=== PATIENT | female | born 1930 | race Caucasian/White ===

== ENCOUNTER 2017-07-02 14:07 | Inpatient (IN) | payer MEDICARE ==
[2017-07-02] MEDS ORDERED: Aspirin Low Dose CHEW TAB* 81 MG PO ONE (14:24)
[2017-07-02] MEDS ORDERED: Ondansetron INJ* 2 MG/ML VIAL IV ONE (14:25)
[2017-07-02] MEDS ORDERED: fentaNYL* 50 MCG/ML 2 ML VIAL (100 MCG VIAL) IV SLOW PU ONE ×2 (14:26→16:17)
[2017-07-02 14:46] LABS: Hematocrit 39 % (35-47); Hemoglobin 13.3 g/dl (12.0-16.0); Mean Corpuscular HGB Conc 34 g/dl (31-36); Mean Corpuscular Hemoglobin 31 pg (27-31); Mean Corpuscular Volume 93 fL (80-97); Mean Platelet Volume 9 um3 (7.4-10.4); Red Blood Count 4.24 10^6/ul (4.0-5.4); Red Cell Distribution Width 15 % (10.5-15); White Blood Count 5.4 10^3/ul (3.5-10.8)
[2017-07-02 14:58] LABS: BUN/Creatinine Ratio 19.3 (8-20); Calcium 9.5 mg/dL (8.6-10.3); EGFR African American 44.2 (>60); EGFR Non-African American 34.4 (>60); Globulin 3.8 g/dL (2-4); Potassium 3.4 mmol/L (3.5-5.0); Total Bilirubin 1.2 mg/dL (0.2-1.0); Total Protein 7.8 g/dL (6.4-8.9)
--- NOTE | 2017-07-02 15:35 | RAD ---
Indication: Right hip pain and injury. AP view the pelvis and lateral views of the right hip demonstrates fracture of the neck of the right femur with overriding of the fracture fragments. IMPRESSION: Fracture through the neck of the right femur with overriding of the fracture fragments.
--- NOTE | 2017-07-02 15:35 | RAD ---
Indication: Right Knee pain. 2 views of the left knee demonstrates no fracture. No joint effusion is noted. Degenerative changes of the patellofemoral joint is noted. IMPRESSION: No fracture of the right knee is noted.
--- NOTE | 2017-07-02 15:36 | RAD ---
Indication: Preop clearance. Single view of the chest and shape cardiomegaly. Patient is status post tracer thoracotomy. Lung brothers appear hyperinflated. No alveolar consolidation is noted. IMPRESSION: Cardiomegaly. Hyperinflated lung brothers with no definite evidence of pneumonia.
[2017-07-02] MEDS ORDERED: Potassium Chlor TAB* 20 MEQ TAB.ER PO ONE (16:30)
[2017-07-02] MEDS: hydrALAZINE IV* 20 MG/ML VIAL IV SLOW PU PRN ×2 (17:45→23:44)
[2017-07-02] MEDS: oxyCODONE TAB* 5 MG TAB PO PRN ×2 (17:47→22:18)
--- NOTE | 2017-07-02 18:21 | ED ---
Miranda Lee Thomas, scribed for Raciel Adam MD on 07/02/17 at 1426 . Lower Extremity - HPI Summary HPI Summary: The pt is an 86 y/o F accompanied by son and c/o R hip pain s/p a fall today at14:00. She struck her L hip when she fell down two steps, and she attributes her fall to my right knee gave out. The pain radiates to her knee, but she also notes chronic knee pain. The pain is rated 10/10. The pain is aggravated by movement and alleviated by nothing. The patient has not treated the pain with anything [employer]. She additionally c/o a scrape to her L knee. Pt denies pelvic pain, lower back pain, neck pain, head pain, LOC, and R knee swelling ( she reports that her R knee is unchanged form baseline). She denies any head trauma during this fall. PMHx: A-Fib, HTN, hypothyroidism, CAD, CVA, and arthritis. PSHx: triple bypass (8 years ago), and total knee replacement, hernia. SHx: daily alcohol, former smoker, no illicit drugs. She takes ASA 81mg at home. The last time she ate was 13:00. - History of Current Complaint Chief Complaint: EDExtremityLower Stated Complaint: RT HIP PAIN Time Seen by Provider: 07/02/17 14:16 Hx Obtained From: Patient, Family/Outside Salesperson - son is present Mechanism Of Injury: Fall From Height Of: - two stairs Onset of Pain: Immediate Onset/Duration: Minutes - she fell today at 14:00 Pain Intensity: 10 Pain Scale Used: 0-10 Numeric Timing: Constant Associated Signs And Symptoms: Positive: Knee Pain - although she notes that this may be chronic, Other - POS: scrape to her L knee; NEG: pelvic pain, lower back pain, neck pain, head pain, LOC, or any head trauma. Negative: Swelling - no swelling to R knee, Syncope Aggravating Factor(s): Movement Alleviating Factor(s): Nothing - Allergies/Home Medications Allergies/Adverse Reactions: Allergies Allergy/AdvReac Type Severity Reaction Status Date / Time Levofloxacin [From Levaquin] AdvReac Mild Nausea Verified 07/06/16 11:35 Amlodipine [From Norvasc] AdvReac See Comment Verified 07/02/17 17:28 Atorvastatin [From Lipitor] AdvReac Muscle Ache Verified 07/02/17 17:28 Morphine AdvReac See Comment Verified 07/02/17 17:27 Niacin AdvReac GI Upset Verified 07/02/17 17:28 Ramipril [From Altace] AdvReac Coughing Verified 07/02/17 17:28 Simvastatin [From Zocor] AdvReac Muscle Ache Verified 07/02/17 17:28 Valsartan [From Diovan] AdvReac Fatigue Verified 07/02/17 17:28 Home Medications: Home Medications Aspirin [Aspirin 81 MG TAB] 81 mg PO DAILY 07/02/17 [History Confirmed 07/02/17] Coenzyme Q10 (Ubidecarenone) [Coenzyme Q-10] 100 mg PO DAILY 07/02/17 [History Confirmed 07/02/17] PMH/Surg Hx/FS Hx/Imm Hx Previously Healthy: No Endocrine/Hematology History: Reports: Hx Thyroid Disease - hypothyroidism Cardiovascular History: Reports: Hx Coronary Artery Disease, Hx Hypertension, Other Cardiovascular Problems/Disorders - A-fib Denies: Hx Pacemaker/ICD Musculoskeletal History: Reports: 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, per pt' s physician Sensory History: Reports: Hx Contacts or Glasses - not here Denies: Hx Hearing Aid Opthamlomology History: Reports: Hx Contacts or Glasses - not here Neurological History: Reports: Other Neuro Impairments/Disorders - occassional confusion & forgetfulness Psychiatric History: Reports: Hx Depression Denies: Hx Panic Disorder - Surgical History Surgery Procedure, Year, and Place: CABG 2006, TOTAL KNEE REPLACEMENT (LEFT), HERNIA Hx Anesthesia Reactions: No Infectious Disease History: Yes Infectious Disease History: Denies: Traveled Outside the [place] in Last 30 Days - Family History Known Family History: Positive: Cardiac Disease, Diabetes, Other - breast cancer - Social History Alcohol Use: Daily Alcohol Amount: 1 drink per day Substance Use Type: Reports: None Smoking Status (MU): Former Smoker Review of Systems Positive: Other - POS: R hip pain (08/29, worsened with movement, radiates to knee), knee pain (although she notes chronic knee pain as well); NEG: pelvic pain, lower back pain, neck pain, head pain, R knee swelling Neurological: Other - NEG: LOC All Other Systems Reviewed And Are Negative: Yes Physical Exam - Summary Physical Exam Summary: VITAL SIGNS: Reviewed. GENERAL: ~Patient is an elderly female who is lying comfortable in the stretcher. She is not in any distress. HEAD AND FACE: No signs of trauma. ~No ecchymosis, hematomas or skull depressions. No sinus tenderness. EYES: PERRLA, EOMI x 2, No injected conjunctiva, no nystagmus. EARS: Hearing grossly intact. Ear canals and tympanic membranes are within normal limits. MOUTH: Oropharynx within normal limits. NECK: Supple, trachea is midline, no adenopathy, no JVD, no carotid bruit, no c- spine tenderness, neck with full ROM. CHEST: Symmetric, no tenderness at palpation LUNGS: Clear to auscultation bilaterally. No wheezing or crackles. CVS: Regular rate and rhythm, S1 and S2 present, no murmurs or gallops appreciated. ABDOMEN: Soft, non-tender. No signs of distention. No rebound no guarding, and no masses palpated. Bowel sounds are normal. EXTREMITIES: There is shortening of the right lower extremity. There are good pulses and good capillary refill. Decreased ROM in her L hip secondary to pain. Otherwise, the patient has FROM in all other major joints, no edema, no cyanosis or clubbing. NEURO: Alert and oriented x 3. No acute neurological deficits. Speech is normal and follows commands. SKIN: Dry and warm Triage Information Reviewed: Yes Vital Signs On Initial Exam: Initial Vitals Temp Pulse Resp BP Pulse Ox 99.3 F 82 20 176/106 96 07/02/17 14:16 07/02/17 14:16 07/02/17 14:16 07/02/17 14:16 07/02/17 14:16 Vital Signs Reviewed: Yes - Diya Coma Scale Coma Scale Total: 15 Diagnostics - Vital Signs Vital Signs Temp Pulse Resp BP Pulse Ox 07/02/17 14:16 99.3 F 82 20 176/106 96 - Laboratory Lab Results: Lab Results 07/02/17 07/02/17 07/02/17 Range/Units 14:33 14:33 14:33 WBC 5.4 (3.5-10.8) 10^3/ul RBC 4.24 (4.0-5.4) 10^6/ul Hgb 13.3 (12.0-16.0) g/dl Hct 39 (35-47) % MCV 93 (80-97) fL MCH 31 (27-31) pg MCHC 34 (31-36) g/dl RDW 15 (10.5-15) % Plt Count 136 L (150-450) 10^3/ul MPV 9 (7.4-10.4) um3 Neut % (Auto) 55.6 (38-83) % Lymph % (Auto) 30.0 (25-47) % O'Brien % (Auto) 12.2 H (1-9) % Eos % (Auto) 1.8 (0-6) % Baso % (Auto) 0.4 (0-2) % Absolute Neuts (auto) 3.0 (1.5-7.7) 10^3/ul Absolute Lymphs (auto) 1.6 (1.0-4.8) 10^3/ul Absolute Monos (auto) 0.7 (0-0.8) 10^3/ul Absolute Eos (auto) 0.1 (0-0.6) 10^3/ul Absolute Basos (auto) 0 (0-0.2) 10^3/ul Absolute Nucleated RBC 0.01 10^3/ul Nucleated RBC % 0.1 APTT 27.9 (26.0-36.3) seconds Sodium 137 (133-145) mmol/L Potassium 3.4 L (3.5-5.0) mmol/L Chloride 101 (101-111) mmol/L Carbon Dioxide 29 (22-32) mmol/L Anion Gap 7 (2-11) mmol/L BUN 28 H (6-24) mg/dL Creatinine 1.45 H (0.51-0.95) mg/dL Est GFR ( Amer) 44.2 (>60) Est GFR (Non-Af Amer) 34.4 (>60) BUN/Creatinine Ratio 19.3 (8-20) Glucose 104 H (70-100) mg/dL Calcium 9.5 (8.6-10.3) mg/dL Total Bilirubin 1.20 H (0.2-1.0) mg/dL AST 25 (13-39) U/L ALT 14 (7-52) U/L Alkaline Phosphatase 85 (34-104) U/L Total Creatine Kinase 41 (10-223) U/L Total Protein 7.8 (6.4-8.9) g/dL Albumin 4.0 (3.2-5.2) g/dL Globulin 3.8 (2-4) g/dL Albumin/Globulin Ratio 1.1 (1-3) Result Diagrams: 07/02/17 14:33 07/02/17 14:33 Lab Statement: Any lab studies that have been ordered have been reviewed, and results considered in the medical decision making process. - Radiology CXR Xray Interpretation: No Acute Changes - Cardiomegaly. Hyperinflated lung brothers with no definite evidence of pneumonia. Radiology Interpretation Completed By: Radiologist Knee XR Xray Interpretation: No Acute Changes - no fracture. Radiology Interpretation Completed By: Radiologist Hip XR Xray Interpretation: Positive (See Comments) - Fracture through the neck of the right femur with overriding of the fracture fragments. Radiology Interpretation Completed By: Radiologist - EKG 15:54 Cardiac Rate: NL EKG Interpretation: A-Fib, unchanged from 08/03/2015 Lower Extremity Course/Dx - Course Assessment/Plan: The pt is an 86 y/o F accompanied by son and c/o R hip pain s/ p a fall today at14:00. She struck her L hip when she fell down two steps, and she attributes her fall to my right knee gave out. The pain radiates to her knee, but she also notes chronic knee pain. The pain is rated 10/10. The pain is aggravated by movement and alleviated by nothing. The patient has not treated the pain with anything [employer]. She additionally c/o a scrape to her L knee. Pt denies pelvic pain, lower back pain, neck pain, head pain, LOC, and R knee swelling (she reports that her R knee is unchanged form baseline). She denies any head trauma during this fall. PMHx: A-Fib, HTN, hypothyroidism, CAD, CVA, and arthritis. PSHx: triple bypass (8 years ago), and total knee replacement, hernia. SHx: daily alcohol, former smoker, no illicit drugs. She takes ASA 81mg at home. The last time she ate was 13:00. All tests are without significant abnormalities except Potassium 3.4, for which the patient was given potassium chloride. Tests also reveal a chronic renal insufficiency. Hip XR reveals Fracture through the neck of the right femur with overriding of the fracture fragments. EKG shows A-Fib under rate control. The patient refused pain management; however, she eventually accepted Fentanyl 25 mcg IV x2. Since the patient has a neck fracture of the right hip, I discussed the case with Dr. Faith, orthopedics. He came and examined the patient. He recommends that the patient be admitted. He will consult for this case. I discussed the case with Dr. Ragsdale, hospitalist, who will accept the patient for admission to [facility]. The patient is hemodynamically stable and alert and oriented x3. - Diagnoses Differential Diagnosis/HQI/PQRI: Positive: Bursitis, Cellulitis, Contusion, Dislocation, Fracture (Closed), Sprain, Strain, Tendonitis, Other Provider Diagnoses: Femur neck fracture - Physician Notifications Discussed Care Of Patient With: Edgar Faith Time Discussed With Above Provider: 15:30 Instructed by Provider To: Other - Dr. Faith, orthopedics, came to the ED to assess the patient. I also consulted with Dr. Ragsdale, hospitalist, who will admit the patient to [facility] at 15:50. Discharge - Discharge Plan Condition: Fair Disposition: ADMITTED TO [facility] documentation as recorded by the Miranda manning Thomas accurately reflects the service I personally performed and the decisions made by me, Raciel Adam MD.
[2017-07-02] MEDS: HYDROmorphone* 1 MG/ML 1 ML SYR IV SLOW PU PRN (20:05)
--- NOTE | 2017-07-02 21:47 | HP ---
CC: Dr. Holly * HISTORY AND PHYSICAL: DATE OF ADMISSION: 07/02/17 PRIMARY CARE PROVIDER: Dr. Holly. CHIEF COMPLAINT: Fall and right hip pain. HISTORY OF PRESENT ILLNESS: Ms. Montaño is an 86-year-old female who states that she was walking from her back deck to the yard when she fell. She states that there are 2 steps from her back deck to the yard. There is no railing there. She states that she moved from the deck to the first step without any difficulties, but going from first step to the second step she states that she believes her right leg gave out. She landed on both knees on a slate on landing. She then from her knees fell to her right side. She felt as if she lost balance. She denies any chest pain or lightheadedness. She did not hit her head. She states overall she had been feeling well. PAST MEDICAL HISTORY: 1. Coronary artery disease, status post CABG 8 years ago. 2. Hypertension. 3. History of CVA in 2014. 4. AFib. PAST SURGICAL HISTORY: 1. CABG - 3 vessel. 2. Left total knee replacement. 3. Lens implants bilaterally. MEDICATIONS: 1. Coenzyme Q10 100 mg p.o. daily. 2. Aspirin 81 mg p.o. daily. 3. Compounded T3 and T4, dose unknown. ALLERGIES: AMLODIPINE, LIPITOR, MORPHINE, NIACIN, RAMIPRIL, SIMVASTATIN, VALSARTAN, and LEVOFLOXACIN. FAMILY HISTORY: Mom in her 60's of complications related to type 1 diabetes. Dad from coronary artery disease. SOCIAL HISTORY: The patient is a former smoker. She quit at least 20 to 30 years ago. She does drink alcohol on occasion. She is . She has 2 children. Her son, Fidel is her healthcare proxy. REVIEW OF SYSTEMS: The patient denies any fevers, chills, or anorexia. No chest pain. She does complain of intermittent right ankle swelling. No cough. No shortness of breath. No nausea, vomiting, abdominal pain. She does admit to constipation. No hematochezia. No hematuria. No dysuria. No focal weakness or sensory loss. No sudden changes in vision. No dysphagia. Currently, her right hip and right knee are bothering her. No rash. She does admit to depression since her almost 1 year ago. PHYSICAL EXAMINATION GENERAL: The patient is a well-developed, elderly female, sitting up in a stretcher and in no acute distress. VITAL SIGNS: Blood pressure 190/122, pulse 85, respirations 22, temp 99.3, O2 sat is 94% on room air. HEENT: Pupils are equal. There is evidence of lens implants. Extraocular muscles are intact. Oropharynx is clear. Oral mucosa is moist. There is no submandibular, cervical, or supraclavicular adenopathy. Thyroid is not enlarged. No thyroid nodules are noted. PULMONARY: Lungs are clear to auscultation bilaterally. CARDIAC: Normal S1 and S2. Heart rate is irregularly irregular, but at a controlled rate. I did not appreciate any murmurs. There is no lower extremity edema. ABDOMEN: Bowel sounds are present. Abdomen is soft, nontender, nondistended. MUSCULOSKELETAL: Right lower extremity is shortened externally rotated. SKIN: Warm and dry. There are no rashes. NEURO: Cranial nerves II through XII are grossly intact. Sensation is intact to light touch throughout. Strength in the upper extremities is 5/5 and symmetric bilaterally. Lower extremity strength is not tested due to right hip fracture. PSYCH: The patient is alert. She is oriented to x3. Affect appears appropriate. LABORATORY DATA: WBC 5.4, hemoglobin 13.3, hematocrit 39, platelets 136, PTT 27.9. Sodium 137, potassium 3.4, chloride 101, CO2 of 29, BUN 28, creatinine 1.45, glucose 104, calcium 9.5, bilirubin 1.2, AST 25, ALT 14, alk phos 85, CPK 41, albumin of 4.0. EKG reveals atrial fibrillation with right bundle-branch block. Chest x-ray, cardiomegaly and hyperinflated lungs without evidence of pneumonia. Right knee x- ray no fracture of the right knee is noted. Right hip and pelvis x-rays reveal fracture through the neck of the right femur with overriding of the fracture fragments. ASSESSMENT AND PLAN: Ms. Montaño is an 86-year-old female who sustained a mechanical fall on the day of admission, which resulted in a right hip fracture. 1. Right hip fracture. At this point, the patient appears to be medically stable for the OR. Her EKG is essentially unchanged from EKG from 2015. Her last echocardiogram was in 2015, which revealed moderate concentric LVH. There is focal wall motion abnormality noted. Severe hypokinesis of the proximal inferior septum, proximal inferior wall, and proximal low posterior wall was noted. The EF was estimated to be 45 to 50%. There is moderate to severe tricuspid regurgitation, mild pulmonary hypertension noted at that time. The patient states in general, she is active. She is able to climb 13 stairs without any chest pain or shortness of breath. She does her grocery shopping and walks around the grocery store without any chest pain or shortness of breath. She states that she does go out and golf. She does not walk the course any longer due to pain in her right knee; however, she is able to golf without any discomfort or issues. The patient will continue on her aspirin for now. Plan is for surgery tomorrow afternoon with Dr. Faith. For now, she will be placed on bed rest and she will have Tylenol, oxycodone, and Dilaudid as needed for pain. 2. Hypertension. The patient states that her blood pressure in general runs in the 130s/70s range. Her blood pressure currently is markedly elevated, however, likely related to pain. She will have p.r.n. hydralazine available. She is very hesitant to take this medication and she feels that blood pressure medications cause more problem than good. I have encouraged her to accept the medication at least in the short term. 3. Atrial fibrillation. Currently, the patient's heart rate is controlled. She is not on any blood thinner other than baby aspirin daily. We will monitor for tachycardia or any other complications related to AFib. 4. DVT prophylaxis. The patient will have SCDs alone for DVT prophylaxis as she will be going to the OR tomorrow. DVT prophylaxis should be resumed as soon as possible after surgery. 5. Code status is full and again the patient indicates her son, Fidel is her healthcare proxy. TIME SPENT: 65 minutes was spent admitting this patient. [id number]/[facility] #: [id number] LAURY
[2017-07-02] MEDS ORDERED: Heparin VIAL(*) 5000 UNITS/ML VIAL (FIVE THOUSAND) SUBCUT SCH (22:00)
[2017-07-02] MEDS: NS 0.9% 1000 ML* 1,000 ML IV SCH (22:19)
[2017-07-03] MEDS: HYDROmorphone* 1 MG/ML 1 ML SYR IV SLOW PU PRN ×3 (00:54→12:52)
[2017-07-03] MEDS ORDERED: LORazepam INJ* 2 MG/ML 1 ML VIAL IV PUSH PRN (02:01)
[2017-07-03] MEDS: oxyCODONE TAB* 5 MG TAB PO PRN (02:40)
[2017-07-03] MEDS ORDERED: Famotidine IV* 10 MG/ML 2 ML (20 mg) IV SLOW PU ONE (08:38)
[2017-07-03] MEDS: COENZYME Q10 100 MG PO SCH (09:47)
[2017-07-03] MEDS: Aspirin EC Low Dose* 81 MG TAB.EC PO SCH (09:47)
--- NOTE | 2017-07-03 10:15 | PN ---
Subjective Date of Service: 07/03/17 Interval History: Pt is feeling ok. Her pain is better managed today. She is noting that she is having difficult time getting out her thoughts due to the pain medication. She denies any SOB. Over night she had a hard time urinating on the bedpan but this AM she has been able to go without any issues. Objective Active Medications: Acetaminophen (Tylenol Tab*) 650 mg PO Q4H PRN PRN Reason: PAIN Aspirin (Aspirin Ec Low Dose*) 81 mg PO DAILY [facility] Last Admin: 07/03/17 09:47 Dose: Not Given Coenzyme Q10 (Coenzyme Q10 (Nf)) 1 cap PO DAILY [facility] Last Admin: 07/03/17 09:47 Dose: Not Given Hydralazine HCl (Apresoline Iv*) 5 mg IV SLOW PU Q6H PRN PRN Reason: SBP>170 Last Admin: 07/02/17 23:44 Dose: 5 mg Hydromorphone HCl (Dilaudid Iv*) 0.5 mg IV SLOW PU Q4H PRN PRN Reason: PAIN Last Admin: 07/03/17 07:54 Dose: 0.5 mg Sodium Chloride (Ns 0.9% 1000 Ml*) 1,000 mls @ 75 mls/hr IV PER RATE [facility] Last Admin: 07/02/17 22:19 Dose: 75 mls/hr Lorazepam (Ativan Inj*) 0.5 mg IV PUSH Q6H PRN PRN Reason: ANXIETY Oxycodone HCl (Roxycodone Tab*) 5 mg PO Q4H PRN PRN Reason: PAIN Last Admin: 07/03/17 02:40 Dose: 5 mg Vital Signs 07/02/17 07/02/17 07/02/17 16:14 16:15 16:24 Temperature Pulse Rate 99 Respiratory 22 Rate Blood Pressure 150/121 (mmHg) O2 Sat by Pulse 96 Oximetry 07/02/17 07/02/17 07/02/17 16:30 16:56 17:00 Temperature Pulse Rate 97 85 Respiratory Rate Blood Pressure 195/118 190/122 (mmHg) O2 Sat by Pulse 94 82 Oximetry 07/02/17 07/02/17 07/02/17 17:20 17:25 17:29 Temperature 97.9 F 97.9 F Pulse Rate 102 102 Respiratory 18 18 18 Rate Blood Pressure 185/110 185/110 (mmHg) O2 Sat by Pulse 97 97 Oximetry 07/02/17 07/02/17 07/02/17 17:47 18:08 19:07 Temperature Pulse Rate 100 Respiratory 16 18 25 Rate Blood Pressure 164/100 (mmHg) O2 Sat by Pulse 99 Oximetry 07/02/17 07/02/17 07/02/17 19:47 20:05 21:05 Temperature Pulse Rate Respiratory 16 16 16 Rate Blood Pressure (mmHg) O2 Sat by Pulse Oximetry 07/02/17 07/02/17 07/02/17 21:22 22:18 23:21 Temperature 98.2 F Pulse Rate 97 Respiratory 16 16 16 Rate Blood Pressure 190/112 (mmHg) O2 Sat by Pulse 96 Oximetry 07/03/17 07/03/17 07/03/17 00:18 00:47 00:54 Temperature Pulse Rate 112 Respiratory 16 16 Rate Blood Pressure 184/81 (mmHg) O2 Sat by Pulse Oximetry 07/03/17 07/03/17 07/03/17 01:54 02:40 03:29 Temperature 97.6 F Pulse Rate 93 Respiratory 16 16 16 Rate Blood Pressure 157/92 (mmHg) O2 Sat by Pulse 97 Oximetry 07/03/17 07/03/17 07/03/17 04:40 07:54 08:00 Temperature Pulse Rate Respiratory 16 19 20 Rate Blood Pressure (mmHg) O2 Sat by Pulse Oximetry 07/03/17 07/03/17 08:54 08:57 Temperature 98.0 F Pulse Rate 77 Respiratory 18 14 Rate Blood Pressure 150/84 (mmHg) O2 Sat by Pulse 97 Oximetry Oxygen Devices in Use Now: None Appearance: Elderly thin female lying in bed, NAD Eyes: No Scleral Icterus Ears/Nose/Mouth/Throat: Mucous Membranes Moist Respiratory: Symmetrical Chest Expansion and Respiratory Effort, Clear to Auscultation - anteriorly Cardiovascular: NL Sounds; No Murmurs; No JVD, RRR, No Edema Abdominal: NL Sounds; No Tenderness; No Distention Extremities: No Clubbing, Cyanosis Skin: No Rash or Ulcers, No Nodules or Sclerosis Neurological: - - slilghtly groggy Result Diagrams: 07/02/17 14:33 07/02/17 14:33 Additional Lab and Data: Lab Results 07/02/17 07/02/17 07/02/17 Range/Units 14:33 14:33 14:33 WBC 5.4 (3.5-10.8) 10^3/ul RBC 4.24 (4.0-5.4) 10^6/ul Hgb 13.3 (12.0-16.0) g/dl Hct 39 (35-47) % MCV 93 (80-97) fL MCH 31 (27-31) pg MCHC 34 (31-36) g/dl RDW 15 (10.5-15) % Plt Count 136 L (150-450) 10^3/ul MPV 9 (7.4-10.4) um3 Neut % (Auto) 55.6 (38-83) % Lymph % (Auto) 30.0 (25-47) % [place] % (Auto) 12.2 H (1-9) % Eos % (Auto) 1.8 (0-6) % Baso % (Auto) 0.4 (0-2) % Absolute Neuts (auto) 3.0 (1.5-7.7) 10^3/ul Absolute Lymphs (auto) 1.6 (1.0-4.8) 10^3/ul Absolute Monos (auto) 0.7 (0-0.8) 10^3/ul Absolute Eos (auto) 0.1 (0-0.6) 10^3/ul Absolute Basos (auto) 0 (0-0.2) 10^3/ul Absolute Nucleated RBC 0.01 10^3/ul Nucleated RBC % 0.1 APTT 27.9 (26.0-36.3) seconds Sodium 137 (133-145) mmol/L Potassium 3.4 L (3.5-5.0) mmol/L Chloride 101 (101-111) mmol/L Carbon Dioxide 29 (22-32) mmol/L Anion Gap 7 (2-11) mmol/L BUN 28 H (6-24) mg/dL Creatinine 1.45 H (0.51-0.95) mg/dL Est GFR ( Amer) 44.2 (>60) Est GFR (Non-Af Amer) 34.4 (>60) BUN/Creatinine Ratio 19.3 (8-20) Glucose 104 H (70-100) mg/dL Calcium 9.5 (8.6-10.3) mg/dL Total Bilirubin 1.20 H (0.2-1.0) mg/dL AST 25 (13-39) U/L ALT 14 (7-52) U/L Alkaline Phosphatase 85 (34-104) U/L Total Creatine Kinase 41 (10-223) U/L Total Protein 7.8 (6.4-8.9) g/dL Albumin 4.0 (3.2-5.2) g/dL Globulin 3.8 (2-4) g/dL Albumin/Globulin Ratio 1.1 (1-3) Assess/Plan/Problems-Billing Ms Montaño is an 86 yo F who has a h/o CAD, HTN and afib who presented to the ER with c/o R hip pain s/p mechanical fall. - Patient Problems (1) Closed right hip fracture Current Visit: Yes Status: Acute Code(s): S72.001A - FRACTURE OF UNSP PART OF NECK OF RIGHT FEMUR, INIT SNOMED Code(s): 192082728 Comment: Plan is for the patient to go to the OR later today. Management per orthopedics. (2) HTN (hypertension) Current Visit: Yes Status: Chronic Code(s): I10 - ESSENTIAL (PRIMARY) HYPERTENSION SNOMED Code(s): 14278746 Comment: BP was markedly elevated yesterday in the ER. Improved with prn hydralazine. She will likely need to have an oral agent started post-op however the patient is resistant. Will monitor her BP closely and discuss options with the patient if it becomes clear she needs a program aide group work antihypertensive. For now continue prn hydralazine. (3) Atrial fibrillation Current Visit: Yes Status: Chronic Code(s): I48.91 - UNSPECIFIED ATRIAL FIBRILLATION SNOMED Code(s): 71737814 Comment: The patient is rate controlled on no medications. She is not on any anticoagulants. (4) CAD (coronary artery disease) Current Visit: Yes Status: Chronic Code(s): I25.10 - ATHSCL HEART DISEASE OF [place] CORONARY ARTERY W/O ANG PCTRS SNOMED Code(s): 13228126 Comment: No active issues at this time. Continue ASA 81mg daily. (5) Hypothyroidism Current Visit: Yes Status: Acute Code(s): E03.9 - HYPOTHYROIDISM, UNSPECIFIED SNOMED Code(s): 34597607 Comment: The patient takes compounded leveothyroxine and liothyronine. Her family brought in her medication and this will be started. (6) DVT prophylaxis Current Visit: Yes Status: Acute Code(s): ZTB1491 - SNOMED Code(s): 440778535 Comment: SCDs (7) Patient is full code Current Visit: Yes Status: Acute Priority: High Onset Date: 08/06/15 Code(s): Z78.9 - OTHER SPECIFIED HEALTH STATUS SNOMED Code(s): 398178706
[2017-07-03 10:26] LABS: Hematocrit 39 % (35-47); Hemoglobin 13.3 g/dl (12.0-16.0); Mean Corpuscular HGB Conc 35 g/dl (31-36); Mean Corpuscular Hemoglobin 32 pg (27-31); Mean Corpuscular Volume 92 fL (80-97); Mean Platelet Volume 9 um3 (7.4-10.4); Red Cell Distribution Width 15 % (10.5-15); White Blood Count 7.2 10^3/ul (3.5-10.8)
[2017-07-03 10:40] LABS: BUN/Creatinine Ratio 21.3 (8-20); Calcium 8.9 mg/dL (8.6-10.3); EGFR Non-African American 56.7 (>60); Potassium 3.5 mmol/L (3.5-5.0)
[2017-07-03 12:10] LABS: Urine Bacteria 2+ (Absent); Urine Bilirubin Negative (Negative); Urine Glucose Negative (Negative); Urine Nitrite Negative (Negative)
[2017-07-03] MEDS: LEVOTHYROXINE PO SCH (12:21)
[2017-07-03] MEDS: LIOTHYRONINE PO SCH (12:21)
[2017-07-03] MEDS: cefTRIAXone VIAL(*) 1,000 MG in NS 0.9% 50 ML* 50 ML IVPB SCH (14:17)
[2017-07-03] MEDS ORDERED: Bupivacaine 0.5% W/EPI SDV* 10 ML VIAL INJ ONE (14:52)
[2017-07-03] MEDS ORDERED: Sodium Citrate/Citric Acid* 15 ML UDC ONE (15:36)
[2017-07-03] MEDS ORDERED: fentaNYL* 50 MCG/ML 2 ML VIAL (100 MCG VIAL) ONE ×2 (15:53→19:17)
[2017-07-03] MEDS ORDERED: Lidocaine 2% PF * 5 ML VIAL ONE (16:13)
[2017-07-03] MEDS ORDERED: Propofol* 10 MG/ML 20 ML BTL IV PUSH ONE (16:13)
[2017-07-03] MEDS ORDERED: Succinylcholine* 20 MG/ML 10 ML VIAL ONE (16:26)
[2017-07-03] MEDS ORDERED: Labetalol IV* 5 MG/ML 20 ML VIAL ONE (17:32)
[2017-07-03] MEDS ORDERED: Ondansetron INJ* 2 MG/ML VIAL ONE (18:39)
--- NOTE | 2017-07-03 19:15 | RAD ---
INDICATION: Status post total right hip replacement surgery. COMPARISON: Comparison is made with a prior x-ray study of the right hip from July 02, 2017. TECHNIQUE: AP and lateral films of the right hip were obtained. FINDINGS: The patient is status post right hip replacement surgery. The bones and prostheses are in normal alignment. There is air in the surrounding soft tissues consistent with the patient's recent surgery. There are multiple surgical ciaran present laterally. IMPRESSION: STATUS POST RIGHT HIP REPLACEMENT SURGERY.
[2017-07-03] MEDS: fentaNYL* 50 MCG/ML 2 ML VIAL (100 MCG VIAL) IV PRN ×2 (19:19→19:50)
[2017-07-03] MEDS: NS 0.9% 1000 ML* 1,000 ML IV SCH (20:21)
[2017-07-04 04:58] LABS: Hematocrit 34 % (35-47); Hemoglobin 11.4 g/dl (12.0-16.0); Mean Corpuscular HGB Conc 34 g/dl (31-36); Mean Corpuscular Hemoglobin 31 pg (27-31); Mean Corpuscular Volume 92 fL (80-97); Mean Platelet Volume 9 um3 (7.4-10.4); Red Blood Count 3.68 10^6/ul (4.0-5.4); Red Cell Distribution Width 15 % (10.5-15); White Blood Count 14.1 10^3/ul (3.5-10.8)
[2017-07-04] MEDS ORDERED: NS 0.9% 250 ML* 250 ML IV ONE (05:00)
[2017-07-04] MEDS: NS 0.9% 1000 ML* 1,000 ML IV SCH ×2 (05:37→18:34)
--- NOTE | 2017-07-04 06:39 | OP ---
DATE OF OPERATION: 07/03/17 - ROOM #335 DATE OF : 34 SURGEON: Edgar Faith MD LEAF SUCKER OPERATOR: ROBERT Valderrama- ANESTHESIOLOGIST: Tung Small DO ANESTHESIA: General. PRE-OP DIAGNOSIS: Right completely displaced femoral neck fracture, [place] IV. POST-OP DIAGNOSIS: Right completely displaced femoral neck fracture, [place] IV. OPERATIVE PROCEDURE: Right non-cemented hip hemiarthroplasty. CONDITION: The patient tolerated the procedure well. COMPONENTS USED: Size 46 outer diameter head, size #3.5 Accolade stem, Mears components, and size 28 mm inner diameter head and 0 neck. The Hemovac drain was not used. INDICATIONS FOR SURGERY: Ms. Mely Montaño is an 86-year-old female who was in her usual state of good health when she slipped and fell at home and sustained a femoral neck fracture, completely displaced. She lives alone and she was transported to the [facility], where appropriate films verified that she had a completely displaced femoral neck fracture. The risks and benefits of operative versus nonoperative intervention were thoroughly discussed with the patient and her son and due to the fact that she did not have prior hip pain in the past prior to the fall and the fact that she is a household and infrequent community ambulator, the plan was for her to have a right hip hemiarthroplasty. The patient was seen and evaluated by Medicine, Dr. Coby Ragsdale, and Dr. Coby Ragsdale gave the patient a favorable evaluation that surgery in the form of hemiarthroplasty of the right hip could be performed with acceptable risk. ESTIMATED BLOOD LOSS: Minimal. DESCRIPTION OF PROCEDURE: The patient was subsequently taken to the operating room therefore on 07/03/17, and after anesthesia was administered, the patient was appropriately positioned on the operating room table right side up and a time-out was called prior to the start of procedure. Of note, in the pre-op holding area, I placed my initials on the patient's right hip to verify that the right hip was indeed the correct hip. Again, we proceeded to the operating room, and prior to the start of the procedure, time- out was called, again verified that the right hip was the correct hip and that all necessary equipment for the procedure was available for my use. A standard modified Schwab incision was used to approach the right hip. Skin was incised with a #10 blade followed by a second #10 blade for superficial and deep subcu. The tensor fascia eloisa was identified and split along the length of the incision, which was approximately 7 cm. The tensor fascia eloisa was then retracted, and my acute care certified nursing assistant, Gladys Sahu, internally rotated the hip to place the short external rotators on stretch, they were tagged and reflected posteriorly to protect the underlying sciatic nerve. Then the capsule was tagged and then reflected posteriorly and then I readily identified the acetabulum and the femoral head. With the aid of corkscrew device, the femoral head was removed and passed to the back table. Then, the neck was cut in the usual standard fashion and then I used the appropriate acetabular sizers to verify that we need a size 46-mm femoral head outer bearing. We verified that we need a size 46, which was then prepared. I prepared with my acute care certified nursing assistant, Gladys Sahu, the proximal femur and then I verified I needed a size #3.5 Accolade stem 127 degree angle. I then with a broach, performed trial reduction and verified that in full extension, the sciatic nerve was not taut. At 90 degrees, the hip was stable; adduction across the midline, the hip was stable; internal rotation and adduction, the hip remained stable, after which I then dislocated the hip, removed the trial components and then placed the actual components in place and verified our excellent intraoperative reduction, was repeated with the actual components in place, after which we then irrigated the wound copiously and then closed the tensor fascia eloisa with interrupted Ti- Cron suture in a [id number] fashion followed by 0 and 2-0 Vicryl for deep and superficial subcu, followed by skin ciaran for skin. Standard dressings were applied including abduction pillow and the patient was then transported off the operating table through the stretcher into the recovery room having tolerated the procedure well. [id number]/[facility] #: [id number] LAURY
[2017-07-04 07:47] LABS: BUN/Creatinine Ratio 22.8 (8-20); Calcium 8.3 mg/dL (8.6-10.3); EGFR African American 67.2 (>60); EGFR Non-African American 52.2 (>60); Potassium 3.5 mmol/L (3.5-5.0)
[2017-07-04] MEDS: LEVOTHYROXINE PO SCH (07:54)
[2017-07-04] MEDS: Aspirin EC Low Dose* 81 MG TAB.EC PO SCH (07:54)
[2017-07-04] MEDS: LIOTHYRONINE PO SCH (07:54)
[2017-07-04] MEDS: Acetaminophen TAB* 325 MG PO PRN ×2 (07:54→16:51)
--- NOTE | 2017-07-04 09:28 | PN ---
Subjective Date of Service: 07/04/17 Interval History: Pt is feeling well. Her son notes that she is grumpy and slightly confused this AM which he states is usual as she comes out of anesthesia. She states the hip abductor pillow is uncomfortable. She also would like her coffee. She denies any significant pain in the R hip. Objective Active Medications: Acetaminophen (Tylenol Tab*) 650 mg PO Q4H PRN PRN Reason: PAIN Last Admin: 07/04/17 07:54 Dose: 650 mg Aspirin (Aspirin Ec Low Dose*) 81 mg PO DAILY [facility] Last Admin: 07/04/17 07:54 Dose: 81 mg Coenzyme Q10 (Coenzyme Q10 (Nf)) 1 cap PO DAILY [facility] Last Admin: 07/03/17 09:47 Dose: Not Given Hydralazine HCl (Apresoline Iv*) 5 mg IV SLOW PU Q6H PRN PRN Reason: SBP>170 Last Admin: 07/02/17 23:44 Dose: 5 mg Hydromorphone HCl (Dilaudid Iv*) 0.5 mg IV SLOW PU Q4H PRN PRN Reason: PAIN Last Admin: 07/03/17 12:52 Dose: 0.5 mg Ceftriaxone Sodium 1,000 mg/ (Sodium Chloride) 50 mls @ 200 mls/hr IVPB Q24H [facility] Last Admin: 07/03/17 14:17 Dose: 200 mls/hr Sodium Chloride (Ns 0.9% 1000 Ml*) 1,000 mls @ 125 mls/hr IV PER RATE [facility] Last Admin: 07/04/17 05:37 Dose: 125 mls/hr Lorazepam (Ativan Inj*) 0.5 mg IV PUSH Q6H PRN PRN Reason: ANXIETY Pto: Levothyroxine 49.25 Mcg- Liothyronine 0.75 Mcg Cap 1 dose PO DAILY@0600 [facility] Last Admin: 07/04/17 07:54 Dose: 1 dose Oxycodone HCl (Roxycodone Tab*) 5 mg PO Q4H PRN PRN Reason: PAIN Last Admin: 07/03/17 02:40 Dose: 5 mg Vital Signs 07/03/17 07/03/17 07/03/17 11:43 12:52 13:52 Temperature 97.7 F Pulse Rate 68 Respiratory 14 20 18 Rate Blood Pressure 172/92 (mmHg) O2 Sat by Pulse 98 Oximetry 07/03/17 07/03/17 07/03/17 18:15 18:20 18:25 Temperature 97.2 F Pulse Rate 91 91 91 Respiratory 16 16 16 Rate Blood Pressure 137/96 138/85 141/89 (mmHg) O2 Sat by Pulse 93 92 93 Oximetry 07/03/17 07/03/17 07/03/17 18:30 18:35 18:45 Temperature Pulse Rate 90 95 90 Respiratory 14 14 14 Rate Blood Pressure 139/100 141/82 137/88 (mmHg) O2 Sat by Pulse 93 92 93 Oximetry 07/03/17 07/03/17 07/03/17 19:00 19:15 19:19 Temperature Pulse Rate 100 95 Respiratory 16 15 15 Rate Blood Pressure 160/92 136/89 (mmHg) O2 Sat by Pulse 92 93 Oximetry 07/03/17 07/03/17 07/03/17 19:30 19:45 19:50 Temperature 98.6 F Pulse Rate 96 89 Respiratory 15 14 14 Rate Blood Pressure 157/83 160/82 (mmHg) O2 Sat by Pulse 99 98 Oximetry 07/03/17 07/03/17 07/03/17 20:00 20:12 20:19 Temperature 98.2 F 98.2 F Pulse Rate 104 104 Respiratory 17 17 17 Rate Blood Pressure 148/88 148/88 (mmHg) O2 Sat by Pulse 93 93 Oximetry 07/03/17 07/03/17 07/03/17 20:44 20:49 20:50 Temperature Pulse Rate Respiratory 17 17 18 Rate Blood Pressure (mmHg) O2 Sat by Pulse Oximetry 07/03/17 07/03/17 07/03/17 20:59 22:15 22:31 Temperature 99.8 F 99.9 F Pulse Rate 107 121 109 Respiratory 18 17 Rate Blood Pressure 112/75 149/91 (mmHg) O2 Sat by Pulse 95 97 Oximetry 07/03/17 07/04/17 07/04/17 23:55 01:17 01:54 Temperature 97.3 F 99.2 F Pulse Rate 112 111 101 Respiratory 16 16 Rate Blood Pressure 171/96 163/74 165/72 (mmHg) O2 Sat by Pulse 97 99 Oximetry 07/04/17 07/04/17 04:41 07:49 Temperature 97.7 F Pulse Rate 98 Respiratory 16 12 Rate Blood Pressure 140/70 (mmHg) O2 Sat by Pulse 94 Oximetry Oxygen Devices in Use Now: None Appearance: Elderly female sitting up in bed, NAD Eyes: No Scleral Icterus Ears/Nose/Mouth/Throat: Mucous Membranes Moist Respiratory: Symmetrical Chest Expansion and Respiratory Effort, Clear to Auscultation Cardiovascular: NL Sounds; No Murmurs; No JVD, No Edema, - - irregularly irregular, controlled rate Abdominal: NL Sounds; No Tenderness; No Distention Extremities: No Clubbing, Cyanosis Skin: No Rash or Ulcers, No Nodules or Sclerosis, - - hip incision not inspected by me Neurological: Alert and Oriented x 3 Result Diagrams: 07/04/17 04:43 07/04/17 04:43 Additional Lab and Data: Lab Results 07/02/17 07/02/17 07/02/17 Range/Units 14:33 14:33 14:33 WBC 5.4 (3.5-10.8) 10^3/ul RBC 4.24 (4.0-5.4) 10^6/ul Hgb 13.3 (12.0-16.0) g/dl Hct 39 (35-47) % MCV 93 (80-97) fL MCH 31 (27-31) pg MCHC 34 (31-36) g/dl RDW 15 (10.5-15) % Plt Count 136 L (150-450) 10^3/ul MPV 9 (7.4-10.4) um3 Neut % (Auto) 55.6 (38-83) % Lymph % (Auto) 30.0 (25-47) % [place] % (Auto) 12.2 H (1-9) % Eos % (Auto) 1.8 (0-6) % Baso % (Auto) 0.4 (0-2) % Absolute Neuts (auto) 3.0 (1.5-7.7) 10^3/ul Absolute Lymphs (auto) 1.6 (1.0-4.8) 10^3/ul Absolute Monos (auto) 0.7 (0-0.8) 10^3/ul Absolute Eos (auto) 0.1 (0-0.6) 10^3/ul Absolute Basos (auto) 0 (0-0.2) 10^3/ul Absolute Nucleated RBC 0.01 10^3/ul Nucleated RBC % 0.1 APTT 27.9 (26.0-36.3) seconds Sodium 137 (133-145) mmol/L Potassium 3.4 L (3.5-5.0) mmol/L Chloride 101 (101-111) mmol/L Carbon Dioxide 29 (22-32) mmol/L Anion Gap 7 (2-11) mmol/L BUN 28 H (6-24) mg/dL Creatinine 1.45 H (0.51-0.95) mg/dL Est GFR ( Amer) 44.2 (>60) Est GFR (Non-Af Amer) 34.4 (>60) BUN/Creatinine Ratio 19.3 (8-20) Glucose 104 H (70-100) mg/dL Calcium 9.5 (8.6-10.3) mg/dL Total Bilirubin 1.20 H (0.2-1.0) mg/dL AST 25 (13-39) U/L ALT 14 (7-52) U/L Alkaline Phosphatase 85 (34-104) U/L Total Creatine Kinase 41 (10-223) U/L Total Protein 7.8 (6.4-8.9) g/dL Albumin 4.0 (3.2-5.2) g/dL Globulin 3.8 (2-4) g/dL Albumin/Globulin Ratio 1.1 (1-3) Assess/Plan/Problems-Billing Ms Montaño is an 86 yo F who has a h/o CAD, HTN and afib who presented to the ER with c/o R hip pain s/p mechanical fall. - Patient Problems (1) Closed right hip fracture Current Visit: Yes Status: Acute Code(s): S72.001A - FRACTURE OF UNSP PART OF NECK OF RIGHT FEMUR, INIT SNOMED Code(s): 389277429 Comment: The patient is s/p R hemiarthroplasty. PT to work with the patient this AM. Management per orthopedics. ? PMRU for STR. (2) HTN (hypertension) Current Visit: Yes Status: Chronic Code(s): I10 - ESSENTIAL (PRIMARY) HYPERTENSION SNOMED Code(s): 09467843 Comment: The patient's SBP is moderately elevated in the 150-170 range. She has not had a dose of hydralazine since PM 07/02/17. Will discuss with pt about starting low dose antihypertensive. (3) Atrial fibrillation Current Visit: Yes Status: Chronic Code(s): I48.91 - UNSPECIFIED ATRIAL FIBRILLATION SNOMED Code(s): 13178870 Comment: The patient is rate controlled on no medications. She is not on any anticoagulants. (4) CAD (coronary artery disease) Current Visit: Yes Status: Chronic Code(s): I25.10 - ATHSCL HEART DISEASE OF [place] CORONARY ARTERY W/O ANG PCTRS SNOMED Code(s): 56365025 Comment: No active issues at this time. Continue ASA 81mg daily. (5) Hypothyroidism Current Visit: Yes Status: Acute Code(s): E03.9 - HYPOTHYROIDISM, UNSPECIFIED SNOMED Code(s): 86224953 Comment: Continue compounded levothyroxine and liothyronine. (6) DVT prophylaxis Current Visit: Yes Status: Acute Code(s): OSJ5612 - SNOMED Code(s): 297913064 Comment: SCDs (7) Patient is full code Current Visit: Yes Status: Acute Onset Date: 08/06/15 Code(s): Z78.9 - OTHER SPECIFIED HEALTH STATUS SNOMED Code(s): 234441451
[2017-07-04] MEDS: COENZYME Q10 100 MG PO SCH (10:20)
[2017-07-04] MEDS: cefTRIAXone VIAL(*) 1,000 MG in NS 0.9% 50 ML* 50 ML IVPB SCH (14:51)
[2017-07-04] MEDS ORDERED: NS 0.9% 1000 ML* 1,000 ML IV ONE (15:30)
[2017-07-05] MEDS: NS 0.9% 1000 ML* 1,000 ML IV SCH ×3 (02:22→18:25)
[2017-07-05] MEDS: Acetaminophen TAB* 325 MG PO PRN (04:23)
[2017-07-05] MEDS: LIOTHYRONINE PO SCH (05:28)
[2017-07-05] MEDS: LEVOTHYROXINE PO SCH (05:28)
[2017-07-05 07:03] LABS: Hematocrit 29 % (35-47); Hemoglobin 9.7 g/dl (12.0-16.0); Mean Corpuscular HGB Conc 34 g/dl (31-36); Mean Corpuscular Hemoglobin 31 pg (27-31); Mean Corpuscular Volume 93 fL (80-97); Mean Platelet Volume 9 um3 (7.4-10.4); Red Blood Count 3.09 10^6/ul (4.0-5.4); Red Cell Distribution Width 15 % (10.5-15); White Blood Count 9.7 10^3/ul (3.5-10.8)
[2017-07-05 07:16] LABS: BUN/Creatinine Ratio 26.1 (8-20); Calcium 7.9 mg/dL (8.6-10.3); EGFR African American 57.8 (>60); Potassium 3.5 mmol/L (3.5-5.0)
[2017-07-05] MEDS: oxyCODONE TAB* 5 MG TAB PO PRN (08:40)
[2017-07-05] MEDS: Aspirin EC Low Dose* 81 MG TAB.EC PO SCH (08:41)
[2017-07-05] MEDS: OMEGA Q PLUS PO SCH (08:41)
--- NOTE | 2017-07-05 10:17 | PN ---
Subjective Date of Service: 07/05/17 Interval History: Pt is feeling poorly this AM. She states she is having a lot of pain in her R hip. She feels uncomfortable on her back. No SOB or CP. Nursing notes the patient's speech is slower and slightly slurred this AM. Objective Active Medications: Acetaminophen (Tylenol Tab*) 975 mg PO Q6HR [facility] Aspirin (Aspirin Ec Low Dose*) 81 mg PO DAILY [facility] Last Admin: 07/05/17 08:41 Dose: 81 mg Hydralazine HCl (Apresoline Iv*) 5 mg IV SLOW PU Q6H PRN PRN Reason: SBP>170 Last Admin: 07/02/17 23:44 Dose: 5 mg Hydromorphone HCl (Dilaudid Iv*) 0.5 mg IV SLOW PU Q4H PRN PRN Reason: PAIN Last Admin: 07/03/17 12:52 Dose: 0.5 mg Ceftriaxone Sodium 1,000 mg/ (Sodium Chloride) 50 mls @ 200 mls/hr IVPB Q24H [facility] Last Admin: 07/04/17 14:51 Dose: 200 mls/hr Sodium Chloride (Ns 0.9% 1000 Ml*) 1,000 mls @ 125 mls/hr IV PER RATE [facility] Last Admin: 07/05/17 02:22 Dose: 125 mls/hr Lorazepam (Ativan Inj*) 0.5 mg IV PUSH Q6H PRN PRN Reason: ANXIETY Pto: Levothyroxine 49.25 Mcg- Liothyronine 0.75 Mcg Cap 1 dose PO DAILY@0600 [facility] Last Admin: 07/05/17 05:28 Dose: 1 dose Pto:Non Formulary (Med [place] Q Plus) 2 dose PO DAILY [facility] Last Admin: 07/05/17 08:41 Dose: 2 dose Oxycodone HCl (Roxycodone Tab*) 5 mg PO Q4H PRN PRN Reason: PAIN Last Admin: 07/05/17 08:40 Dose: 5 mg Vital Signs 07/04/17 07/04/17 07/04/17 11:34 11:45 15:32 Temperature 99.2 F 97.9 F Pulse Rate 99 87 Respiratory 13 16 Rate Blood Pressure 103/60 115/54 (mmHg) O2 Sat by Pulse 93 95 Oximetry 07/04/17 07/04/17 07/04/17 16:00 21:15 23:21 Temperature 97.3 F 97.6 F Pulse Rate 73 81 Respiratory 18 16 Rate Blood Pressure 125/65 128/65 (mmHg) O2 Sat by Pulse 95 96 96 Oximetry 07/04/17 07/05/17 07/05/17 23:44 03:28 07:39 Temperature 97.9 F 97.9 F Pulse Rate 92 95 Respiratory 14 14 16 Rate Blood Pressure 157/78 145/66 (mmHg) O2 Sat by Pulse 97 95 Oximetry 07/05/17 07/05/17 07/05/17 08:14 08:25 08:40 Temperature Pulse Rate Respiratory 16 16 18 Rate Blood Pressure (mmHg) O2 Sat by Pulse Oximetry Oxygen Devices in Use Now: None Appearance: Elderly female who appears tired and wiped out lying in bed, NAD Eyes: No Scleral Icterus Ears/Nose/Mouth/Throat: Mucous Membranes Moist Respiratory: Symmetrical Chest Expansion and Respiratory Effort, Clear to Auscultation - anteriorly Cardiovascular: NL Sounds; No Murmurs; No JVD, No Edema, - - irregularly irregular Abdominal: NL Sounds; No Tenderness; No Distention Extremities: No Clubbing, Cyanosis, - - L hip dressing clean and dry Skin: No Rash or Ulcers, No Nodules or Sclerosis Neurological: Alert and Oriented x 3, - - pt is tearful and weeps some, speech is minimally slurred and there is perhaps a minimal L facial droop- not significantly changed from prior. Result Diagrams: 07/05/17 06:44 07/05/17 06:44 Additional Lab and Data: Lab Results 07/02/17 07/02/17 07/02/17 Range/Units 14:33 14:33 14:33 WBC 5.4 (3.5-10.8) 10^3/ul RBC 4.24 (4.0-5.4) 10^6/ul Hgb 13.3 (12.0-16.0) g/dl Hct 39 (35-47) % MCV 93 (80-97) fL MCH 31 (27-31) pg MCHC 34 (31-36) g/dl RDW 15 (10.5-15) % Plt Count 136 L (150-450) 10^3/ul MPV 9 (7.4-10.4) um3 Neut % (Auto) 55.6 (38-83) % Lymph % (Auto) 30.0 (25-47) % [place] % (Auto) 12.2 H (1-9) % Eos % (Auto) 1.8 (0-6) % Baso % (Auto) 0.4 (0-2) % Absolute Neuts (auto) 3.0 (1.5-7.7) 10^3/ul Absolute Lymphs (auto) 1.6 (1.0-4.8) 10^3/ul Absolute Monos (auto) 0.7 (0-0.8) 10^3/ul Absolute Eos (auto) 0.1 (0-0.6) 10^3/ul Absolute Basos (auto) 0 (0-0.2) 10^3/ul Absolute Nucleated RBC 0.01 10^3/ul Nucleated RBC % 0.1 APTT 27.9 (26.0-36.3) seconds Sodium 137 (133-145) mmol/L Potassium 3.4 L (3.5-5.0) mmol/L Chloride 101 (101-111) mmol/L Carbon Dioxide 29 (22-32) mmol/L Anion Gap 7 (2-11) mmol/L BUN 28 H (6-24) mg/dL Creatinine 1.45 H (0.51-0.95) mg/dL Est GFR ( Amer) 44.2 (>60) Est GFR (Non-Af Amer) 34.4 (>60) BUN/Creatinine Ratio 19.3 (8-20) Glucose 104 H (70-100) mg/dL Calcium 9.5 (8.6-10.3) mg/dL Total Bilirubin 1.20 H (0.2-1.0) mg/dL AST 25 (13-39) U/L ALT 14 (7-52) U/L Alkaline Phosphatase 85 (34-104) U/L Total Creatine Kinase 41 (10-223) U/L Total Protein 7.8 (6.4-8.9) g/dL Albumin 4.0 (3.2-5.2) g/dL Globulin 3.8 (2-4) g/dL Albumin/Globulin Ratio 1.1 (1-3) Microbiology and Other Data: Microbiology 07/03/17 07:50 Urine Culture - Final Urine Escherichia Coli Assess/Plan/Problems-Billing Ms Montaño is an 86 yo F who has a h/o CAD, HTN and afib who presented to the ER with c/o R hip pain s/p mechanical fall. - Patient Problems (1) Slurred speech Current Visit: Yes Status: Acute Code(s): R47.81 - SLURRED SPEECH SNOMED Code(s): 157698679 Comment: The patient had mild slurred speech this AM. She appeared very tired to me. She had not had any narcotics recently. Will recheck later this AM for improvement. (2) Closed right hip fracture Current Visit: Yes Status: Acute Code(s): S72.001A - FRACTURE OF UNSP PART OF NECK OF RIGHT FEMUR, INIT SNOMED Code(s): 283767549 Comment: The patient is s/p R hemiarthroplasty. Continue PT/OT. ? PMRU vs CHAVEZ. (3) HTN (hypertension) Current Visit: Yes Status: Chronic Code(s): I10 - ESSENTIAL (PRIMARY) HYPERTENSION SNOMED Code(s): 83722966 Comment: BP is under better control despite not being on any medication. Will continue to monitor. (4) Atrial fibrillation Current Visit: Yes Status: Chronic Code(s): I48.91 - UNSPECIFIED ATRIAL FIBRILLATION SNOMED Code(s): 96862018 Comment: The patient is rate controlled on no medications. She is not on any anticoagulants. Continue ASA. (5) CAD (coronary artery disease) Current Visit: Yes Status: Chronic Code(s): I25.10 - ATHSCL HEART DISEASE OF [place] CORONARY ARTERY W/O ANG PCTRS SNOMED Code(s): 29314871 Comment: No active issues at this time. Continue ASA 81mg daily. (6) Hypothyroidism Current Visit: Yes Status: Acute Code(s): E03.9 - HYPOTHYROIDISM, UNSPECIFIED SNOMED Code(s): 11728914 Comment: Continue compounded levothyroxine and liothyronine. (7) DVT prophylaxis Current Visit: Yes Status: Acute Code(s): KGB3028 - SNOMED Code(s): 693070439 Comment: SCDs-will discuss pharmacologic anticoagulation with Dr. Faith. (8) Patient is full code Current Visit: Yes Status: Acute Onset Date: 08/06/15 Code(s): Z78.9 - OTHER SPECIFIED HEALTH STATUS SNOMED Code(s): 747498197
[2017-07-05] MEDS ORDERED: Senna TAB PO PRN (10:46)
[2017-07-05] MEDS: Acetaminophen TAB* 325 MG PO SCH ×2 (12:07→18:05)
[2017-07-05] MEDS: Polyethylene Glycol 3350* 17 GM PACKET PO SCH (12:07)
[2017-07-05] MEDS: cefTRIAXone VIAL(*) 1,000 MG in NS 0.9% 50 ML* 50 ML IVPB SCH (14:30)
[2017-07-05] MEDS: Docusate CAP* 100 MG PO SCH (20:36)
[2017-07-06] MEDS: Acetaminophen TAB* 325 MG PO SCH ×4 (00:04→18:18)
[2017-07-06] MEDS: NS 0.9% 1000 ML* 1,000 ML IV SCH (02:37)
[2017-07-06] MEDS: LIOTHYRONINE PO SCH (06:27)
[2017-07-06] MEDS: LEVOTHYROXINE PO SCH (06:27)
[2017-07-06] MEDS: Cephalexin CAP* 500 MG PO SCH ×5 (06:27→20:46)
[2017-07-06] MEDS: Aspirin EC Low Dose* 81 MG TAB.EC PO SCH (07:40)
[2017-07-06] MEDS: Rivaroxaban TAB(*) 10 MG PO SCH ×2 (07:41→08:26)
[2017-07-06] MEDS: Docusate CAP* 100 MG PO SCH ×2 (07:41→20:47)
[2017-07-06] MEDS: Polyethylene Glycol 3350* 17 GM PACKET PO SCH (07:41)
[2017-07-06] MEDS: hydrALAZINE IV* 20 MG/ML VIAL IV SLOW PU PRN (07:42)
[2017-07-06] MEDS: OMEGA Q PLUS PO SCH (07:42)
[2017-07-06] MEDS ORDERED: Rivaroxaban TAB(*) 10 MG PO SCH (09:00)
[2017-07-06] MEDS ORDERED: Enoxaparin(*) 40 MG/0.4 ML SYR SUBCUT SCH (11:00)
--- NOTE | 2017-07-06 11:04 | PN ---
Subjective Date of Service: 07/06/17 Interval History: Pt states she is feeling ok. She denies pain in her hip. She states she will absolutely will not take the xarelto. When I stated that was fine and we could use lovenox she became tearful and demanded to know how the lovenox works. Objective Active Medications: Acetaminophen (Tylenol Tab*) 975 mg PO Q6HR [facility] Last Admin: 07/06/17 06:27 Dose: 975 mg Aspirin (Aspirin Ec Low Dose*) 81 mg PO DAILY [facility] Last Admin: 07/06/17 07:40 Dose: 81 mg Cephalexin HCl (Keflex Cap*) 500 mg PO QID [facility] Last Admin: 07/06/17 07:41 Dose: 500 mg Docusate Sodium (Colace Cap*) 100 mg PO BID [facility] Last Admin: 07/06/17 07:41 Dose: 100 mg Enoxaparin Sodium (Lovenox(*)) 40 mg SUBCUT Q24H [facility] Hydralazine HCl (Apresoline Iv*) 5 mg IV SLOW PU Q6H PRN PRN Reason: SBP>170 Last Admin: 07/06/17 07:42 Dose: 5 mg Lorazepam (Ativan Inj*) 0.5 mg IV PUSH Q6H PRN PRN Reason: ANXIETY Last Admin: 07/05/17 20:57 Dose: 0.5 mg Pto: Levothyroxine 49.25 Mcg- Liothyronine 0.75 Mcg Cap 1 dose PO DAILY@0600 [facility] Last Admin: 07/06/17 06:27 Dose: 1 dose Pto:Non Formulary (Med [place] Q Plus) 2 dose PO DAILY [facility] Last Admin: 07/06/17 07:42 Dose: 2 dose Oxycodone HCl (Roxycodone Tab*) 5 mg PO Q4H PRN PRN Reason: PAIN Last Admin: 07/05/17 08:40 Dose: 5 mg Polyethylene Glycol/Electrolytes (Miralax*) 17 gm PO DAILY [facility] Last Admin: 07/06/17 07:41 Dose: 17 gm Senna (Senokot Tab*) 1 tab PO BEDTIME PRN PRN Reason: CONSTIPATION Vital Signs 07/05/17 07/05/17 07/05/17 11:45 15:13 16:00 Temperature 98.9 F 97.6 F Pulse Rate 86 77 Respiratory 16 15 Rate Blood Pressure 134/65 147/54 (mmHg) O2 Sat by Pulse 98 97 97 Oximetry 07/05/17 07/05/17 07/05/17 20:35 20:57 21:11 Temperature 97.9 F Pulse Rate 129 Respiratory 18 18 18 Rate Blood Pressure 143/78 (mmHg) O2 Sat by Pulse 97 Oximetry 07/05/17 07/05/17 07/06/17 21:57 23:58 03:22 Temperature 98.0 F 98.0 F Pulse Rate 76 77 Respiratory 20 16 16 Rate Blood Pressure 166/78 162/87 (mmHg) O2 Sat by Pulse 99 99 Oximetry 07/06/17 07:16 Temperature 97.6 F Pulse Rate 79 Respiratory 11 Rate Blood Pressure 188/109 (mmHg) O2 Sat by Pulse 98 Oximetry Oxygen Devices in Use Now: None Appearance: Elderly female sitting up in bed, NAD Eyes: No Scleral Icterus Ears/Nose/Mouth/Throat: Mucous Membranes Moist Respiratory: Symmetrical Chest Expansion and Respiratory Effort, Clear to Auscultation Cardiovascular: NL Sounds; No Murmurs; No JVD, No Edema, - - irregularly irregular Abdominal: NL Sounds; No Tenderness; No Distention Extremities: No Clubbing, Cyanosis Skin: No Nodules or Sclerosis, - - R hip dressing clean and dry Neurological: - - seems slightly confused, very upset with the thought of needing an anticoagulant for DVT prophylaxis Result Diagrams: 07/05/17 06:44 07/05/17 06:44 Additional Lab and Data: Lab Results 07/02/17 07/02/17 07/02/17 Range/Units 14:33 14:33 14:33 WBC 5.4 (3.5-10.8) 10^3/ul RBC 4.24 (4.0-5.4) 10^6/ul Hgb 13.3 (12.0-16.0) g/dl Hct 39 (35-47) % MCV 93 (80-97) fL MCH 31 (27-31) pg MCHC 34 (31-36) g/dl RDW 15 (10.5-15) % Plt Count 136 L (150-450) 10^3/ul MPV 9 (7.4-10.4) um3 Neut % (Auto) 55.6 (38-83) % Lymph % (Auto) 30.0 (25-47) % [place] % (Auto) 12.2 H (1-9) % Eos % (Auto) 1.8 (0-6) % Baso % (Auto) 0.4 (0-2) % Absolute Neuts (auto) 3.0 (1.5-7.7) 10^3/ul Absolute Lymphs (auto) 1.6 (1.0-4.8) 10^3/ul Absolute Monos (auto) 0.7 (0-0.8) 10^3/ul Absolute Eos (auto) 0.1 (0-0.6) 10^3/ul Absolute Basos (auto) 0 (0-0.2) 10^3/ul Absolute Nucleated RBC 0.01 10^3/ul Nucleated RBC % 0.1 APTT 27.9 (26.0-36.3) seconds Sodium 137 (133-145) mmol/L Potassium 3.4 L (3.5-5.0) mmol/L Chloride 101 (101-111) mmol/L Carbon Dioxide 29 (22-32) mmol/L Anion Gap 7 (2-11) mmol/L BUN 28 H (6-24) mg/dL Creatinine 1.45 H (0.51-0.95) mg/dL Est GFR ( Amer) 44.2 (>60) Est GFR (Non-Af Amer) 34.4 (>60) BUN/Creatinine Ratio 19.3 (8-20) Glucose 104 H (70-100) mg/dL Calcium 9.5 (8.6-10.3) mg/dL Total Bilirubin 1.20 H (0.2-1.0) mg/dL AST 25 (13-39) U/L ALT 14 (7-52) U/L Alkaline Phosphatase 85 (34-104) U/L Total Creatine Kinase 41 (10-223) U/L Total Protein 7.8 (6.4-8.9) g/dL Albumin 4.0 (3.2-5.2) g/dL Globulin 3.8 (2-4) g/dL Albumin/Globulin Ratio 1.1 (1-3) Microbiology and Other Data: Microbiology 07/03/17 07:50 Urine Culture - Final Urine Escherichia Coli Assess/Plan/Problems-Billing Ms Montaño is an 86 yo F who has a h/o CAD, HTN and afib who presented to the ER with c/o R hip pain s/p mechanical fall. - Patient Problems (1) Slurred speech Current Visit: Yes Status: Acute Code(s): R47.81 - SLURRED SPEECH SNOMED Code(s): 241784927 Comment: Pt appears the same today as yesterday. She still seems drowsy and not as bright as she did before surgery. (2) Closed right hip fracture Current Visit: Yes Status: Acute Code(s): S72.001A - FRACTURE OF UNSP PART OF NECK OF RIGHT FEMUR, INIT SNOMED Code(s): 741961208 Comment: The patient is s/p R hemiarthroplasty-today is POD#3. Continue PT/ OT. ? PMRU vs CHAVEZ. (3) HTN (hypertension) Current Visit: Yes Status: Chronic Code(s): I10 - ESSENTIAL (PRIMARY) HYPERTENSION SNOMED Code(s): 86318696 Comment: BP is uncontrolled again today. Will try to start hydralazine but I am suspicious that she will refuse as she believes that she has a reaction to blood pressure medications. (4) Atrial fibrillation Current Visit: Yes Status: Chronic Code(s): I48.91 - UNSPECIFIED ATRIAL FIBRILLATION SNOMED Code(s): 65244748 Comment: The patient is rate controlled on no medications. She is not on any anticoagulants. Continue ASA. (5) CAD (coronary artery disease) Current Visit: Yes Status: Chronic Code(s): I25.10 - ATHSCL HEART DISEASE OF [place] CORONARY ARTERY W/O ANG PCTRS SNOMED Code(s): 49042052 Comment: No active issues at this time. Continue ASA 81mg daily. (6) Hypothyroidism Current Visit: Yes Status: Acute Code(s): E03.9 - HYPOTHYROIDISM, UNSPECIFIED SNOMED Code(s): 72710636 Comment: Continue compounded levothyroxine and liothyronine. (7) DVT prophylaxis Current Visit: Yes Status: Acute Code(s): BFD5015 - SNOMED Code(s): 244121340 Comment: Start lovenox as pt refuses xarelto. She will need lovenox for 2 weeks. (8) Patient is full code Current Visit: Yes Status: Acute Onset Date: 08/06/15 Code(s): Z78.9 - OTHER SPECIFIED HEALTH STATUS SNOMED Code(s): 775906702
[2017-07-06] MEDS ORDERED: Naproxen TAB* 250 MG PO PRN (18:18)
[2017-07-07] MEDS: Acetaminophen TAB* 325 MG PO SCH ×2 (00:08→06:17)
[2017-07-07 05:29] LABS: Hematocrit 33 % (35-47); Hemoglobin 10.9 g/dl (12.0-16.0); Mean Corpuscular HGB Conc 33 g/dl (31-36); Mean Corpuscular Hemoglobin 31 pg (27-31); Mean Corpuscular Volume 94 fL (80-97); Mean Platelet Volume 9 um3 (7.4-10.4); Red Blood Count 3.47 10^6/ul (4.0-5.4); Red Cell Distribution Width 16 % (10.5-15); White Blood Count 8.3 10^3/ul (3.5-10.8)
[2017-07-07 05:43] LABS: BUN/Creatinine Ratio 20.4 (8-20); Calcium 8.6 mg/dL (8.6-10.3); EGFR African American 69.5 (>60); EGFR Non-African American 54.1 (>60); Potassium 3.5 mmol/L (3.5-5.0)
[2017-07-07] MEDS: LEVOTHYROXINE PO SCH (06:18)
[2017-07-07] MEDS: LIOTHYRONINE PO SCH (06:18)
[2017-07-07] MEDS: hydrALAZINE IV* 20 MG/ML VIAL IV SLOW PU PRN (07:42)
[2017-07-07] MEDS: Cephalexin CAP* 500 MG PO SCH (07:47)
[2017-07-07] MEDS: OMEGA Q PLUS PO SCH (07:48)
[2017-07-07] MEDS: Docusate CAP* 100 MG PO SCH (07:49)
[2017-07-07] MEDS: Polyethylene Glycol 3350* 17 GM PACKET PO SCH (07:49)
[2017-07-07] MEDS: Aspirin EC Low Dose* 81 MG TAB.EC PO SCH (07:51)
--- NOTE | 2017-07-07 08:46 | PN ---
Subjective Date of Service: 07/07/17 Interval History: Pt is discouraged about her whole situation. She denies any pain in her hip this AM. She states she still has not had a BM. She c/o burning with urination. Objective Active Medications: Acetaminophen (Tylenol Tab*) 975 mg PO Q6HR [facility] Last Admin: 07/07/17 06:17 Dose: 975 mg Aspirin (Aspirin Ec Low Dose*) 81 mg PO DAILY [facility] Last Admin: 07/07/17 07:51 Dose: Not Given Cephalexin HCl (Keflex Cap*) 500 mg PO QID [facility] Last Admin: 07/07/17 07:47 Dose: 500 mg Docusate Sodium (Colace Cap*) 100 mg PO BID [facility] Last Admin: 07/07/17 07:49 Dose: 100 mg Enoxaparin Sodium (Lovenox(*)) 40 mg SUBCUT Q24H [facility] Last Admin: 07/06/17 12:05 Dose: 40 mg Hydralazine HCl (Apresoline Iv*) 5 mg IV SLOW PU Q6H PRN PRN Reason: SBP>170 Last Admin: 07/07/17 07:42 Dose: 5 mg Lorazepam (Ativan Inj*) 0.5 mg IV PUSH Q6H PRN PRN Reason: ANXIETY Last Admin: 07/05/17 20:57 Dose: 0.5 mg Naproxen (Naprosyn Tab*) 250 mg PO Q12H PRN PRN Reason: PAIN Pto: Levothyroxine 49.25 Mcg- Liothyronine 0.75 Mcg Cap 1 dose PO DAILY@0600 [facility] Last Admin: 07/07/17 06:18 Dose: 1 dose Pto:Non Formulary (Med [place] Q Plus) 2 dose PO DAILY [facility] Last Admin: 07/07/17 07:48 Dose: 1 dose Oxycodone HCl (Roxycodone Tab*) 5 mg PO Q4H PRN PRN Reason: PAIN Last Admin: 07/05/17 08:40 Dose: 5 mg Polyethylene Glycol/Electrolytes (Miralax*) 17 gm PO DAILY [facility] Last Admin: 07/07/17 07:49 Dose: 17 gm Senna (Senokot Tab*) 1 tab PO BEDTIME PRN PRN Reason: CONSTIPATION Vital Signs 07/06/17 07/06/17 07/06/17 11:27 15:34 16:49 Temperature 97.4 F 97.6 F Pulse Rate 79 68 Respiratory 21 16 16 Rate Blood Pressure 179/95 145/74 (mmHg) O2 Sat by Pulse 100 97 Oximetry 07/06/17 07/06/17 07/06/17 19:17 20:00 20:01 Temperature 97.4 F Pulse Rate 89 Respiratory 18 16 Rate Blood Pressure 172/83 (mmHg) O2 Sat by Pulse 98 97 Oximetry 07/06/17 07/07/17 07/07/17 23:59 04:46 05:52 Temperature 97.8 F 97.5 F Pulse Rate 85 101 Respiratory 17 14 Rate Blood Pressure 179/84 144/66 (mmHg) O2 Sat by Pulse 98 98 Oximetry 07/07/17 07/07/17 07:23 07:55 Temperature 97.7 F Pulse Rate 106 Respiratory 17 17 Rate Blood Pressure 190/96 (mmHg) O2 Sat by Pulse 98 98 Oximetry Oxygen Devices in Use Now: None Appearance: Elderly female sitting up in bed, NAD Eyes: No Scleral Icterus Ears/Nose/Mouth/Throat: Mucous Membranes Moist Respiratory: Symmetrical Chest Expansion and Respiratory Effort, Clear to Auscultation Cardiovascular: No Edema, - - irregularly irregular Abdominal: NL Sounds; No Tenderness; No Distention Extremities: No Clubbing, Cyanosis Skin: No Rash or Ulcers, No Nodules or Sclerosis Neurological: Alert and Oriented x 3 Result Diagrams: 07/07/17 05:09 07/07/17 05:08 Additional Lab and Data: Lab Results 07/02/17 07/02/17 07/02/17 Range/Units 14:33 14:33 14:33 WBC 5.4 (3.5-10.8) 10^3/ul RBC 4.24 (4.0-5.4) 10^6/ul Hgb 13.3 (12.0-16.0) g/dl Hct 39 (35-47) % MCV 93 (80-97) fL MCH 31 (27-31) pg MCHC 34 (31-36) g/dl RDW 15 (10.5-15) % Plt Count 136 L (150-450) 10^3/ul MPV 9 (7.4-10.4) um3 Neut % (Auto) 55.6 (38-83) % Lymph % (Auto) 30.0 (25-47) % [place] % (Auto) 12.2 H (1-9) % Eos % (Auto) 1.8 (0-6) % Baso % (Auto) 0.4 (0-2) % Absolute Neuts (auto) 3.0 (1.5-7.7) 10^3/ul Absolute Lymphs (auto) 1.6 (1.0-4.8) 10^3/ul Absolute Monos (auto) 0.7 (0-0.8) 10^3/ul Absolute Eos (auto) 0.1 (0-0.6) 10^3/ul Absolute Basos (auto) 0 (0-0.2) 10^3/ul Absolute Nucleated RBC 0.01 10^3/ul Nucleated RBC % 0.1 APTT 27.9 (26.0-36.3) seconds Sodium 137 (133-145) mmol/L Potassium 3.4 L (3.5-5.0) mmol/L Chloride 101 (101-111) mmol/L Carbon Dioxide 29 (22-32) mmol/L Anion Gap 7 (2-11) mmol/L BUN 28 H (6-24) mg/dL Creatinine 1.45 H (0.51-0.95) mg/dL Est GFR ( Amer) 44.2 (>60) Est GFR (Non-Af Amer) 34.4 (>60) BUN/Creatinine Ratio 19.3 (8-20) Glucose 104 H (70-100) mg/dL Calcium 9.5 (8.6-10.3) mg/dL Total Bilirubin 1.20 H (0.2-1.0) mg/dL AST 25 (13-39) U/L ALT 14 (7-52) U/L Alkaline Phosphatase 85 (34-104) U/L Total Creatine Kinase 41 (10-223) U/L Total Protein 7.8 (6.4-8.9) g/dL Albumin 4.0 (3.2-5.2) g/dL Globulin 3.8 (2-4) g/dL Albumin/Globulin Ratio 1.1 (1-3) Microbiology and Other Data: Microbiology 07/03/17 07:50 Urine Culture - Final Urine Escherichia Coli Assess/Plan/Problems-Billing Ms Montaño is an 86 yo F who has a h/o CAD, HTN and afib who presented to the ER with c/o R hip pain s/p mechanical fall. - Patient Problems (1) Slurred speech Current Visit: Yes Status: Acute Code(s): R47.81 - SLURRED SPEECH SNOMED Code(s): 086383636 Comment: Speech and mental state are improved this AM. (2) Closed right hip fracture Current Visit: Yes Status: Acute Code(s): S72.001A - FRACTURE OF UNSP PART OF NECK OF RIGHT FEMUR, INIT SNOMED Code(s): 641869585 Comment: The patient is s/p R hemiarthroplasty-today is POD#4. Continue PT/ OT. ? PMRU vs CHAVEZ. Pt is participating more this AM after having a loki conversation about the need for rehab and if she does not participate with PT she will need to go to [facility]. (3) HTN (hypertension) Current Visit: Yes Status: Chronic Code(s): I10 - ESSENTIAL (PRIMARY) HYPERTENSION SNOMED Code(s): 69486451 Comment: BP is uncontrolled again today. Will start HCTZ this AM-low dose. (4) Atrial fibrillation Current Visit: Yes Status: Chronic Code(s): I48.91 - UNSPECIFIED ATRIAL FIBRILLATION SNOMED Code(s): 99019425 Comment: The patient is rate controlled on no medications. She is not on any anticoagulants. Continue ASA. (5) CAD (coronary artery disease) Current Visit: Yes Status: Chronic Code(s): I25.10 - ATHSCL HEART DISEASE OF [place] CORONARY ARTERY W/O ANG PCTRS SNOMED Code(s): 54166517 Comment: No active issues at this time. Continue ASA 81mg daily. (6) Hypothyroidism Current Visit: Yes Status: Acute Code(s): E03.9 - HYPOTHYROIDISM, UNSPECIFIED SNOMED Code(s): 56866004 Comment: Continue compounded levothyroxine and liothyronine. (7) DVT prophylaxis Current Visit: Yes Status: Acute Code(s): PNH1635 - SNOMED Code(s): 580481457 Comment: Lovenox- per Dr. Faith if she is not up and moving much continue DVT prophylaxis for 3 weeks. (8) Patient is full code Current Visit: Yes Status: Acute Onset Date: 08/06/15 Code(s): Z78.9 - OTHER SPECIFIED HEALTH STATUS SNOMED Code(s): 843583622
[2017-07-07] MEDS ORDERED: Hydrochlorothiazide TAB* 25 MG PO SCH (09:00)
[2017-07-07 09:55] VITALS: BP 160/80
--- NOTE | 2017-07-08 03:54 | DS ---
CC: Dr. Holly; Dr. Faith * DISCHARGE SUMMARY: DATE OF ADMISSION: 07/02/17 DATE OF DISCHARGE: 07/07/17 PRIMARY CARE PROVIDER: Dr. Holly. PRINCIPAL DIAGNOSIS: Right completely displaced femoral neck fracture. SECONDARY DIAGNOSES: 1. Hypertension. 2. Coronary artery disease. 3. Atrial fibrillation. 4. Hypothyroidism. DISCHARGE MEDICATIONS: 1. Levothyroxine-liothyronine 49.25-0.75 mcg 1 tablet p.o. daily. 2. Aspirin 81 mg p.o. daily. 3. Lovenox 40 mg subcutaneous daily. 4. Lucinda Q Plus Resveratrol. HOSPITAL COURSE: Ms. Montaño is an 86-year-old female who is in excellent physical shape prior to this hospitalization who presents to the emergency room after having a mechanical fall and landing on her right hip. The patient was found to have a displaced femoral neck fracture. The patient was seen in consultation by Dr. Faith, who recommended a right hemiarthroplasty. The patient went to the operating room on 07/03/17 where she had her surgery completed. Post-operatively, the patient was noticeably tearful. She seemed very discouraged about her overall condition. In terms of her abilities with physical therapy, initially she was doing poorly. However, on the day of discharge, the patient markedly improved her abilities to participate with physical therapy and at that point, the patient was discharged to [facility] for rehab. The patient will be continued on Lovenox 40 mg subcutaneous daily x2 to 3 weeks. If the patient is active and moving about in a reasonable fashion, the duration of therapy can be 2 weeks; however, if she is slower to improve, then the duration should be [address] Faith. The patient will need to have the ciaran removed in approximately 10 days. She will need to see Dr. Faith in followup. On admission, the patient was noted to be markedly hypertensive. The patient states her blood pressure at baseline is usually in the 140s/70s range. Her blood pressures during her hospitalization, however, have been in the 170s to 190s range systolically. Because of this, she had p.r.n. hydralazine, which did work well. I started hydrochlorothiazide on the day of discharge and a decision will need to be made about what antihypertensives to continue if the patient claims to have reactions to numerous antihypertensive medications. In terms of the atrial fibrillation, the patient is not on any rate controlling agents. She is only on a baby aspirin at home and this can be continued. FOLLOWUP CONCERNS: The patient is being discharged to [facility] today on 07/07/17. ACTIVITY LEVEL: As tolerated. CONDITION ON DISCHARGE: Stable. TIME SPENT: 35 minutes were spent discharging this patient. [id number]/[facility] #: [id number] LAURY
== END 2017-07-07 10:00 | DRG 470 ==
LOC: ED 14:07 → SSU 15:54
PROVIDERS: ADMIT Hospitalist; ATTEND Hospitalist
PROC: 0SRR0JA Replacement of Right Hip Joint, Femoral Surface with Synthetic Substitute, Uncemented, Open Approach (ICD-10-PCS; principal; 2017-07-03 13:30)
DX: S72.011A Unspecified intracapsular fracture of right femur, initial encounter for closed fracture (principal); I48.91 Unspecified atrial fibrillation; I45.10 Unspecified right bundle-branch block; I10 Essential (primary) hypertension; W18.30XA Fall on same level, unspecified, initial encounter; E03.9 Hypothyroidism, unspecified; I25.10 Atherosclerotic heart disease of native coronary artery without angina pectoris; Z96.652 Presence of left artificial knee joint; Y92.007 Garden or yard of unspecified non-institutional (private) residence as the place of occurrence of the external cause; Z95.1 Presence of aortocoronary bypass graft; Z79.01 Long term (current) use of anticoagulants; Z86.73 Personal history of transient ischemic attack (TIA), and cerebral infarction without residual deficits; Z79.82 Long term (current) use of aspirin; Z79.899 Other long term (current) drug therapy; Z88.1 Allergy status to other antibiotic agents; Z88.5 Allergy status to narcotic agent; Z88.8 Allergy status to other drugs, medicaments and biological substances; Z83.3 Family history of diabetes mellitus; Z82.49 Family history of ischemic heart disease and other diseases of the circulatory system; Z87.891 Personal history of nicotine dependence
CPT/HCPCS: 36415; 71010; 80048; 80053; 81003; 81015; 82550; 85025; 85027; 85610; 85730; 86850; 86900; 86901; 86922; 87077; 87086; 87186; 93005; A9270-GY; C1776; J0330; J0360; J0696; J1170; J1650; J2060; J2405; J2704; J3010

== ENCOUNTER 2017-07-07 09:28 | Inpatient (IN) | payer MEDICARE ==
[2017-07-07] MEDS ORDERED: Magnesium Hydroxide LIQ* 30 ML UDC PO PRN (12:09)
[2017-07-07] MEDS ORDERED: Bisacodyl SUPP* 10 MG SUPP PR PRN (12:09)
[2017-07-07] MEDS: Cephalexin CAP* 500 MG PO SCH ×2 (14:38→21:16)
[2017-07-07] MEDS: Enoxaparin(*) 40 MG/0.4 ML SYR SUBCUT SCH (14:40)
[2017-07-07] MEDS: Docusate CAP* 100 MG PO SCH (21:16)
[2017-07-07] MEDS: Senna TAB PO SCH (21:17)
--- NOTE | 2017-07-07 22:38 | HP ---
ADMISSION HISTORY AND PHYSICAL: DATE OF ADMISSION: 07/07/17 REASON FOR ADMISSION: Right hip fracture. HISTORY OF PRESENT ILLNESS: Mely Montaño is an 86-year-old female. She has a medical history significant for atrial fibrillation. She did not take chronic anticoagulation, but was on an aspirin a day. Apparently, she was walking from her back deck to the yard when she fell. She was trying to go down 2 steps without railing and she moved to the first step and then went to the second but lost her balance and fell on to a slate surface. The patient was unable to get up. 911 was called and she was brought by ambulance to [facility]. She was unable to weight bear on her right leg. X-rays were taken in the emergency room. X-rays showed a fracture to the neck of the right femur with overriding of the fracture fragments. Orthopedics was consulted. She was admitted to the hospital service. Dr. Faith felt that she needed a right hip hemiarthroplasty. She was taken to the operating room on and underwent a hemiarthroplasty by Dr. Edgar Faith on that day. Postoperatively, the patient seemed to do well. She did have acute blood loss anemia. The patient did not have a transfusion, however. The patient was felt to have physical therapy and occupational therapy needs. She now is being admitted for inpatient rehab so that she might return to independent living. PAST MEDICAL HISTORY: Significant for the aforementioned atrial fibrillation. As mentioned, she was not on anti-coagulation prior to admission. She had been on Xarelto in the past, but had an episode of bright red blood per rectum last summer. 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 CURRENT MEDICATIONS: Include: 1. Aspirin. 2. Keflex. 3. Lovenox for DVT prophylaxis. 4. She is on thyroid replacement. 5. Bowel medications. ALLERGIES: The patient has allergies to LEVAQUIN, AMLODIPINE, ATORVASTATIN, MORPHINE and NIACIN. SOCIAL HISTORY: The patient does enjoy a drink in social settings. She does not smoke. She lives by herself in a one-story house. She is a recent . She is looking to sell her house since her . REVIEW OF SYSTEMS: The patient reports no current shortness of breath or chest pain. PHYSICAL EXAMINATION VITAL SIGNS: The patient's temperature is 98.4, blood pressure is 160/84, pulse 88, respirations 18. HEENT: Her extraocular movements are intact. Tongue is midline. NECK: Supple. LUNGS: Sound clear to auscultation bilaterally. HEART: Sounds are regular. S1, S2 are audible. ABDOMEN: Soft and nontender. EXTREMITIES: Her right hip has a wound, which is clean and dry. Trace edema is noted. NEUROLOGIC: The patient is awake, alert, oriented. Muscle strength is about 4+ /5 on the right arm. Right leg is about 3/5 secondary to pain. Her left side is about 5/5. FUNCTIONAL EXAM: The patient transfers with moderate amount of assistance. ASSESSMENT: Right hip fracture, status post hemiarthroplasty of the same. PLAN: Integrate her into a comprehensive and therapeutic rehab program with the following goals: 1. Physical Therapy will work with the patient. They are going to work on functional transfer training, ambulation training with a walker. 2. Occupational Therapy will see the patient and work on her activities of daily living including toileting and toilet transfers. 3. Lovenox for DVT prophylaxis. 4. Adequate analgesia. 5. Her bowels will be regulated. 6. technical services specialist will be closely involved to make sure any services and equipment that the patient requires are in place prior to discharge. 7. Family training as appropriate. 8. Home with appropriate services. ESTIMATED LENGTH OF STAY: 10 to 14 days. [id number]/CPS #: [id number] MTDD
[2017-07-08] MEDS: Cephalexin CAP* 500 MG PO SCH ×3 (04:53→21:17)
[2017-07-08] MEDS ORDERED: [UNRECOGNIZED DRUG - OTHER] PO SCH (09:00)
[2017-07-08] MEDS: Docusate CAP* 100 MG PO SCH ×2 (10:11→21:18)
[2017-07-08] MEDS: Aspirin Low Dose CHEW TAB* 81 MG PO SCH (10:12)
[2017-07-08] MEDS: [UNRECOGNIZED DRUG - OTHER] PO SCH (13:00)
[2017-07-08] MEDS: Enoxaparin(*) 40 MG/0.4 ML SYR SUBCUT SCH (13:10)
[2017-07-08] MEDS: Senna TAB PO SCH (21:18)
[2017-07-09] MEDS: [UNRECOGNIZED DRUG - OTHER] PO SCH (06:02)
[2017-07-09] MEDS: Cephalexin CAP* 500 MG PO SCH ×3 (06:02→20:24)
[2017-07-09] MEDS: Hydrochlorothiazide TAB* 25 MG PO SCH (08:15)
[2017-07-09] MEDS: Aspirin Low Dose CHEW TAB* 81 MG PO SCH (08:15)
[2017-07-09] MEDS: Docusate CAP* 100 MG PO SCH ×2 (08:16→20:28)
[2017-07-09] MEDS: [UNRECOGNIZED DRUG - OTHER] PO SCH (09:29)
[2017-07-09] MEDS: Enoxaparin(*) 40 MG/0.4 ML SYR SUBCUT SCH (13:09)
[2017-07-09] MEDS: Senna TAB PO SCH (20:28)
[2017-07-10] MEDS: Cephalexin CAP* 500 MG PO SCH ×3 (05:45→21:47)
[2017-07-10] MEDS: [UNRECOGNIZED DRUG - OTHER] PO SCH (05:47)
[2017-07-10 07:02] LABS: Hematocrit 27 % (35-47); Hemoglobin 9.1 g/dl (12.0-16.0); Mean Corpuscular HGB Conc 34 g/dl (31-36); Mean Corpuscular Hemoglobin 31 pg (27-31); Mean Corpuscular Volume 93 fL (80-97); Mean Platelet Volume 8 um3 (7.4-10.4); Red Blood Count 2.89 10^6/ul (4.0-5.4); Red Cell Distribution Width 15 % (10.5-15); White Blood Count 5.7 10^3/ul (3.5-10.8)
[2017-07-10 07:32] LABS: Albumin 2.6 g/dL (3.2-5.2); BUN/Creatinine Ratio 13.6 (8-20); Calcium 8.5 mg/dL (8.6-10.3); EGFR African American 65.7 (>60); EGFR Non-African American 51.1 (>60); Potassium 2.9 mmol/L (3.5-5.0); Total Protein 5.6 g/dL (6.4-8.9)
[2017-07-10] MEDS: [UNRECOGNIZED DRUG - OTHER] PO SCH (08:40)
[2017-07-10] MEDS: Aspirin Low Dose CHEW TAB* 81 MG PO SCH (08:41)
[2017-07-10] MEDS: Docusate CAP* 100 MG PO SCH ×2 (08:41→21:48)
[2017-07-10] MEDS: Hydrochlorothiazide TAB* 25 MG PO SCH (08:43)
--- NOTE | 2017-07-10 12:44 | PMRUTEAM ---
PMRU: Goals Current Status: Nursing: Current Status Skin Deviations [Right Hip] Incision Skin Deviations [Right Knee] Abrasion Skin Deviations [Right Elbow] Abrasion Skin Deviation Description [ CDI Right Hip] Physical Therapy: Current Status Bed Mobility Assistance Min Assist Transfer Moblility Assistance Supervision Transfer/Bed Mobility Rolling Walker Recommended Devices Ambulation Assistance Supervision Ambulation Assistive Devices Rolling Walker Number of Feet Patient 150' Ambulated Stairs Assistance Independent Stairs Recommended Devices Straight Cane,One Rail Number of Stairs Flight Occupational Therapy: Current Status Upper Body Dressing Independent Lower Body Dressing Mod Assist Bathing Min Assist Toileting Contact Guard Assist,Min Assist Toilet Transfer Contact Guard Assist Eating Independent Instrumental ADL Pt able to stand with walker in front of her, unsupported to complete clothing management with supervision. She was able to walk into bathroom for oral hygiene and grooming with supervision. She reports, not liking the walker and is anxious to get rid of it. She stood unsupported at this sink for greater than 5 minutes to complete oral care and grooming. Good balance and act km noted . Rec Therapy: Current Status Summary of Assessment and Pt. was open to conversation and answered Clinical Impression questions appropriately. Pt. was tearful at times throughout conversation, especially when discussing her losses and family. Pt. stated she was not enjoying life much d/t all the stress in the past year surrounding her 's . Pt . was open to continued leisure visits. Pt. declined organization development consultant consult. Treatment Goals Pt. will engage in leisure activities while on the unit. Treatment Plan Provide and encourage RT involvement. Provide emotional support as needed. Social Work: Current Status Discharge Plan return home with home care svs and support from friends and family Potential for Family Training TBD (pt's family live out of town) Anticipated Discharge Home Destination Discharge With home care svs and support from friends and family Goals: Physical Therapy: Updated Goals Transfer/Bed Mobility Rolling Walker Recommended Devices Occupational Therapy: Initial Goals Goals to be Completed in (Days 7-10 ) Upper Body Bathing Routine Independent Lower Body Bathing Routine Modified Independent with Upper Body Dressing Routine Independent Lower Body Dressing Routine Modified Independent with Toilet Hygeine and Clothing Modified Independent with Management Routine Toilet Transfer Routine Modified Independent with Step-In Shower Transfer Modified Independent with Routine Functional Transfers for ADL Modified Independent with Grooming Routine Independent Feeding Routine Independent Light Housekeeping Tasks Modified Independent with Nutrition: Goals Intervention Goals 1. improved and adequate po intake to support post-op healing and maintain stable wt 2. regulated bowel pattern without further c/o constipation (or diarrhea) Social Work: Goals Discharge Plan return home with home care svs and support from friends and family Potential for Family Training TBD (pt's family live out of town) Anticipated Discharge Home Destination Discharge With home care svs and support from friends and family Care Plan: Care Plan ADL's - Improve/Maintain Start: 07/08/17 12:37 Freq: QSHIFT Status: Active Target: Activity Type Activity Date Activity User E-Sign Co-Sign Detail Recorded Client Recorded Date Recorded By Document 07/08/17 12:37 [id number] [id number] 07/08/17 12:38 [id number] 07/08/17 12:37 PMRU Outcome: ADL's/ADL Transfers Orders/Interventions Occupational Therapy Evaluation & Treatment Communication Tool in Patient Room Device Yes Address Deficits Secondary To: Right hip hemiarthroplast y s/p fall Patient to receive OT 5x/wk for 60-120 Therex min/day Self Care Management Group Therapy UE/LE ADL's with Assist Yes: Asha ADL Transfers with Assist Yes: Asha Toileting: Transfers,Clothing Management Yes: Asha ,Hygeine w/Assist Light Kitchen/Laundry w/Assist Yes: Asha Progression Toward Outcome/Goals Progressing Outcome/Goals Met Pt participated well in OT evaluation, pleasant and cooperative. Will benefit from skilled OT to maximize independence and safety prior to d/c. Cardiovascular- Improve/Maintain Start: 07/09/17 04:06 Freq: QSHIFT Status: Active Target: Activity Type Activity Date Activity User E-Sign Co-Sign Detail Recorded Client Recorded Date Recorded By Document 07/10/17 11:05 [id number] 07/10/17 11:05 [id number] 07/10/17 11:05 PMRU Outcome: Cardiovascular Vital Signs q Shift for 48hrs Then BID Yes Daily Weight Ordered No Current Cardiovascular Outcome/Goal Maintain/ Achieve Baseline HR, BP , Perfusion Improve HR Within Prescribed Parameters Maintain/ Improve Perfusion Maintain/ Achieve Hemodynamic Stability Improve/ Maintain Cardiac Output Progression Toward Outcome/Goal Progressing Communication-Improve/Maintain Start: 07/09/17 04:06 Freq: QSHIFT Status: Active Target: Activity Type Activity Date Activity User E-Sign Co-Sign Detail Recorded Client Recorded Date Recorded By Document 07/10/17 01:35 [id number] 07/10/17 01:35 [id number] 07/10/17 01:35 PMRU Outcome: Communication/Cognitive Status Outcome/Goals Use Comm Tools/ Devices Makes Needs Known Effectively Progression Toward Outcomes/Goals Progressing DVT Prophylaxis- Improve/Maintain Start: 07/09/17 04:06 Freq: QSHIFT Status: Active Target: Activity Type Activity Date Activity User E-Sign Co-Sign Detail Recorded Client Recorded Date Recorded By Document 07/10/17 11:05 [id number] 07/10/17 11:05 [id number] 07/10/17 11:05 PMRU Outcome: DVT Prophylaxis Outcome/Goals Remains Free of DVT Free of complications from current DVT Complies with DVT Prophylaxis /Treatment Demonstrates Knowledge of DVT Prevention/ Treatment TEDS Stockings on Every AM, Off at HS Progression Toward Outcome/Goals Progressing /GI-Improve/Maintain Start: 07/09/17 04:06 Freq: QSHIFT Status: Active Target: Activity Type Activity Date Activity User E-Sign Co-Sign Detail Recorded Client Recorded Date Recorded By Document 07/10/17 11:05 [id number] 07/10/17 11:05 [id number] 07/10/17 11:05 PMRU Outcome: Genitourinary/ Gastrointestinal Genitourinary- Outcome/Goals Maintain/ Achieve Urinary Continence Maintain/ Achieve Adequate Urinary Output Remain Free of Hospital- Acquired UTI Gastrointestinal-Outcome/Goals Maintain/ Achieve Bowel Regularity in Accordance with Pt's Baseline Remain Free of Emesis Prevent Constipation Progression Toward Outcome/Goals - Progressing Progression Toward Outcome/Goals - GI Progressing Mobility- Improve/Maintain Start: 07/07/17 11:59 Freq: QSHIFT Status: Active Target: Activity Type Activity Date Activity User E-Sign Co-Sign Detail Recorded Client Recorded Date Recorded By Document 07/10/17 12:22 [id number] 07/10/17 12:23 [id number] 07/10/17 12:22 PMRU Outcome: Mobility Physical Therapy Evaluation and Yes Treatment Activity OOB with Assistance Yes WBAT Yes Device Yes Assistance Yes Patient to be seen 5x/wk for 60-120 min/ Therex day for: Mobility Training Gait Training Balance Other Therapy Comment Hip precautions RLE Outcome/Goals Maintain/ Achieve Baseline Mobility Status Improve Mobility Status Demonstrates Proper Use of Assistive Devices Free from Complications of Immobility Progression Toward Outcome/Goals Progressing Bed Mobility Yes: Independent Transfers Yes: Modified independent with RW Gait x ft Yes: Modified independent 150 ' with RW Up/Down Stairs Yes: Independent 12 steps 1 rail 1 cane With HEP Yes: Independent Medicine Note: Length of Stay: 4 days Anticipated Discharge Destination: Home Tentative Discharge Date: 07/14/17 Discharged to: Home
[2017-07-10] MEDS: Enoxaparin(*) 40 MG/0.4 ML SYR SUBCUT SCH (14:11)
[2017-07-10] MEDS: Potassium Chlor TAB* 20 MEQ TAB.ER PO SCH (21:47)
[2017-07-10] MEDS: Senna TAB PO SCH (21:48)
[2017-07-11] MEDS: Cephalexin CAP* 500 MG PO SCH ×3 (04:51→20:59)
[2017-07-11] MEDS: [UNRECOGNIZED DRUG - OTHER] PO SCH (04:52)
[2017-07-11] MEDS: Aspirin Low Dose CHEW TAB* 81 MG PO SCH (09:21)
[2017-07-11] MEDS: Potassium Chlor TAB* 20 MEQ TAB.ER PO SCH ×2 (09:21→20:59)
[2017-07-11] MEDS: Acetaminophen TAB* 325 MG PO PRN (09:21)
[2017-07-11] MEDS: Hydrochlorothiazide TAB* 25 MG PO SCH (09:21)
[2017-07-11] MEDS: [UNRECOGNIZED DRUG - OTHER] PO SCH (09:22)
[2017-07-11] MEDS: Docusate CAP* 100 MG PO SCH ×2 (09:29→20:58)
--- NOTE | 2017-07-11 12:40 | PMRUTEAM ---
PMRU: Goals Current Status: Nursing: Current Status Skin Deviations [Right Hip] Incision Skin Deviations [Right Knee] Abrasion Skin Deviations [Right Elbow] Abrasion Skin Deviation Description [ ciaran intact Right Hip] Bladder Current Status continent Bowel Current Status continent Nutrition Current Status adequate Physical Therapy: Current Status Bed Mobility Assistance Supervision Transfer Moblility Assistance Supervision Transfer/Bed Mobility Rolling Walker Recommended Devices Transfer Mobility Comment Pt. is able to transition from one surface to another S x 1 using 2 w/w. Ambulation Assistance Supervision Ambulation Assistive Devices Rolling Walker Number of Feet Patient 150' Ambulated Ambulation Comment Improving antalgic modified reciprocal type gait pattern Stairs Assistance Supervision,Contact Guard Assist Stairs Recommended Devices One Rail Number of Stairs 12 Occupational Therapy: Current Status Upper Body Dressing Supervision Lower Body Dressing Mod Assist Bathing Mod Assist Toileting Min Assist Toilet Transfer Min Assist Shower Transfer Progress TBA Eating Independent Instrumental ADL Pt able to stand with walker in front of her, unsupported to complete clothing management with supervision. She was able to walk into bathroom for oral hygiene and grooming with supervision. She reports, not liking the walker and is anxious to get rid of it. She stood unsupported at this sink for greater than 5 minutes to complete oral care and grooming. Good balance and act km noted . Rec Therapy: Current Status Summary of Assessment and RT assessment complete and pt. is aware of RT Clinical Impression services. Pt. was tearful at times throughout conversation, especially when discussing her losses and family. Pt. was open to continued leisure visits. Treatment Goals Pt. will engage in leisure activities while on the unit. Treatment Plan Provide and encourage RT involvement. Provide emotional support as needed. Social Work: Current Status Discharge Plan return home with home care svs and support from friends and family Potential for Family Training TBD (pt's family live out of town) Anticipated Discharge Home Destination Discharge With home care svs and support from friends and family Nutrition: Current Status Monitoring Pt ordered for a regular diet. Noted intake of 5- 100% of meals since admission, although >50% x past 3 days. Intake likely adequate x past several days, however will monitor. No N/V or difficulty chewing/swallowing noted. Per chart, pt w/o pressure related skin breakdown. Last BM documented 07/07; pt ordered for bowel regimen. Recommend adequate fluid intake. Labs reviewed : Na+: 132, K+: 2.9. Pt receiving repletion. Glucose: 109. Full nutrition assessment to follow per protocol. Goals: Physical Therapy: Initial Goals Bed Mobility Assistance Independent Transfer Mobility Assistance Independent Transfer/Bed Mobility Rolling Walker Recommended Devices Ambulation Independent Ambulation Recommended Devices Rolling Walker Ambulation Distance 150 Stairs Assistance Independent Stair Recommended Devices One Rail,Two Rails Number of Stairs 12 Physical Therapy: Updated Goals Bed Mobility Assistance Independent Transfer Mobility Assistance Independent Transfer/Bed Mobility Rolling Walker Recommended Devices Ambulation Assistance Independent Ambulation Assistive Devices Rolling Walker Ambulation Distance (ft) 150 Stairs Assistance Independent Stairs Recommended Devices One Rail Number of Stairs 12 Occupational Therapy: Initial Goals Goals to be Completed in (Days 7-10 ) Upper Body Bathing Routine Independent Lower Body Bathing Routine Modified Independent with Upper Body Dressing Routine Independent Lower Body Dressing Routine Modified Independent with Toilet Hygeine and Clothing Modified Independent with Management Routine Toilet Transfer Routine Modified Independent with Step-In Shower Transfer Modified Independent with Routine Functional Transfers for ADL Modified Independent with Grooming Routine Independent Feeding Routine Independent Light Housekeeping Tasks Modified Independent with Nutrition: Goals Intervention Goals 1. Adequate po intake to support post-op healing and maintain stable wt 2. Regulated bowel pattern without further c/o constipation (or diarrhea) 3. Electrolytes WNL s/p repletion Social Work: Goals Discharge Plan return home with home care svs and support from friends and family Potential for Family Training TBD (pt's family live out of town) Anticipated Discharge Home Destination Discharge With home care svs and support from friends and family Care Plan: Care Plan ADL's - Improve/Maintain Start: 07/08/17 12:37 Freq: QSHIFT Status: Active Target: Activity Type Activity Date Activity User E-Sign Co-Sign Detail Recorded Client Recorded Date Recorded By Document 07/08/17 12:37 [id number] 07/08/17 12:38 [id number] 07/08/17 12:37 PMRU Outcome: ADL's/ADL Transfers Orders/Interventions Occupational Therapy Evaluation & Treatment Communication Tool in Patient Room Device Yes Address Deficits Secondary To: Right hip hemiarthroplast y s/p fall Patient to receive OT 5x/wk for 60-120 Therex min/day Self Care Management Group Therapy UE/LE ADL's with Assist Yes: Asha ADL Transfers with Assist Yes: Asha Toileting: Transfers,Clothing Management Yes: Asha ,Hygeine w/Assist Light Kitchen/Laundry w/Assist Yes: Asha Progression Toward Outcome/Goals Progressing Outcome/Goals Met Pt participated well in OT evaluation, pleasant and cooperative. Will benefit from skilled OT to maximize independence and safety prior to d/c. Cardiovascular- Improve/Maintain Start: 07/09/17 04:06 Freq: QSHIFT Status: Active Target: Activity Type Activity Date Activity User E-Sign Co-Sign Detail Recorded Client Recorded Date Recorded By Document 07/10/17 20:00 [id number] 07/11/17 01:28 [id number] 07/10/17 20:00 PMRU Outcome: Cardiovascular Vital Signs q Shift for 48hrs Then BID Yes Daily Weight Ordered No Current Cardiovascular Outcome/Goal Maintain/ Achieve Baseline HR, BP , Perfusion Improve HR Within Prescribed Parameters Maintain/ Improve Perfusion Maintain/ Achieve Hemodynamic Stability Improve/ Maintain Cardiac Output Progression Toward Outcome/Goal Progressing Communication-Improve/Maintain Start: 07/09/17 04:06 Freq: QSHIFT Status: Active Target: Activity Type Activity Date Activity User E-Sign Co-Sign Detail Recorded Client Recorded Date Recorded By Document 07/11/17 01:00 [id number] 07/11/17 01:28 [id number] 07/11/17 01:00 PMRU Outcome: Communication/Cognitive Status Outcome/Goals Use Comm Tools/ Devices Makes Needs Known Effectively Progression Toward Outcomes/Goals Progressing DVT Prophylaxis- Improve/Maintain Start: 07/09/17 04:06 Freq: QSHIFT Status: Active Target: Activity Type Activity Date Activity User E-Sign Co-Sign Detail Recorded Client Recorded Date Recorded By Document 07/10/17 20:00 [id number] 07/11/17 01:28 [id number] 07/10/17 20:00 PMRU Outcome: DVT Prophylaxis Outcome/Goals Remains Free of DVT Free of complications from current DVT Complies with DVT Prophylaxis /Treatment Demonstrates Knowledge of DVT Prevention/ Treatment TEDS Stockings on Every AM, Off at HS Progression Toward Outcome/Goals Progressing /GI-Improve/Maintain Start: 07/09/17 04:06 Freq: QSHIFT Status: Active Target: Activity Type Activity Date Activity User E-Sign Co-Sign Detail Recorded Client Recorded Date Recorded By Document 07/10/17 20:00 [id number] 07/11/17 01:28 [id number] 07/10/17 20:00 PMRU Outcome: Genitourinary/ Gastrointestinal Genitourinary- Outcome/Goals Maintain/ Achieve Urinary Continence Maintain/ Achieve Adequate Urinary Output Remain Free of Hospital- Acquired UTI Gastrointestinal-Outcome/Goals Maintain/ Achieve Bowel Regularity in Accordance with Pt's Baseline Remain Free of Emesis Prevent Constipation Progression Toward Outcome/Goals - Progressing Progression Toward Outcome/Goals - GI Progressing Mobility- Improve/Maintain Start: 07/07/17 11:59 Freq: QSHIFT Status: Active Target: Activity Type Activity Date Activity User E-Sign Co-Sign Detail Recorded Client Recorded Date Recorded By Document 07/11/17 12:13 [id number] 07/11/17 12:13 [id number] 07/11/17 12:13 PMRU Outcome: Mobility Physical Therapy Evaluation and Yes Treatment Activity OOB with Assistance Yes WBAT Yes Device Yes Assistance Yes Patient to be seen 5x/wk for 60-120 min/ Therex day for: Mobility Training Gait Training Balance Other Therapy Comment Hip precautions RLE Outcome/Goals Maintain/ Achieve Baseline Mobility Status Improve Mobility Status Demonstrates Proper Use of Assistive Devices Free from Complications of Immobility Progression Toward Outcome/Goals Progressing Bed Mobility Yes: Independent Transfers Yes: Modified independent with RW Gait x ft Yes: Modified independent 150 ' with RW Up/Down Stairs Yes: Independent 12 steps 1 rail 1 cane With HEP Yes: Independent Medicine Note: Length of Stay: 4 days Anticipated Discharge Destination: Home Tentative Discharge Date: 07/15/17 Discharged to: Home
[2017-07-11] MEDS: Enoxaparin(*) 40 MG/0.4 ML SYR SUBCUT SCH (13:06)
[2017-07-11] MEDS: Senna TAB PO SCH (20:58)
[2017-07-12] MEDS: Cephalexin CAP* 500 MG PO SCH ×3 (05:38→20:16)
[2017-07-12] MEDS: [UNRECOGNIZED DRUG - OTHER] PO SCH (05:40)
[2017-07-12] MEDS: Aspirin Low Dose CHEW TAB* 81 MG PO SCH (09:04)
[2017-07-12] MEDS: Potassium Chlor TAB* 20 MEQ TAB.ER PO SCH ×2 (09:04→20:16)
[2017-07-12] MEDS: [UNRECOGNIZED DRUG - OTHER] PO SCH (09:04)
[2017-07-12] MEDS: Hydrochlorothiazide TAB* 25 MG PO SCH (09:04)
[2017-07-12] MEDS: Acetaminophen TAB* 325 MG PO PRN (09:12)
[2017-07-12] MEDS: Docusate CAP* 100 MG PO SCH ×2 (09:16→21:37)
[2017-07-12] MEDS: Enoxaparin(*) 40 MG/0.4 ML SYR SUBCUT SCH (13:01)
[2017-07-12] MEDS: Senna TAB PO SCH (21:37)
[2017-07-13] MEDS: Cephalexin CAP* 500 MG PO SCH (05:15)
[2017-07-13] MEDS: [UNRECOGNIZED DRUG - OTHER] PO SCH (05:15)
[2017-07-13 07:08] LABS: BUN/Creatinine Ratio 16.7 (8-20); EGFR African American 71.2 (>60); EGFR Non-African American 55.4 (>60); Potassium 3.9 mmol/L (3.5-5.0)
[2017-07-13] MEDS: Hydrochlorothiazide TAB* 25 MG PO SCH (09:19)
[2017-07-13] MEDS: [UNRECOGNIZED DRUG - OTHER] PO SCH (09:19)
[2017-07-13] MEDS: Aspirin Low Dose CHEW TAB* 81 MG PO SCH (09:20)
[2017-07-13] MEDS: Acetaminophen TAB* 325 MG PO PRN (09:24)
[2017-07-13] MEDS: Docusate CAP* 100 MG PO SCH ×2 (09:25→20:01)
[2017-07-13] MEDS: Enoxaparin(*) 40 MG/0.4 ML SYR SUBCUT SCH (12:58)
[2017-07-13] MEDS: Senna TAB PO SCH (20:01)
[2017-07-14] MEDS: [UNRECOGNIZED DRUG - OTHER] PO SCH (05:02)
[2017-07-14] MEDS: Acetaminophen TAB* 325 MG PO PRN (08:20)
[2017-07-14] MEDS: Hydrochlorothiazide TAB* 25 MG PO SCH (08:21)
[2017-07-14] MEDS: Aspirin Low Dose CHEW TAB* 81 MG PO SCH (08:21)
[2017-07-14] MEDS: [UNRECOGNIZED DRUG - OTHER] PO SCH (08:22)
[2017-07-14] MEDS: Docusate CAP* 100 MG PO SCH ×2 (08:23→19:19)
[2017-07-14] MEDS: Enoxaparin(*) 40 MG/0.4 ML SYR SUBCUT SCH (13:18)
[2017-07-14] MEDS: Senna TAB PO SCH (19:20)
[2017-07-15 06:03] VITALS: BP 122/66
[2017-07-15] MEDS: [UNRECOGNIZED DRUG - OTHER] PO SCH (06:06)
[2017-07-15] MEDS: Aspirin Low Dose CHEW TAB* 81 MG PO SCH (08:14)
[2017-07-15] MEDS: [UNRECOGNIZED DRUG - OTHER] PO SCH (08:14)
[2017-07-15] MEDS: Docusate CAP* 100 MG PO SCH (08:14)
[2017-07-15] MEDS: Hydrochlorothiazide TAB* 25 MG PO SCH (08:15)
[2017-07-15] MEDS: Enoxaparin(*) 40 MG/0.4 ML SYR SUBCUT SCH (10:39)
--- NOTE | 2017-07-15 11:29 | DS ---
CC: Dr. Faith; Dr. Isabel REHABILITATION DISCHARGE SUMMARY: DATE OF ADMISSION: 07/07/17 DATE OF DISCHARGE: 07/15/17 ORTHOPEDIC SURGEON: Dr. Faith. PRIMARY CARE PROVIDER: Dr. Isabel. REASON FOR ADMISSION: Right hip fracture. HISTORY OF PRESENT ILLNESS: For full details of her acute hospitalization leading up to her admission and right hemiarthroplasty with Dr. Faith, please see the note dictated by Dr. Salazar on 07/07/17. REHABILITATION COURSE: During her time on the [facility], she continued to use Lovenox for DVT prophylaxis. She has 9 more days after today, of 40 mg subcutaneously daily. She has arranged for a nurse friend to do the injections for her daily. She refused to use Coumadin or any other oral anticoagulant. Because of some lower extremity edema bilaterally, she was started on hydrochlorothiazide and has tolerated that well. She was given a prescription and will be followed up with Dr. Isabel to determine how much longer she should continue using it. She has been able to manage her pain using acetaminophen alone. She participated well in physical therapy and at the time of discharge, was independent with good mobility using a leg wine specialist, transfers using a rolling walker, and ambulation using a rolling walker. She can climb stairs with one rail, up and down for 10 stairs. She knows her hip precautions. She also participated with occupational therapy and at the time of discharge, is independent eating. She is modified independent with a long-handled sponge, grab bars and a shower chair for bathing and tub transfers. She is modified independent with adaptive equipment for dressing. She is modified independent with walker for toileting and toilet transfers. She is modified independent for home management and cooking. DISCHARGE CONDITION: Good. DISCHARGE DISPOSITION: Home. DISCHARGE MEDICATIONS: 1. Acetaminophen 650 mg q.6h. p.r.n. pain. 2. Lovenox 40 mg subcutaneously q.24h. for 9 more days. 3. Hydrochlorothiazide 12.5 mg daily. 4. Aspirin 81 mg daily. 5. Levothyroxine/liothyronine supplement 1 tablet daily. 6. Coenzyme Q10 200 mg daily. FOLLOWUP: 1. To see Dr. Isabel in 1 to 2 weeks. 2. Follow up with Dr. Faith in 1 to 2 weeks. DISCHARGE DIAGNOSES: 1. Right hip fracture, status post right hemiarthroplasty. 2. History of atrial fibrillation. 3. History of stroke with right-sided hemiplegia. 4. Hypertension. 5. Coronary artery disease, status post 3-vessel coronary artery bypass grafting. [id number]/[facility] #: [id number] MTDD
== END 2017-07-15 10:40 | disposition home or self-care (01) | DRG 560 ==
LOC: PMRU 10:22
PROVIDERS: ADMIT Physical Medicine & Rehabilitation; ATTEND Physical Medicine & Rehabilitation
PROC: F07Z5ZZ Bed Mobility Treatment (ICD-10-PCS; principal; 2017-07-07)
PROC: F07Z9ZZ Gait Training/Functional Ambulation Treatment (ICD-10-PCS; 2017-07-07)
PROC: F07Z8ZZ Transfer Training Treatment (ICD-10-PCS; 2017-07-07)
PROC: F08Z0ZZ Bathing/Showering Techniques Treatment (ICD-10-PCS; 2017-07-07)
PROC: F08Z1ZZ Dressing Techniques Treatment (ICD-10-PCS; 2017-07-07)
PROC: F08Z3ZZ Feeding/Eating Treatment (ICD-10-PCS; 2017-07-07)
DX: S72.001D Fracture of unspecified part of neck of right femur, subsequent encounter for closed fracture with routine healing (principal); I69.351 Hemiplegia and hemiparesis following cerebral infarction affecting right dominant side; I11.9 Hypertensive heart disease without heart failure; W10.8XXD Fall (on) (from) other stairs and steps, subsequent encounter; I48.91 Unspecified atrial fibrillation; I25.10 Atherosclerotic heart disease of native coronary artery without angina pectoris; Z96.641 Presence of right artificial hip joint; Z95.1 Presence of aortocoronary bypass graft; Z79.82 Long term (current) use of aspirin; Z79.899 Other long term (current) drug therapy; Z88.1 Allergy status to other antibiotic agents; Z88.5 Allergy status to narcotic agent; Z88.8 Allergy status to other drugs, medicaments and biological substances
CPT/HCPCS: 36415; 80048; 80053; 85025; A9270-GY; J1650

== ENCOUNTER 2018-05-28 21:36 | Inpatient (IN) | payer MEDICARE ==
[2018-05-28] MEDS ORDERED: NS 0.9% 1000 ML* 1,000 ML IV ONE (22:09)
--- NOTE | 2018-05-28 22:18 | ED ---
Neurological HPI - HPI Summary HPI Summary: 87 he is old female with past medical history of atrial fibrillation, patient is not on anticoagulation. Patient brought to the emergency room by EMS after she fell at home. At the beginning patient stated that she tripped and fell. There was no LOC, patient denied head injury, patient did deny focal weakness or numbness, patient is complaining of pain to the right knee, patient does have history of arthritis. Patient denies chest pain no nausea no vomiting no diaphoresis the urinary incontinence. She stated that she fell around 5:45 PM. - History of Current Complaint Chief Complaint: EDDizziness Stated Complaint: WEAKNESS/FALL Time Seen by Provider: 05/28/18 21:45 Hx Obtained From: Patient Onset/Duration: Sudden Onset Timing: Sudden Onset Pain Intensity: 0 - Additional Pertinent History Primary Care Physician: AMADOR - Allergy/Home Medications Allergies/Adverse Reactions: Allergies Allergy/AdvReac Type Severity Reaction Status Date / Time MS Levofloxacin AdvReac Mild Nausea Verified 07/06/16 11:35 [From Levaquin] MS Amlodipine [From Norvasc] AdvReac See Comment Verified 07/02/17 17:28 MS Atorvastatin AdvReac Muscle Ache Verified 07/02/17 17:28 [From Lipitor] MS Morphine [Morphine] AdvReac See Comment Verified 07/02/17 17:27 MS Niacin [Niacin] AdvReac GI Upset Verified 07/02/17 17:28 MS Ramipril [From Altace] AdvReac Coughing Verified 07/02/17 17:28 MS Simvastatin [From Zocor] AdvReac Muscle Ache Verified 07/02/17 17:28 MS Valsartan [From Diovan] AdvReac Fatigue Verified 07/02/17 17:28 Home Medications: Home Medications Aspirin EC TAB* [Ecotrin EC Low Dose 81 MG*] 81 mg PO DAILY 05/28/18 [History Confirmed 05/28/18] Ibuprofen TAB* [Advil TAB*] 200 mg PO Q8H PRN 05/28/18 [History Confirmed ] PMH/Surg Hx/FS Hx/Imm Hx Endocrine/Hematology History: Reports: Hx Thyroid Disease - hypothyroidism Cardiovascular History: Reports: Hx Atrial Fibrillation, Hx Coronary Artery Disease, Hx Hypertension, Other Cardiovascular Problems/Disorders - A-fib Denies: Hx Pacemaker/ICD Musculoskeletal History: Reports: 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, per pt' s physician Denies: Hx Back Problems Sensory History: Reports: Hx Contacts or Glasses Denies: Hx Hearing Aid Opthamlomology History: Reports: Hx Contacts or Glasses Neurological History: Reports: Other Neuro Impairments/Disorders - occassional confusion & forgetfulness Psychiatric History: Reports: Hx Depression Denies: Hx Panic Disorder - Surgical History Surgery Procedure, Year, and Place: CABG 2006, TOTAL KNEE REPLACEMENT (LEFT), HERNIA Hx Anesthesia Reactions: No Infectious Disease History: No Infectious Disease History: Reports: Hx Clostridium Difficile - 8 years ago Denies: Traveled Outside the [place] in Last 30 Days - Family History Known Family History: Positive: Cardiac Disease, Diabetes, Other - breast cancer - Social History Alcohol Use: Daily Alcohol Amount: 1 drink per day Substance Use Type: Reports: None Smoking Status (MU): Former Smoker Review of Systems Constitutional: Negative Respiratory: Negative Gastrointestinal: Negative Musculoskeletal: Negative Neurological: Negative All Other Systems Reviewed And Are Negative: Yes Physical Exam - Summary Physical Exam Summary: Elderly female no acute distress. Triage Information Reviewed: Yes Vital Signs On Initial Exam: Initial Vitals Temp Pulse Resp BP Pulse Ox 36.6 C 77 16 166/125 98 05/28/18 21:54 05/28/18 21:54 05/28/18 21:54 05/28/18 21:54 05/28/18 21:54 Vital Signs Reviewed: Yes Appearance: Positive: No Pain Distress Skin: Positive: Warm Head/Face: Positive: Normal Head/Face Inspection Eyes: Positive: Normal ENT: Positive: Normal ENT inspection Neck: Positive: Supple, Nontender, No Lymphadenopathy Respiratory/Lung Sounds: Positive: Clear to Auscultation, Breath Sounds Present. Negative: Rales, Rhonchi Cardiovascular: Positive: Pulses are Symmetrical in both Upper and Lower Extremities, Other - irregular rate and rhythm.. Negative: Murmur, Leg Edema Left Abdomen Description: Positive: Nontender, Soft. Negative: Guarding Bowel Sounds: Positive: Present Neurological: Positive: Sensory/Motor Intact, CN Intact II-III, Abnormal Gait, Speech Normal. Negative: Normal Gait - Patient seems to have difficulty walking secondary to ataxia/unsteady gait. Patient has bilateral dysmetria, unable to do [id number] bilaterally., Receptive Aphasia, Expressive Aphasia , EOM Palsy, Slurred Speech, Facial Symmetry Diagnostics - Vital Signs Vital Signs Temp Pulse Resp BP Pulse Ox 05/28/18 21:54 36.6 C 77 16 166/125 98 - Laboratory Result Diagrams: 05/28/18 22:24 05/28/18 22:24 Diagnostic Studies Comment: CT brain, read by imaging regulatory services consultant and showed chronic microvascular ischemic changes, chronic right frontal CVA and chronic lacunar infarcts. EKG shows atrial fibrillation at 90/m, normal axis, right bundle branch block, no acute ischemic changes.. Lab Statement: Any lab studies that have been ordered have been reviewed, and results considered in the medical decision making process. NIH Scale - NIH Scale Level of Consciousness: Alert/Keenly Responsive Ask Patient the Month and His/Her Age: Both Correct Ask Pt to Open/Close Eyes and Lines Tender/Release Non-Paretic Hand: Both Correctly Best Gaze (Only Horizontal Eye Movement): Normal Visual Field Testing: No Visual Loss Facial Paresis-Pt to Smile & Close Eyes or Grimace Symmetry: Normal/Symmetrical Motor Function - Right Arm: No Drift-Holds 10 Seconds Motor Function - Left Arm: No Drift-Holds 10 Seconds Motor Function - Right Leg: No Drift-Holds 10 Seconds Motor Function - Left Leg: No Drift-Holds 10 Seconds Limb Ataxia-Must be out of Proportion to Weakness Present: Present in Two Limbs Sensory (Use Pinprick to Test Arms/Legs/Trunk/Face): Normal Best Language (Describe Picture, Name Items): No Aphasia Dysarthria (Read Several Words): Normal Extinction and Inattention: No Abnormality Total Score: 2 Course/Dx - Course Course Of Treatment: 87 yrs old female with past medical history of atrial fibrillation, not taking anticoagulation, history of CVA. Patient brought to the emergency room by EMS after she fell at home around 5:45 PM,. Patient stated that she felt because she tripped. On exam patient was found to be unable to ambulate because of ataxia, also she had bilateral upper extremity dysmetria. William cerda initiated. Case discussed with stroke attending at the [facility], Dr. Washburn. Review patient's CAT scan. Patient is out of the window for thrombolytics. Onset of symptoms is about one half hours now. He recommeneded ASA, CTA head and neck. Pt to be admitted to the hospital here. Pt's son called and spoke to me. He stated Xarelto was stopped because patient did have an episode of GI bleed. And she did to resume it. CTA of head and neck was read by imaging regulatory services consultant as no major vascular occlusion, aneurysm or obvious AVM. Dural Sinuses appear intact. Time: 0030. Case discussed with admitting hospitalist, Jose Guadalupe Moore. Patient would be admitted to his service. - Diagnoses Provider Diagnoses: CVA (cerebral vascular accident) - Physician Notifications Discussed Care Of Patient With: Jose Guadalupe Moore Time Discussed With Above Provider: 00:20 Instructed by Provider To: Admit As Inpatient Admit/Transition Orders Completed By ED Provider: Yes - Critical Care Time Critical Care Time: 30-74 min - 40 minutes. Discharge - Sign-Out/Discharge Documenting (check all that apply): Discharge/Admit/Transfer - Discharge Plan Condition: Fair Disposition: ADMITTED TO [facility] Referrals: Breanna Isabel MD [Primary Care Provider] - - Billing Disposition and Condition Condition: FAIR Disposition: Admitted to [facility]
[2018-05-28 22:37] LABS: ABS Basophils 0 10^3/ul (0-0.2); ABS Eosinophils 0.1 10^3/ul (0-0.6); ABS Lymphocytes 1.4 10^3/ul (1.0-4.8); ABS Monocytes 0.6 10^3/ul (0-0.8); ABS Neutrophils 2.7 10^3/ul (1.5-7.7); ABS Nucleated RBC 0 10^3/ul; Eosinophil % 1.8 % (0-6); Hematocrit 37 % (35-47); Hemoglobin 12.6 g/dl (12.0-16.0); Lymphocyte % 29.1 % (25-47); Mean Corpuscular HGB Conc 34 g/dl (31-36); Mean Corpuscular Hemoglobin 31 pg (27-31); Mean Corpuscular Volume 91 fL (80-97); Mean Platelet Volume 8.9 um3 (7.4-10.4); Nucleated Red Blood Cells % 0.1; Platelet Count 151 10^3/ul (150-450); Red Blood Count 4.11 10^6/ul (4.00-5.40); Red Cell Distribution Width 15 % (10.5-15); White Blood Count 4.9 10^3/ul (3.5-10.8)
[2018-05-28] MEDS ORDERED: Aspirin TAB* 325 MG PO ONE (22:40)
[2018-05-28 22:49] LABS: EGFR Non-African American 45.8 (>60)
[2018-05-28 22:52] LABS: INR 1.06 (0.77-1.02)
[2018-05-28] MEDS ORDERED: Iodixanol* (CONTRAST) 320 MG/ML 100 ML SDV IV ONE (22:54)
[2018-05-28 23:28] LABS: Urine Appearance Cloudy; Urine Blood Negative (Negative); Urine Color Yellow; Urine Ketones Negative (Negative); Urine Protein 1+(30 mg/dL) (Negative); Urine Red Blood Cell Absent (Absent); Urine Specific Gravity 1.013 (1.010-1.030); Urine Urobilinogen Negative (Negative); Urine White Blood Cell Trace(0-5/hpf) (Absent)
[2018-05-29] MEDS ORDERED: Acetaminophen TAB* 325 MG PO PRN (01:11)
[2018-05-29] MEDS ORDERED: Ondansetron INJ* 2 MG/ML VIAL IV PRN (01:11)
[2018-05-29] MEDS ORDERED: hydrALAZINE IV* 20 MG/ML VIAL IV SLOW PU PRN (01:26)
[2018-05-29] MEDS ORDERED: hydrALAZINE IV* 20 MG/ML VIAL ONE (01:49)
--- NOTE | 2018-05-29 04:15 | HP ---
CC: Dr. Isabel * HISTORY AND PHYSICAL: DATE OF ADMISSION: 05/29/18. PRIMARY CARE PROVIDER: Dr. Isabel. ATTENDING PHYSICIAN WHILE IN THE HOSPITAL: Arturo Cuevas MD * (report dictated by Jose Guadalupe Moore NP) CHIEF COMPLAINT: Fall. HISTORY OF PRESENT ILLNESS: Mrs. Montaño is an 87-year-old female patient. She has a history of AFib, CAD, hypertension, and history of CVA, who has had a history of GI bleed in the past while on Xarelto and subsequently since then has been hesitant to be placed back on blood thinners. She is presenting today , according to the patient, she was getting up, taking her dishes from where she was eating to put them in the sink to wash them and she sustained a fall. She said she did not feel dizzy. She did not pass out. She said she just fell. She tried getting back up and the she fell again and then at that point, she pressed her Life Alert button. She said she did not have a loss of consciousness. She denied hitting her head. She said that she did not feel dizzy. She denied having any trouble with her speech or any weakness to one side or changes or trouble with her vision. She said that she has not had any recent fevers or chills. No nausea, vomiting. No diarrhea. No dysuria or frequency. She said that she has not had any history of seizure activity either. She was concerned because of the fall, came into the ED. She was evaluated by the ED and it was noted that she was having bilateral dysmetria. She was having trouble doing [id number] bilaterally and she was having trouble with her gait. It was noted that she appeared to be ataxic. She was almost falling and she was so shaky here in the ED. There is concern for possible stroke and a code snow was called. Because of the concern of the stroke, we were asked to be evaluated for admission. PAST MEDICAL HISTORY: Significant for: 1. AFib. 2. CAD. 3. Hypertension. 4. CVA. PAST SURGICAL HISTORY: 1. The patient had a CABG. 2. Left total knee replacement. 3. Right hip pinning. 4. Lens implantation. MEDICATIONS: Home meds include: 1. Advil 200 mg every 8 hours as needed. 2. Aspirin 81 mg daily. ALLERGIES TO MEDICATIONS: Include LEVAQUIN, AMLODIPINE, ATORVASTATIN, MORPHINE , NIACIN, ALTACE, ZOCOR, DIOVAN. FAMILY HISTORY: Mother had a history of diabetes type 1. Father had a history of CAD. SOCIAL HISTORY: She is a former smoker. Occasionally drinks alcohol. Her surrogate decision maker is her son, Fidel. REVIEW OF SYSTEMS: There is no documented fever. She is denying having any significant weight change. There was no double vision. There was no ear discharge. She denies having any rhinorrhea. No sore throat. No thyroid enlargement. She denies having any chest pain. There was no orthopnea. There was no nocturnal dyspnea. There was no abdominal pain. No nausea. No vomiting. No dysuria. No frequency. No seizure. No loss of consciousness. No pruritus. No skin ulcerations. Review of 14 systems was completed and all others negative. PHYSICAL EXAMINATION GENERAL: At this time, Mrs. Montaño is an 87-year-old female patient. She is sitting in the ED stretcher. She appears to be well nourished, well developed. She does not appear to be in any acute distress. VITAL SIGNS: Blood pressure 177/108 with a pulse of 91, respirations were 20, O2 sat 98%, temperature of 98. HEENT: Head: Atraumatic, normocephalic. Eyes: EOMs are intact. Sclerae anicteric, not pale. Throat: Oral mucosa appears to be moist. No oropharyngeal erythema. NECK: Supple. LUNGS: Clear to auscultation bilaterally. No wheezes, rales, or rhonchi. HEART: Sounds S1, S2. Irregularly irregular rate. No murmurs, rubs, or gallops. ABDOMEN: Soft, flat, nontender. Bowel sounds present. EXTREMITIES: Pulses 2+ throughout. She is able to move all 4 extremities with 5/5 strength. NEUROLOGICAL: She is awake. She is alert. She is oriented x3. Her speech was clear to me. She did have slight facial droop on the left, it is unclear if this was old or new, as well as according to the nursing staff present when she presented. [id number]-[id number] for me, now it is intact bilaterally. Heel-to- pratt intact bilaterally. She had no pronator drift. Cranial nerves were again intact. She had no other gross focal deficits on my exam. SKIN: Intact. DIAGNOSTIC STUDIES/LAB DATA: Labs, WBC of 4.9, RBC of 4.11, hemoglobin 12.6, hematocrit of 37, platelet count of 151. INR of 1.06. PTT was 29.8. Sodium was 138, potassium of 3.7, chloride of 104, bicarb 25, BUN 23, creatinine 1.13, glucose 100, lactic 2.2, calcium 9.3. Total bili is 0.7. AST 19, ALT 10. Alk phos 86. Her troponin was 0.04. Albumin of 3.9. LDH was 62. Urine obtained showed 1+ bacteria, 1+ protein, otherwise negative. She had a head CTA obtained today, impression: No major vessel occlusion and there is no obvious AVM, dural sinuses appeared appeared patent. CT of the neck, moderate calcifications, carotid bulbs, no major vascular occlusion. Vertebral arteries appeared to be patent without evidence of dissection. She had a CT brain, which impression: Cerebral atrophy, chronic microvascular ischemic changes are noted. Chronic right frontal CVA. Chronic lacunar infarcts. No acute intracranial hemorrhage or acute infarct visualized in the aspect of the paranasal sinuses and mastoid. Air cells are unremarkable. She did have an EKG obtained today as well, which does show atrial fibrillation rate of 90 with a right bundle-branch block with LVH, which is similar to her previous EKGs. She did have a chest x-ray obtained today as well. On my review, it does appear that she has cardiomegaly, and she is rotated in this film, but no gross infiltrates or pleural effusion. Old medical records were reviewed. ASSESSMENT AND PLAN: Mrs. Montaño is an 87-year-old female patient coming into the emergency department today with complaints of fall. On evaluation in the ED a daina snow was called for dysmetria and ataxia. She will be admitted under inpatient status for: 1. Presumed cerebrovascular accident. At this point, the patient will undergo MRI tomorrow. I will get echo with bubble study. I explained that at length to the son and to the patient about the benefit of anticoagulation in the setting of atrial fibrillation or cerebrovascular accident as she is at increased of stroke given her elevated CHADS-VASc score. At this point, she understands the risk as does the patient's son. She is not interested in anticoagulation. However, we should reevaluate this again with Neurology. At this point, I will continue aspirin. It is too early to put her on blood thinners again. If she has an active stroke, we will continue to follow. I did order neuro check. We will place the patient on telemetry. We will get an MRI. We will touch base with Neurology in the morning. 2. Atrial fibrillation. Rate is controlled. We will continue to monitor. 3. History of hypertension. In the setting of acute cerebrovascular accident with the diastolics run less than 110. I would like to have the systolics less than 190. I did order p.r.n. hydralazine, should she get over 110 for diastolic or over 190 for systolic. 4. Coronary artery disease. Continue with her aspirin. 5. History of cerebrovascular accident. Again, continue with secondary prevention. Again, she should be on blood thinners but she is at this point not interested. 6. DVT prophylaxis. We will order SCDs. 7. Code status: She is a full code. 8. Fluids, electrolytes, and nutrition. Pending nursing swallow evaluation. She can have a heart-healthy diet. TIME SPENT: Time spent on admission was 60 minutes, greater than half the time spent [id number] with the patient obtaining my history and physical; other half of the time spent going over my plan of care with the patient and implementing the plan of care. I did discuss the plan of care with my attending , Dr. Cuevas, he is in agreement. JOSE GUADALUPE MOORE NP [id number]/CPS #: [id number] LAURY
--- NOTE | 2018-05-29 07:25 | RAD ---
INDICATION: Neurologic changes code snow. COMPARISON: Comparison is made with a prior CT of the brain from October 19, 2015. TECHNIQUE: Contiguous axial sections of the brain were obtained from the skull base to the vertex without contrast. FINDINGS: The ventricles, cisterns and sulci are enlarged consistent with diffuse atrophy. There are multiple focal areas of decreased density in the subcortical and periventricular white matter suggestive of moderate chronic small vessel ischemic changes. There is a small focal area of encephalomalacia in the right frontal lobe which is unchanged consistent with an old infarct. No other focal abnormalities or mass effect are seen. There is no evidence for hemorrhage. No significant focal osseous abnormality is seen. The visualized portion of the paranasal sinuses and mastoid air cells appear clear. The results of this exam were called by image director council on aging at 2224 hours to the referring clinician. IMPRESSION: 1. NO EVIDENCE FOR GROSS ACUTE INFARCT, MASS EFFECT OR HEMORRHAGE. 2. OLD RIGHT FRONTAL LOBE INFARCT. 3. ATROPHY AND MODERATE CHRONIC SMALL VESSEL ISCHEMIC CHANGES.
--- NOTE | 2018-05-29 07:27 | RAD ---
INDICATION: Neurologic changes, code snow. COMPARISON: Comparison is made with the prior study from July 02, 2017. TECHNIQUE: A portable view of the chest was obtained. FINDINGS: The patient appears to be status post coronary artery bypass surgery. There are multiple sternal sutures and mediastinal clips. The heart is moderately enlarged and unchanged. The lungs are hyperinflated and clear. No pleural effusion is seen. IMPRESSION: POSTSURGICAL CHANGES AND CARDIOMEGALY, NO EVIDENCE FOR ACUTE FINDING.
--- NOTE | 2018-05-29 07:57 | RAD ---
CPT II: CPT II Codes: 3100F INDICATION: Weakness COMPARISON: Same day noncontrast CT of the brain that shows encephalomalacia at the right frontal lobe. TECHNIQUE: A CT angiogram of the head and neck was performed with 80 cc of Visipaque 320. Contiguous axial sections were obtained from the thoracic inlet through the [place]. Images were reconstructed in the sagittal, coronal planes and in a 3-D volume rendered format. The distal cervical internal carotid artery diameter is used as the denominater for stenosis measurement. CTA NECK: Dental amalgam causes streak artifact at the level of the upper cervical spine somewhat limiting evaluation of the common and internal carotid arteries. The common and internal carotid arteries are patent without hemodynamically significant stenosis. Right: Below the carotid bifurcation the common carotid artery measures 6 mm in short axis diameter. There is coarse calcification at the carotid bulb causing the lumen narrowed to 5 mm. This corresponds to approximately 17% degree narrowing. Left: Below the carotid bifurcation the common carotid artery measures 6 mm in diameter. There is coarse atherosclerotic calcification at the carotid bulb narrowing the lumen to 5 mm. This corresponds to 17% degree stenosis. There is coarse calcification at the origin of the left vertebral artery. There is mild dominance of the left vertebral artery relative to the right. There is coarse calcification as each vertebral artery enters the foramen magnum. The vertebral arteries appear to be patent up to the confluence with the basilar artery. CTA of the brain: The internal carotid, anterior and middle cerebral arteries appear are patent without high grade stenosis or occlusion. There is coarse calcification at the bilateral petrous carotid arteries. The vertebral, basilar and posterior cerebral arteries appear patent without high grade stenosis or occlusion. The right posterior communicating artery is absent causing the [place] to be incomplete. No focal luminal filling defect, aneurysm or vascular malformation is seen. NON-ARTERIAL FINDINGS: Again noted is encephalomalacia at the right frontal lobe. Multilevel degenerative changes of the cervical spine include loss of intervertebral disc height with sclerotic change at C3/C4 and C5/C6. IMPRESSION: 1. According to NASCET criteria there is less than 50% degree stenosis caused by the calcified atherosclerosis of the bilateral carotid bulbs. If clinically warranted further characterization of carotid artery stenosis can be made with carotid ultrasound. 2. There are no abrupt filling defects or other acute abnormalities in any of the large named cervical or intracerebral arteries.
[2018-05-29] MEDS ORDERED: Aspirin 81 mg CHEW TAB* 81 MG TAB.CHEW PO SCH (09:00)
[2018-05-29] MEDS: Aspirin TAB* 325 MG PO SCH (09:11)
--- NOTE | 2018-05-29 10:49 | RAD ---
HISTORY: CVA COMPARISONS: Head CT dated May 28, including, MRI of the brain dated August 04, 2015 TECHNIQUE: The following sequences were obtained of the head: Sagittal T1-weighted images, axial T2-weighted images, axial FLAIR images, axial susceptibility weighted images, axial T1-weighted images. Additionally, axial diffusion-weighted images were obtained with calculated apparent diffusion coefficients. FINDINGS: HEMORRHAGE/INFARCT: There is no hemorrhage or acute infarct. MASSES/SHIFT: There is no mass or shift. EXTRA-AXIAL SPACES/MENINGES: There are no extra-axial fluid collections. SULCI AND VENTRICLES: There is diffuse and proportional enlargement of the sulci and ventricles. CEREBRUM: There is right frontal encephalomalacia. There is diffuse, confluent elevated T2/FLAIR signal in the periventricular and subcortical white matter, with chronic infarcts of the left pearce radiata. BRAINSTEM: There are no focal parenchymal abnormalities. CEREBELLUM: There are no focal parenchymal abnormalities. The cerebellar tonsils are normal in size and position. SELLA: The sella is normal. PINEAL: The pineal region is clear. CP ANGLE/TEMPORAL BONES: The labyrinthine structures are grossly normal. VESSELS: Normal flow-voids are noted within the visualized vertebral vasculature. DIFFUSION ABNORMALITIES: There are no diffusion abnormalities. PARANASAL SINUSES/MASTOIDS: The paranasal sinuses are clear. ORBITS: The orbits are unremarkable. BONES AND SOFT TISSUE: No bone or soft tissue abnormalities are noted. OTHER: None IMPRESSION: 1. CHRONIC SMALL VESSEL ISCHEMIC CHANGES WITH EVIDENCE OF PREVIOUS INFARCT. 2. NO RESTRICTED DIFFUSION TO SUGGEST ACUTE INFARCT.
--- NOTE | 2018-05-29 14:53 | PN ---
Subjective Date of Service: 05/29/18 Interval History: Patient seen and examined. Appears upset that she is in the hospital. States "I' ve never had strokes and they keep telling me I did". Explained that she may have had another, but patient refuses to accept and continues to refuse anticoagulation. Denies chest pain, no SOB, no dizziness. Objective Active Medications: Acetaminophen (Tylenol Tab*) 650 mg PO Q4H PRN PRN Reason: FEVER/PAIN Aspirin (Aspirin Tab*) 325 mg PO DAILY THANIA Last Admin: 05/29/18 09:11 Dose: 325 mg Hydralazine HCl (Apresoline Iv*) 5 mg IV SLOW PU Q6H PRN PRN Reason: BLOOD PRESSURE Last Admin: 05/29/18 01:52 Dose: 5 mg Ondansetron HCl (Zofran Inj*) 4 mg IV Q6H PRN PRN Reason: NAUSEA Vital Signs - 8 hr 05/29/18 05/29/18 05/29/18 07:40 07:42 08:00 Temperature 97.4 F Pulse Rate 78 89 Respiratory 16 18 Rate Blood Pressure 184/99 (mmHg) O2 Sat by Pulse 100 100 Oximetry 05/29/18 11:09 Temperature 97.5 F Pulse Rate 81 Respiratory 16 Rate Blood Pressure 175/101 (mmHg) O2 Sat by Pulse 98 Oximetry Oxygen Devices in Use Now: None Result Diagrams: 05/28/18 22:24 05/28/18 22:24 Assess/Plan/Problems-Billing Assessment:
--- NOTE | 2018-05-29 15:50 | ECHO ---
Patient: ANÍBAL YANEZ [facility] Rec#: [id number] : 1930 Date: 05/29/2018 Age: 87y Height: 168 cm / 66.1 in Weight: 50 kg / 110.2 lbs Sex: F BSA: 1.56 Room#: 444 Admit Date#: 05/29/2018 Type: Inpatient Referring: Jose Guadalupe Moore NP Reading: Latrell Barrios MD Electrical Wirer: Katherine Brantley RDCS,RDMS CC: rBeanna Isabel MD Transthoracic Echocardiogram Indication: AFIB BP: 145/89 HR: 87 Rhythm: A-Fib Findings History: AFIB, CAD, CABG, ASD (secundum) repair, HTN, CVA Technical Comments: The study quality is good. Left Ventricle: The left ventricular chamber size is normal. Mild concentric left ventricular hypertrophy is observed. There is global hypokinesis of the left ventricle with minor regional variation. The estimated ejection fraction is 20-25%. The assessment of diastolic function is non-diagnostic. The basal anteroseptal, basal anterior, basal anterolateral, basal inferolateral, basal inferoseptal, mid anteroseptal, mid anterior, mid anterolateral, mid inferolateral, mid inferior, mid inferoseptal, apical septal, apical anterior, apical lateral, and apical inferior wall segments are hypokinetic (score 2). The basal inferior wall segment is akinetic (score 3). Overall wallmotion score index is 2.06 Left Atrium: The left atrium is severely dilated. Right Ventricle: The right ventricle is mildly dilated. The right ventricular global systolic function is normal. Right Atrium: The right atrial cavity size is severely dilated. The bubble study is negative. A patent foramen ovale is not demonstrated with color Doppler and agitated contrast. Aortic Valve: The aortic valve is trileaflet. The aortic valve leaflets are mildly thickened. Systolic excursion of the aortic valve cusps is reduced. There is a trace of aortic regurgitation. There is mild aortic stenosis. Mitral Valve: There is mitral annular calcification. The mitral valve leaflets are mildly thickened. There is moderate to severe mitral regurgitation. The mitral regurgitant jet is posteriorly directed. The mitral regurgitant jet is laterally directed. There is no evidence of mitral stenosis. Pulmonary vein flow reversal is present. Tricuspid Valve: The tricuspid valve leaflets are normal. There is severe tricuspid regurgitation. The right ventricular systolic pressure is estimated at 49 mmHg. There is evidence of moderate pulmonary hypertension. Pulmonic Valve: The pulmonic valve appears normal. There is mild pulmonic regurgitation. Pericardium: There is no significant pericardial effusion. Aorta: The ascending aorta is not well visualized. There is no dilatation of the aortic arch. The aortic root is normal in size. Pulmonary Artery: The main pulmonary artery appears normal. Venous: The inferior vena cava is dilated. There is less than 50% respiratory change in the inferior vena cava dimension. Conclusions Mild concentric left ventricular hypertrophy is observed. There is global hypokinesis of the left ventricle with minor regional variation. The estimated ejection fraction is 20-25%. The left atrium is severely dilated. The right ventricle is mildly dilated. The right atrial cavity size is severely dilated. The bubble study is negative. Systolic excursion of the aortic valve cusps is reduced. There is a trace of aortic regurgitation. There is mild aortic stenosis. There is moderate to severe mitral regurgitation. Pulmonary vein flow reversal is present c/w severe MR. There is severe tricuspid regurgitation. There is evidence of moderate pulmonary hypertension. There is mild pulmonic regurgitation. Compared to 07/2015, the LV function has decreased from 45% to 20-25%, the MR has increased from mild, the TR has increased from moderate/severe, and the mild is new. Measurements Name Value Normal Range RVIDd (AP) 2D 3.4 cm (0.9 - 2.6) RVDdMajor (2D) 2.6 cm (2.2 - 4.4) RAd ISD 4CH 7.2 cm (3.4 - 4.9) RA (A4C)W 5.6 cm (2.9 - 4.6) IVSd (2D) 1.3 cm (0.6 - 1) LVPWd (2D) 1.5 cm (0.6 - 1) LVIDd (2D) 4.8 cm (3.6 - 5.4) LVIDs (2D) 3.4 cm - LV FS (2D) 29 % (25 - 45) Aortic Annulus 1.9 cm (1.4 - 2.6) Ao root diameter (2D) 3.1 cm (2.1 - 3.5) Aortic arch 2.5 cm (1.8 - 3.4) LA dimension (AP) 2D 5 cm (2.3 - 3.8) LAd ISD 4CH 7.4 cm (2.9 - 5.3) LA ISD 4CH W 5.7 cm (2.5 - 4.5) Name Value Normal Range LA ESV BP (A/L) index 105 ml/m2 - Name Value Normal Range MV E-wave Vmax 1 m/sec - MV deceleration time 163 msec - Name Value Normal Range AV Vmax 0.9 m/sec - AV peak gradient 3.2 mmHg - LVOT Vmax 0.6 m/sec - LVOT peak gradient 1.4 mmHg - JORDIN Vmax 0.5 m/sec - Name Value Normal Range MR Vmax 6.3 m/sec - MR VTI 214 cm - MR ERO 2 cm2 - MR PISA radius 0.8 cm - MR alias Vmax 31 cm/sec - Name Value Normal Range TR Vmax 2.7 m/sec - TR peak gradient 29 mmHg - RAP 20 mmHg - RVSP 49 mmHg - IVC diameter 2.3 cm - Name Value Normal Range PV Vmax 1 m/sec - PV peak gradient 4 mmHg - Wallmotion BAS Hypokinetic BA Hypokinetic BAL Hypokinetic SUSAN Hypokinetic BI Akinetic BIS Hypokinetic MAS Hypokinetic MA Hypokinetic MAL Hypokinetic MIL Hypokinetic IN Hypokinetic MIS Hypokinetic Hypokinetic AA Hypokinetic AL Hypokinetic AI Hypokinetic APEX Hypokinetic
[2018-05-29] MEDS: hydrALAZINE IV* 20 MG/ML VIAL IV SLOW PU PRN (16:23)
[2018-05-29] MEDS: Valsartan TAB* 40 MG PO SCH (20:52)
[2018-05-30] MEDS: hydrALAZINE IV* 20 MG/ML VIAL IV SLOW PU PRN (04:28)
[2018-05-30 07:22] LABS: ABS Basophils 0 10^3/ul (0-0.2); ABS Eosinophils 0.1 10^3/ul (0-0.6); ABS Lymphocytes 1.3 10^3/ul (1.0-4.8); ABS Monocytes 0.5 10^3/ul (0-0.8); ABS Neutrophils 2.5 10^3/ul (1.5-7.7); ABS Nucleated RBC 0 10^3/ul; Eosinophil % 2.8 % (0-6); Hematocrit 37 % (35-47); Hemoglobin 12.6 g/dl (12.0-16.0); Lymphocyte % 28.3 % (25-47); Mean Corpuscular HGB Conc 34 g/dl (31-36); Mean Corpuscular Hemoglobin 30 pg (27-31); Mean Corpuscular Volume 89 fL (80-97); Mean Platelet Volume 8.8 um3 (7.4-10.4); Nucleated Red Blood Cells % 0.2; Platelet Count 135 10^3/ul (150-450); Red Blood Count 4.18 10^6/ul (4.00-5.40); Red Cell Distribution Width 15 % (10.5-15); White Blood Count 4.4 10^3/ul (3.5-10.8)
[2018-05-30 07:28] LABS: INR 1.17 (0.77-1.02)
[2018-05-30 07:38] LABS: EGFR Non-African American 62.7 (>60)
[2018-05-30] MEDS: Aspirin TAB* 325 MG PO SCH (08:30)
[2018-05-30] MEDS: Valsartan TAB* 40 MG PO SCH (08:30)
[2018-05-30] MEDS ORDERED: Magnesium Sulfate 1 GM IV* 1 GM/100 ML BAG IV ONE (08:59)
[2018-05-30] MEDS ORDERED: Potassium Chlor TAB* 20 MEQ TAB.ER PO ONE (10:10)
--- NOTE | 2018-05-30 10:37 | PN ---
PROGRESS NOTE: DATE OF VISIT: 05/29/18 PATIENT OF: Dr. Breanna Isabel and Jose Guadalupe Moore. HISTORY: This is an 87-year-old I am asked to evaluate for possible stroke. This is a followup neuro consult with Zhou, having seen by Jose Guadalupe Moore yesterday by TeleStroke, but there is nothing in the chart. For that, she presented yesterday with dysmetria and ataxia with a history of atrial fibrillation. She sustained the initial symptom of fall without passing out. It is unclear whether she was ataxic before that, but did not have loss of consciousness. She had no weakness or numbness, but it was noted too in the ER as workup for the fall has bilateral dysmetria. It was noted that she appeared to be ataxic. Because of concern of a possible stroke, a daina snow was called and [place] was contacted, and again I do not have their evaluation. She has a history of Afib, coronary artery disease, hypertension and past history of CVA. She has had CABG, left total knee replacement, right hip pinning, lens implantation. MEDICATIONS: Include: 1. Advil 200 mg every 8 hours as needed. 2. Aspirin 81 mg a day. ALLERGIES: She is allergic to LEVAQUIN, AMLODIPINE, ATORVASTATIN, MORPHINE, NIACIN, ALTACE, ZOCOR, and DIOVAN. Apparently, she has been on anticoagulation in the past and has GI bleed. FAMILY HISTORY: Mother had a history of type 1 diabetes and father had a history of coronary artery disease. SOCIAL HISTORY: She is a former smoker. She occasionally drinks alcohol and the surrogate decision maker is her son. REVIEW OF SYSTEMS: Negative in all 14 spheres, other than the HPI. PHYSICAL EXAMINATION: Temperature 97.5, pulse 81, respirations 16, blood pressure 175/101. She is alert and oriented with normal speech and comprehension. Cranial nerves II through XII are intact. Fundi show sharp discs. Motor exam revealed normal tone and strength. She has intact cranial nerves bilaterally. She is mildly unsteady on her feet, but did not think that this was a change. Chest is clear. Cardiovascular, irregular rate and rhythm. Abdomen is soft with positive bowel sounds. IMAGING DATA: I reviewed her MRI scan, which did not show any acute stroke, but did show small vessel disease and an old right frontal area of encephalomalacia consistent with a prior stroke. She had transthoracic echocardiogram, which showed severe left atrial dilatation, mild left ventricular hypertrophy. She had a head and neck CTA, it showed 50% stenosis in the bilateral carotid bulbs. We discussed with Mely that with her past history of stroke probably more than 1 stroke by history and with her history of atrial fibrillation, recommendation that she should be on anticoagulation and be protected, but done in conjunction with her primary or a GI specialist to minimize the risk of GI bleed. She is not interested in that at this point and so she should continue on antiplatelet agent. We discussed the rationale for this recommendation in detail. There is no further workup for stroke necessary as in she has LDL pending. She has some minor evidence for a possible peripheral neuropathy on exam, and therefore I am recommending vitamin B12, folate to be checked as well as folic acid. Thank you for sharing her case. [id number]/[facility] #: [id number] LAURY
--- NOTE | 2018-05-30 12:31 | PN ---
Subjective Date of Service: 05/29/18 Interval History: Patient seen and examined in AM, pending MRI and ECHO today. Discussed possibility of new CVA given lack of anticoagulation in presence of afib, but patient states "I've never head strokes before and everyone is telling me I did. " Explained this may or may not be the case and that additional testing is advised per neurology. Also that troponins are rising and that she may have cardiac damage as well. Patient keeps repeating that she wants to be discharged to home today. Explained that work up is not complete and we will discuss disposition later. No complaint of fever or chills, no palpitations, no complaints of chest pain or SOB, no neuro complaints. Objective Active Medications: Acetaminophen (Tylenol Tab*) 650 mg PO Q4H PRN PRN Reason: FEVER/PAIN Aspirin (Aspirin Tab*) 325 mg PO DAILY [facility] Last Admin: 05/30/18 08:30 Dose: 325 mg Enoxaparin Sodium (Lovenox(*)) 55 mg SUBCUT Q12H [facility] Hydralazine HCl (Apresoline Iv*) 5 mg IV SLOW PU Q6H PRN PRN Reason: BLOOD PRESSURE Last Admin: 05/30/18 04:28 Dose: 5 mg Ondansetron HCl (Zofran Inj*) 4 mg IV Q6H PRN PRN Reason: NAUSEA Valsartan (Diovan Tab*) 20 mg PO DAILY [facility] Last Admin: 05/30/18 08:30 Dose: 20 mg 05/29/18 05/29/18 05/29/18 00:56 01:00 01:45 Temperature 97.8 F Pulse Rate 88 Respiratory 22 20 16 Rate Blood Pressure 177/108 167/117 (mmHg) O2 Sat by Pulse 97 Oximetry 05/29/18 05/29/18 05/29/18 02:30 07:40 07:42 Temperature 97.8 F 97.4 F Pulse Rate 100 78 89 Respiratory 16 16 Rate Blood Pressure 145/89 184/99 (mmHg) O2 Sat by Pulse 100 100 100 Oximetry 05/29/18 05/29/18 05/29/18 08:00 11:09 15:13 Temperature 97.5 F 97.5 F Pulse Rate 81 80 Respiratory 18 16 16 Rate Blood Pressure 175/101 186/100 (mmHg) O2 Sat by Pulse 98 98 Oximetry Oxygen Devices in Use Now: None Appearance: Alert, NAD Eyes: No Scleral Icterus, PERRLA Ears/Nose/Mouth/Throat: NL Teeth, Lips, Gums, Mucous Membranes Moist Neck: NL Appearance and Movements; NL JVP, Trachea Midline Respiratory: Symmetrical Chest Expansion and Respiratory Effort, - - diminished bases with mild crackles bilaterally Cardiovascular: - - afib on tele with PACs and PVCs, grade II/ murmur Abdominal: NL Sounds; No Tenderness; No Distention Skin: No Rash or Ulcers Neurological: Alert and Oriented x 3 Nutrition: Taking PO's Result Diagrams: 05/30/18 07:06 05/30/18 07:06 Microbiology and Other Data: Microbiology 05/28/18 22:55 Urine Culture - Final Urine Assess/Plan/Problems-Billing Assessment: This is an 87 year old female with history of CAD, CABG, afib, CVAs and HTN that presented to the ER with a complaint of legs giving out and an inability to ambulate, prompting her to use her medic alert, found to have acute neurologic deficits with bilateral dismetria in ER with inability to ambulate. Code Tong called, no acute CVA on CT scan. Admitted for r/o neuro vs cardiac event with noted rising troponins today. - Patient Problems (1) Gait abnormality Code(s): R26.9 - UNSPECIFIED ABNORMALITIES OF GAIT AND MOBILITY SNOMED Code(s) : 55243699 Comment: - Neurology evaluated, CT and CTA negative for acute infarct or thrombus - No indication for thrombolytics - Pending MRI today - PT eval (2) Elevated troponin Code(s): R74.8 - ABNORMAL LEVELS OF OTHER SERUM ENZYMES SNOMED Code(s): 142777627 Comment: - Denies chest pain, no SOB - Unclear if demand ischemia, no acute ST segment changes on EKG - Patient has consistently denied stress tests in the past and refuses to have inpatient stress during this admission - Will discuss with Dr. 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 (3) Atrial fibrillation Code(s): I48.91 - UNSPECIFIED ATRIAL FIBRILLATION SNOMED Code(s): 17435455 Comment: - Patient adamantly refuses AC secondary to GI bleeding several years ago - Counseled again extensively given new issues during this admission (4) CAD (coronary artery disease) Code(s): I25.10 - ATHSCL HEART DISEASE OF [place] CORONARY ARTERY W/O ANG PCTRS SNOMED Code(s): 31912831 Comment: - Only taking ASA 81mg daily, had CABG in 2005 - No recent stress or cath as per patient (5) HTN (hypertension) Code(s): I10 - ESSENTIAL (PRIMARY) HYPERTENSION SNOMED Code(s): 01195119 Comment: - Remains high, patient not taking meds at home - Hydralazine PRN - Will start diovan (6) Hx of three vessel coronary artery bypass Code(s): Z95.1 - PRESENCE OF AORTOCORONARY BYPASS GRAFT SNOMED Code(s): 934415171 Comment: - Needs further evaluation (7) Patient is full code Code(s): Z78.9 - OTHER SPECIFIED HEALTH STATUS SNOMED Code(s): 529436114 Status and Disposition: Patient is very resistant to recommendations and treatment. Will reach out to Dr. Barrios for guidance after MRI and ECHO complete. Appreciate any further recs from neuro as well.
--- NOTE | 2018-05-30 13:03 | PN ---
Subjective Date of Service: 05/30/18 Interval History: Patient seen and examined - events from overnight discussed. As per cardiology, patient is too high risk to have cardiac cath here. Cardiology will reach out to [facility] for transfer to higher level of care. Patient denies SOB, no chest pain, no palpitations, no dizziness or weakness. Objective Active Medications: Acetaminophen (Tylenol Tab*) 650 mg PO Q4H PRN PRN Reason: FEVER/PAIN Aspirin (Aspirin Tab*) 325 mg PO DAILY [facility] Last Admin: 05/30/18 08:30 Dose: 325 mg Enoxaparin Sodium (Lovenox(*)) 55 mg SUBCUT Q12H [facility] Hydralazine HCl (Apresoline Iv*) 5 mg IV SLOW PU Q6H PRN PRN Reason: BLOOD PRESSURE Last Admin: 05/30/18 04:28 Dose: 5 mg Ondansetron HCl (Zofran Inj*) 4 mg IV Q6H PRN PRN Reason: NAUSEA Valsartan (Diovan Tab*) 20 mg PO DAILY [facility] Last Admin: 05/30/18 08:30 Dose: 20 mg Vital Signs - 8 hr 05/30/18 05/30/18 05/30/18 05:37 07:45 08:00 Temperature 98.2 F Pulse Rate 73 70 Respiratory 18 18 Rate Blood Pressure 141/63 162/65 (mmHg) O2 Sat by Pulse 99 Oximetry 05/30/18 11:09 Temperature 97.5 F Pulse Rate 69 Respiratory 14 Rate Blood Pressure 164/77 (mmHg) O2 Sat by Pulse 98 Oximetry Oxygen Devices in Use Now: None Appearance: Alert, NAD Eyes: No Scleral Icterus, PERRLA Ears/Nose/Mouth/Throat: NL Teeth, Lips, Gums Neck: NL Appearance and Movements; NL JVP, Trachea Midline Respiratory: Symmetrical Chest Expansion and Respiratory Effort, - - crackles at bases Cardiovascular: No Edema, - - afib on tele with PACs and PVCs Extremities: No Edema Skin: No Rash or Ulcers Neurological: Alert and Oriented x 3 Nutrition: Taking PO's Result Diagrams: 05/30/18 07:06 05/30/18 07:06 Microbiology and Other Data: Microbiology 05/28/18 22:55 Urine Culture - Final Urine Diagnostic Imaging: ECHO CONCLUSIONS: There is global hypokinesis of the left ventricle with minor regional variation. The estimated ejection fraction is 20-25%. The left atrium is severely dilated. The right ventricle is mildly dilated. The right atrial cavity size is severely dilated. The bubble study is negative. Systolic excursion of the aortic valve cusps is reduced. There is a trace of aortic regurgitation. There is mild aortic stenosis. There is moderate to severe mitral regurgitation. Pulmonary vein flow reversal is present c/w severe MR. There is severe tricuspid regurgitation. There is evidence of moderate pulmonary hypertension. There is mild pulmonic regurgitation. Compared to 07/2015, the LV function has decreased from 45% to 20-25%, the MR has increased from mild, the TR has increased from moderate/severe, and the mild is new. MRI BRAIN: Patient Name: ANÍBAL YANEZ Medical Record#: [id number] Ordering Physician: Jose Guadalupe Moore [employer] Acct.#: [id number] : 1930 Age: 87 Sex: F Location: [address] [place] [address] MEDICAL/TELEMETRY Exam Date: 05/29/18 011 ADM Status: ADM IN Order Information: MRI BRAIN W/O Accession Number: [id number] CPT: 81037 HISTORY: CVA COMPARISONS: Head CT dated May 28, including, MRI of the brain dated August 04, 2015 TECHNIQUE: The following sequences were obtained of the head: Sagittal T1- weighted images, axial T2-weighted images, axial FLAIR images, axial susceptibility weighted images, axial T1-weighted images. Additionally, axial diffusion-weighted images were obtained with calculated apparent diffusion coefficients. FINDINGS: HEMORRHAGE/INFARCT: There is no hemorrhage or acute infarct. MASSES/SHIFT: There is no mass or shift. EXTRA-AXIAL SPACES/MENINGES: There are no extra-axial fluid collections. SULCI AND VENTRICLES: There is diffuse and proportional enlargement of the sulci and ventricles. CEREBRUM: There is right frontal encephalomalacia. There is diffuse, confluent elevated T2/FLAIR signal in the periventricular and subcortical white matter, with chronic infarcts of the left pearce radiata. BRAINSTEM: There are no focal parenchymal abnormalities. CEREBELLUM: There are no focal parenchymal abnormalities. The cerebellar tonsils are normal in size and position. SELLA: The sella is normal. PINEAL: The pineal region is clear. CP ANGLE/TEMPORAL BONES: The labyrinthine structures are grossly normal. VESSELS: Normal flow-voids are noted within the visualized vertebral vasculature. DIFFUSION ABNORMALITIES: There are no diffusion abnormalities. PARANASAL SINUSES/MASTOIDS: The paranasal sinuses are clear. ORBITS: The orbits are unremarkable. BONES AND SOFT TISSUE: No bone or soft tissue abnormalities are noted. OTHER: None IMPRESSION: 1. CHRONIC SMALL VESSEL ISCHEMIC CHANGES WITH EVIDENCE OF PREVIOUS INFARCT. 2. NO RESTRICTED DIFFUSION TO SUGGEST ACUTE INFARCT. <Electronically signed by Jerry Clark MD in [place]> 05/29/181045 Dictated By: Jerry Clark MD Dictated Date/Time: 05/29/181045 Transcribed Date/Time: 05/29/181043 1 of 2 Assess/Plan/Problems-Billing Assessment: This is an 87 year old female with history of CAD, CABG, afib, CVAs and HTN that presented to the ER with a complaint of legs giving out and an inability to ambulate, prompting her to use her medic alert, found to have acute neurologic deficits with bilateral dismetria in ER with inability to ambulate. Code Tong called, no acute CVA on CT scan. Admitted for r/o neuro vs cardiac event with noted rising troponins and greatly diminished EF/cardiomyopathy and valvular changes. - Patient Problems (1) Gait abnormality Code(s): R26.9 - UNSPECIFIED ABNORMALITIES OF GAIT AND MOBILITY SNOMED Code(s) : 37070596 Comment: - MRI as above, symptoms do not correlate with a neurologic event - Given constellation of cardiac history, non-adherence to treatment recommendations in the past and now, and new findings on ECHO above, this issue likely be new arrhythmia vs. advancing CAD with severe cardiomyopathy - PT eval (2) Elevated troponin Code(s): R74.8 - ABNORMAL LEVELS OF OTHER SERUM ENZYMES SNOMED Code(s): 786068586 Comment: - Denies chest pain, no SOB - Trops 0.04/0.04/0.08/0.12 - Will start AC with lovenox if patient ammenable (3) Atrial fibrillation Code(s): I48.91 - UNSPECIFIED ATRIAL FIBRILLATION SNOMED Code(s): 34441918 Comment: - Initiating AC with lovenox - Currently rate controlled (4) CAD (coronary artery disease) Code(s): I25.10 - ATHSCL HEART DISEASE OF [place] CORONARY ARTERY W/O ANG PCTRS SNOMED Code(s): 19840536 Comment: - CABG in 2005 - Continue ASA - Will need further eval with cath (5) HTN (hypertension) Code(s): I10 - ESSENTIAL (PRIMARY) HYPERTENSION SNOMED Code(s): 03279633 Comment: - Remains high, patient not taking meds at home - Hydralazine PRN and diovan (6) Hx of three vessel coronary artery bypass Code(s): Z95.1 - PRESENCE OF AORTOCORONARY BYPASS GRAFT SNOMED Code(s): 098710400 Comment: - Plan for transfer to [facility] for further evaluation and recommendations (7) Patient is full code Code(s): Z78.9 - OTHER SPECIFIED HEALTH STATUS SNOMED Code(s): 237589511 Status and Disposition: After much discussion, patient and her son are agreeable to continuing with treatment, additional diagnostics and transfer to [facility] if accepted for higher level of care. Time spent: >60minutes face to face, evaluating chart and history and coordinated with cardiology. Dr. Fall to coordinate and obtain accepting at [facility].
[2018-05-30] MEDS: Enoxaparin(*) 60 MG/0.6 ML SYR SUBCUT SCH (14:35)
--- NOTE | 2018-05-30 19:37 | CONS ---
CC: Dr. Latrell Barrios; Dr. Breanna Isabel; Hospitalist Service CONSULTATION REPORT + TRANSFER SUMMARY DATE OF CONSULTATION: 05/30/18 REASON FOR CONSULTATION: Elevated troponins. CHIEF COMPLAINT: History of falling. HISTORY OF PRESENT ILLNESS: The patient is an 87-year-old patient followed by Dr. Latrell Barrios with known atherosclerotic heart disease and a history of bypass surgery (2005). Additionally, the patient has chronic AFib. The patient has not been on anticoagulation since she had a GI bleed several years ago. The patient has fallen in the past and required a hip repair from a fall. Currently, the patient is residing at [facility], an assisted living facility where she has resided since her two years ago. She is fairly independent, ambulates on her own and she stated she was doing some laundry, got a bite to eat and was taking the tray back to the kitchen and ended up on the ground. She does not recall events of the fall. Her son states the fall was not witnessed. The patient denies any recollection of feeling dizzy, lightheaded, palpitations, racing of the heart nor does she recall any history of tripping or anything about the fall. 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 In the emergency department, she was having some trouble with her gait and [id number]. Imaging studies done to date has not been consistent with an acute stroke. An echocardiogram was done yesterday showing severe left ventricular dysfunction with an ejection fraction of 20% to 25% and lab work revealed elevation in troponins. The patient denies any chest pain recently or currently. She denies orthopnea or PND but admits that for her last two years since her , her energy level has been lower. The patient's son was present with her and concurred that he thinks his mother' s health has declined since his father . The patient has seen by Dr. Barrios intermittently for years and saw him in March of this year. Discussions regarding resuming anticoagulation for her AFib and Watchman device were discussed. Discussions regarding medical management of her elevated blood pressure were discussed (170/100) and discussions regarding initiation of cholesterol lowering medications were discussed and she did not want to pursue any of these avenue at that time and according to Dr. Barrios, she did not want to follow up on any imaging study such as updated echo at that time. Dr. Barrios read the patient's echo yesterday and talked on the phone with the patient and her son and he documents discussing with our magnetic tape composer operator, Dr. Macias. After extensive discussion between Dr. Barrios with the patient and her son, Dr. Barrios recommended cardiac catheterization at a tertiary medical center. At the time I saw the patient and her son, they had now discussed this option/ plan extensively with multiple family members and she is amenable and would like to go [facility], where she has family and where she had her prior surgery. Currently, again, the patient denies chest pain, pressure, heaviness. She denies orthopnea or PND. She denies palpitations, racing, or fluttering in the heart. PAST MEDICAL HISTORY: The patient has a past medical history of: 1. Coronary artery disease, status post bypass surgery 2005, [facility] with a HSU to the LAD, saphenous vein graft to the OM and saphenous vein graft to the right coronary artery. 2. Atrial septal defect, status post ASD repair, 2005. 3. Chronic atrial fibrillation, no longer on anticoagulation since GI bleed in 2015. 4. Recurrent falling. 5. Ischemic cardiomyopathy, 2014, ejection fraction 45%. 20-25% this admission. 6. Tricuspid insufficiency, severe in 2014. 7. Clostridium difficile (postop knee replacement 2002). 8. Hypertension. 9. 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 PAST SURGICAL HISTORY: Includes: 1. Bypass surgery in 2005. 2. Knee replacement. 3. Right hip pinning. 4. Lens implantation. CURRENT INPATIENT MEDICATIONS: Include: 1. Tylenol p.r.n. 2. Aspirin 325 mg a day. 3. Lovenox. 4. Hydralazine 5 mg IV p.r.n. 5. Zofran p.r.n. 6. Diovan 20 mg a day. She has undergone magnesium and potassium replacement. ALLERGIES AND INTOLERANCE: Include MORPHINE, ATORVASTATIN, SIMVASTATIN, NIACIN , VALSARTAN, RAMIPRIL, LEVOFLOXACIN, and AMLODIPINE. SOCIAL HISTORY: The patient is a former smoker. Rare to occasionally alcohol use. She is , lives at [facility] and her son is supportive. FAMILY HISTORY: Significant for coronary artery disease with her father and her mother had a history of type 1 diabetes. REVIEW OF SYSTEMS: See history of present illness. The patient denies any recent fevers, chills, sweats. No change in bowel or bladder habits. No acute changes in functional ability but for two years she has felt less energetic than she did prior. She son states she was extremely energetic person until two years ago. She denies orthopnea, PND, coughing. No postnasal drip. No palpations or racing of the heart. No recent change in bowel or bladder habits. No hematuria, dysuria. Occasional constipation but not currently and no diarrhea. Notes recent swelling of her legs. All other 14-point review of systems is negative. PHYSICAL EXAMINATION: On exam, the patient is 5 feet 6 inches, weighs 121 pounds with a BMI of 19.6. Vital signs on arrival to the emergency room, , blood pressure 166/125, pulse of 77, respiratory rate of 20, oxygen saturation on room air 98%, and temperature 98 degrees Fahrenheit. Currently, the patient's blood pressure is 164/77; pulse of 69, irregularly irregular; oxygen saturation 98% and she is afebrile. General Appearance: Thin elderly woman, lying in bed with two pillows, in no acute distress. Son at her bedside. Psychologically, pleasant and cooperative. Neurologically, awake, alert, oriented to person, place. I did not evaluate for time. I did not do a formal evaluation but she answers questions appropriately. Speech is articulate. Comprehension is good and she follows commands well, on a bed exam. Skin: Warm, dry. Midline sternotomy scar well healed. No cyanosis. HEENT: Pupils were equal and round. Mucous membranes were moist. Neck without appreciable increase in JVP. Respirations were clear. No appreciable wheezing, rales, or rhonchi. Coronary: S1, S2. Irregularly, irregular without murmurs appreciated. Abdomen: Soft, nontender. Active bowel sounds. Lower extremities were free of edema and warm. LABORATORY DATA/DIAGNOSTIC STUDIES: A 12-lead ECG on admission, 05/28/18, revealed atrial fibrillation with a right bundle branch block and a ventricular rate of [address] segments unremarkable. When compared to her EKG of June 2017, there has been no significant change and EKG 05/29/18 is without significant change. Echocardiogram from 05/29/18 showed an ejection fraction of 20% to 25%, mild right ventricular dilatation, mild aortic stenosis, moderate to severe mitral insufficiency, severe tricuspid insufficiency and PA pressure estimated at 49 mmHg, moderately elevated. White count 4.4, hemoglobin 12.6, hematocrit 37, platelets 135. INR 1.06, PTT 30. Sodium 138, potassium 3.2, chloride 106, bicarb 24, BUN 15, creatinine 0.86. Total bili 1.4, AST 25, ALT 13. Troponins on arrival: 1. 0.04. 2. 0.04. 3. 0.08. 4. 0.12. Total cholesterol 115, triglycerides 64, LDL cholesterol 34, HDL cholesterol calculated at 69. Urinalysis was esterase negative, nitrite negative. Positive for bacteria and protein. Urine culture no growth. IMAGIN. Brain CT from 05/28/18, no acute infarct, old right frontal lobe infarct, atrophy and moderate chronic small vessel disease. 2. Chest x-ray from 05/28/18, postsurgical changes, no acute pulmonary disease. 3. CT angiogram of the head 05/28/18, 55% stenosis with calcific arthrosclerosis in the carotid bulbs bilaterally. 4. MRI of the brain from 05/29/18 shows chronic small vessel disease, old infarct and no evidence of acute infarct. 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 The patient has been disinclined towards medical or interventional management in the past. The patient now presents with an unwitnessed fall and is found to have a severe cardiomyopathy, significantly decreased from 2015, worsening mitral insufficiency, persistent severe tricuspid insufficiency and elevated troponins. In terms of the patient's presentation with the fall, studies are no longer pointing in the direction of an acute neurological event. The patient is at significant risk for ventricular dysrhythmias, V-tach which could lead to a fall , although she is also at risk for falling related to volume issues at her age and with prior orthopedic issues, she is at risk for mechanical falls. Based on Dr. Barrios's recommendations and follow up discussions today with me, the current recommendation is transfer to a tertiary care center and the patient and her son are amenable. The patient is now amenable to optimization of medications and Lovenox had been started as well as Valsartan. Additional medications to optimize medical management of her severe cardiomyopathy, atrial fibrillation, and valvular heart disease would be addition of a beta-juan as well. I think, we will need to start gently either Coreg or long acting metoprolol. Down the road, if her ejection fraction remains low, she may be a candidate for Entreso. If the patient were amenable and if her EF remains depressed an ICD would be indicated. In terms of dyslipidemia and plaques, her lipid panel actually looks good, but based on prior statin intolerance I will not initiate a statin at this time. I will discuss transfer options with the cardiology team at [facility]. Thank you for allowing me to assist in this nice woman's care. [id number]/[facility] #: [id number] LAURY
[2018-05-31] MEDS: Enoxaparin(*) 60 MG/0.6 ML SYR SUBCUT SCH (00:58)
[2018-05-31 06:57] LABS: ABS Basophils 0 10^3/ul (0-0.2); ABS Eosinophils 0.1 10^3/ul (0-0.6); ABS Lymphocytes 1.5 10^3/ul (1.0-4.8); ABS Monocytes 0.6 10^3/ul (0-0.8); ABS Neutrophils 2.3 10^3/ul (1.5-7.7); ABS Nucleated RBC 0 10^3/ul; Hematocrit 37 % (35-47); Hemoglobin 12.7 g/dl (12.0-16.0); Lymphocyte % 32.2 % (25-47); Mean Corpuscular HGB Conc 34 g/dl (31-36); Mean Corpuscular Hemoglobin 31 pg (27-31); Mean Corpuscular Volume 89 fL (80-97); Mean Platelet Volume 8.8 um3 (7.4-10.4); Nucleated Red Blood Cells % 0.1; Platelet Count 141 10^3/ul (150-450); Red Blood Count 4.17 10^6/ul (4.00-5.40); Red Cell Distribution Width 15 % (10.5-15); White Blood Count 4.6 10^3/ul (3.5-10.8)
[2018-05-31 06:58] LABS: INR 1.17 (0.77-1.02)
[2018-05-31] MEDS: Aspirin TAB* 325 MG PO SCH (08:24)
[2018-05-31] MEDS: Valsartan TAB* 40 MG PO SCH (08:24)
[2018-05-31 11:38] VITALS: BP 148/75
--- NOTE | 2018-05-31 11:56 | TRS ---
CC: Dr. Breanna Isabel; Dr. Latrell Barrios; Dr. Junior Warner; Dr. Eladia Fall* DATE OF ADMISSION: 05/29/2018. DATE OF TRANSFER: 05/31/2018. ATTENDING PHYSICIAN FOR THIS ADMISSION: Dr. Raheel Allen. MY ATTENDING PHYSICIAN FOR TODAY: Dr. Raheel Allen* (dictated by Debra Taylor NP). PRIMARY CARE PHYSICIAN: Dr. Breanna Isabel. CONSULTING PHYSICIANS: Dr. Junior Warner from Neurology; Dr. Eladia Fall, Cardiology. CHIEF COMPLAINT: Weakness of the lower extremities and inability to ambulate. HOSPITAL COURSE: This is an 87-year-old female patient who does have a strong cardiac history, including coronary artery disease and coronary artery bypass graft surgery in 2005 who was at home and in her usual state of health when she states that she, for some unknown reason, felt like her legs gave out from underneath her and she fell. The patient was unable to stand up and ambulate after that and pressed her Life Alert alarm to have EMS services come and bring her to the emergency room. Her past medical history again is significant coronary artery disease, status post CABG, atrial fibrillation, hypertension, and history of multiple CVA's. The patient also has a history of GI bleeding several years ago while she was on Xarelto for anticoagulation for her atrial fibrillation. Of significant note, however, the patient does see Dr. Latrell Barrios for cardiology, who she had seen approximately a month or two ago, who has persistently recommended that the patient continue on with anticoagulation because of her high risk of stroke, also because of her coronary artery disease. The patient should have been having follow-up stress test and other cardiac testing; however, the patient has been resistant to starting any new treatment. She refused to take blood pressure medications. She refused to go for additional testing and refused to have any further cardiac diagnostics. It became difficulty, I think, for Cardiology to treat this patient in this scenario; however, now that she was admitted to the emergency department, she was showing some neurologic deficits. It was thought that perhaps she was having another stroke secondary to her atrial fibrillation and lack of anticoagulation. During her time in the ER, she was again unable to ambulate and she had some bilateral dysmetria. Between the ataxic gait and the dysmetria, a code snow was called. Neurology saw the patient. She was sent for a CAT scan of the head which did not show an acute infarct. It did show some old encephalomalacia and old infarcts, but no new findings. Patient had no changes on her EKG at that time; however, she did have a modest bump in her troponin initially at her admission. Neurology recommended an echo and MRI of her head and during that time her troponins continued to trend up. Initial troponin was 0.04, 0.04, 0.08, 0.12, and then this morning 0.07. She is now trending downward. I had a lengthy discussion with Dr. Barrios, the patient, and her son regarding the findings of her echocardiogram and her MRI. Her MRI did not show any acute infarct, so she did not have a new CVA. However, her echocardiogram showed many significant changes from her previous which was done in 2014. Echo during this hospitalization shows mild concentric left ventricular hypertrophy; global hypokinesis of the left ventricle with minor regional variation; estimated ejection fraction of 20 to 25 percent, down from 45 percent three years ago; left atrium is severely dilated; right ventricle is mildly dilated; the right atrial cavity is severely dilated; bubble study was negative; systolic excursion of the aortic valve cusps is reduced; there is a trace of aortic regurg; mild aortic stenosis; moderate to severe mitral regurg; severe tricuspid regurg; moderate pulmonary hypertension; mild pulmonic regurgitation. In comparison to her 2015 study, her left ventricular function has greatly decreased, her mitral regurg has increased, and tricuspid regurg is now moderate to severe with new aortic stenosis. Given these findings, we had a serious discussion with the patient because she was again refusing to be treated. We did discuss the possibility of a life vest and palliative care at home to which she was not interested. Being that she had her cardiac surgery in 2005 at [facility], we felt that at this point given that she is too high risk for a cardiac catheterization in this facility, that it would be warranted to send her to [facility] who has the capacity for advanced heart failure clinic and high risk catheterization; also the ability to deal with either implantation of an AICD versus a life vest versus any other ventricular support devices. The patient again initially was reluctant and after having discussed it with her son, agreed to be transferred to [facility]. On 05/30/2018, Dr. Eladia Fall made arrangements for the patient to be transferred to [place] under the acceptance of Dr. Antonette Kaiser. [place] [id number] and be transported this afternoon. REVIEW OF SYSTEMS: Today, she denies any fever, fatigue, or chills. No headache, no chest pain, no shortness of breath, no abdominal pain, no urinary complaints, no bowel complaints. No further complaints noted today. PHYSICAL EXAMINATION: General: The patient is alert, in no acute distress, but has a very flat affect, can be very irritable at times. Vital Signs currently: Blood pressure 152/86, heart rate 71 in A-fib, respiratory rate 16, O2 saturation 99 percent on room air with a temperature of 97.9. Of significant note, she was very hypertensive at admission with systolics in the 180s to 190s and diastolics greater than 100. She was given Hydralazine and started on Diovan. She seems to be responding well, having a modest decrease in her blood pressure now and is remaining asymptomatic. HEENT: The patent is atraumatic, normocephalic. PERRLA with nonicteric sclerae. Neck: Supple, nontender. No JVD noted. There is no carotid bruit auscultated. Cardiovascular: S1, S2 present. Grade 3/6 murmur noted. Rate and rhythm are irregular. She is atrial fibrillation on telemetry. Lungs: Clear bilaterally at the apices with some modest crackling at the bases. No wheezing or rhonchi noted. Abdomen: Soft, nontender, nondistended. Positive bowel sounds all four quadrants. : Deferred. Musculoskeletal: There is no clubbing, no cyanosis, no edema. She has +2 distal pulses palpable. She does not have any bipedal edema. She has no current neurologic deficits noted. Her extra-ocular movements are intact. Cranial nerves I through X are also grossly intact. Psychiatric: She is appropriate, sometimes uncooperative and again with a very flat affect. LABORATORY DATA: WBC 4.6, RBC 4.17, hemoglobin 12.7, hematocrit 37, platelets 141; sodium 135, potassium 3.8, chloride 104, CO2 25, BUN 21, creatinine 1.17, GFR 44, glucose 80, hemoglobin A1c is 5.7, calcium 9.1, bilirubin 1.10, AST 19, ALT 18, alk phos 18, troponins as stated above. Protein 6.7, albumin 3.4, globulin 3.3, triglycerides 64, cholesterol 115, total LDL 69, HDL 33.5, B12 722 , folate 11.78. Urinalysis shows cloudy yellow urine, negative for nitrates, negative for blood, negative for ketones, mild proteins at 1+, 1+ bacteria likely representing an asymptomatic bacteriuria. IMAGING: Patient's EKG shows regular sinus rhythm with no acute ST segment changes. EKG shows atrial fibrillation with a ventricular rate of 75 to 101, also with a right bundle branch block. This was no significant change since 07/2018. Thoracic echo as described earlier. CT of the brain at admission showed no new evidence or gross acute infarct, no mass effect and no hemorrhage; an old right frontal lobe infarct; atrophy and moderate chronic small vessel ischemic changes. CTA imaging showed less than 50 percent degree stenosis of the bilateral carotid bulbs and there was no abrupt filling defects or other acute abnormalities in the cervical or intracerebral arteries. MRI of the brain showed chronic small vessel ischemic changes with evidence of previous infarct; no restricted diffusion to suggest acute infarct; she does have right frontal encephalomalacia and no further abnormal findings. DISCHARGE DIAGNOSES: 1. Ischemic cardiomyopathy, severe with an ejection fraction of 20 to 25 percent. 2. Coronary artery disease, status post CABG in 2005. 3. Chronic atrial fibrillation, now on anticoagulation. 4. Osteoarthritis. 5. Accelerated hypertension. 6. History of past CVA's. DISCHARGE MEDICATIONS: 1. Tylenol 650 mg q.4 hours as needed. 2. Aspirin 325 mg a day. 3. Therapeutic dose of Lovenox at 55 mg q.12 hours. 4. Hydralazine 5 mg IV as needed. 5. Zofran as needed. 6. Diovan 20 mg daily. Also of note, the patient did have some electrolyte disturbances at admission. Both potassium and magnesium have been repleted and are currently stable. DISPOSITION: The patient will be transferred to [facility] under the care of Dr. Antonette Kaiser as stated above. I have had a discussion with her son Will and also her son Fidel. In terms of the transfer, they are in agreement. The patient has capacity and has consented to be transferred for further evaluation at [facility] today. FOLLOW-UP: Depending on the course at [facility], she should follow-up with Dr. Breanna Isabel, her primary care physician, after discharge from [place] and also Dr. Latrell Barrios, her primary junior php developer. DEBRA TAYLOR NP [id number]/[facility] #: [id number]/[facility] #: [id number] LAURY
--- NOTE | 2018-05-31 12:12 | TRS ---
CC: Dr. Breanna Isabel; Dr. Latrell Barrios; Dr. Junior Warner; Dr. Eladia Fall Continuation.... EKG shows atrial fibrillation with a ventricular rate of 75 to 101, also with a right bundle branch b lock. This was no significant change since 05/28/2018. Thoracic echo as described earlier. CT of the brain at admission showed no new evidence or gross acute infarct, no mass effect and no hem orrhage; an old right frontal lobe infarct; atrophy and moderate chronic small vessel ischemic change s. CTA imaging showed less than 50 percent degree stenosis of the bilateral carotid bulbs and there was no abrupt filling defects or other acute abnormalities in the cervical or intracerebral arteries. MRI of the brain showed chronic small vessel ischemic changes with evidence of previous infarct; no restricted diffusion to suggest acute infarct; she does have right frontal encephalomalacia and no fu rther abnormal findings. DISCHARGE DIAGNOSES: 1. Ischemic cardiomyopathy, severe with an ejection fraction of 20 to 25 percent. 2. Coronary artery disease, status post CABG in 2005. 3. Chronic atrial fibrillation, now on anticoagulation. 4. Osteoarthritis. 5. Accelerated hypertension. 6. History of past CVA's. DISCHARGE MEDICATIONS: 1. Tylenol 650 mg q.4 hours as needed. 2. Aspirin 325 mg a day. 3. Therapeutic dose of Lovenox at 55 mg q.12 hours. 4. Hydralazine 5 mg IV as needed. 5. Zofran as needed. 6. Diovan 20 mg daily. Also of note, the patient did have some electrolyte disturbances at admission. Both potassium and mag nesium have been repleted and are currently stable. DISPOSITION: The patient will be transferred to [facility] under the care of Dr. Antonette Hong as stated above. I have had a discussion with her son Will and also her son Fidel. In term s of the transfer, they are in agreement. The patient has capacity and has consented to be transferre d for further evaluation at [facility] today. FOLLOW-UP: Depending on the course at [facility], she should follow-up with Dr. Breanna Isabel, h primary care physician, after discharge from [place] and also Dr. Latrell Barrios, her primary card iologist. DEBRA SMITH, AUTOMOTIVE PARTS SALESPERSON [id number]/[facility] #: [id number]
== END 2018-05-31 12:19 | disposition short-term general hospital (02) | DRG 948 ==
LOC: ED 21:36 → MEDTELE 05-29 01:06
PROVIDERS: ADMIT Hospitalist; ATTEND Internal Medicine
DX: R53.1 Weakness (principal); I25.10 Atherosclerotic heart disease of native coronary artery without angina pectoris; I10 Essential (primary) hypertension; F32.9 Major depressive disorder, single episode, unspecified; M19.90 Unspecified osteoarthritis, unspecified site; R29.702 NIHSS score 2; Z96.652 Presence of left artificial knee joint; E03.9 Hypothyroidism, unspecified; W01.0XXA Fall on same level from slipping, tripping and stumbling without subsequent striking against object, initial encounter; R27.0 Ataxia, unspecified; Z96.1 Presence of intraocular lens; I45.10 Unspecified right bundle-branch block; G93.89 Other specified disorders of brain; I65.23 Occlusion and stenosis of bilateral carotid arteries; R74.8 Abnormal levels of other serum enzymes; I48.2 Chronic atrial fibrillation; I25.5 Ischemic cardiomyopathy; I08.3 Combined rheumatic disorders of mitral, aortic and tricuspid valves; I27.20 Pulmonary hypertension, unspecified; E87.8 Other disorders of electrolyte and fluid balance, not elsewhere classified; Z88.1 Allergy status to other antibiotic agents; Z88.8 Allergy status to other drugs, medicaments and biological substances; Z82.49 Family history of ischemic heart disease and other diseases of the circulatory system; Z83.3 Family history of diabetes mellitus; Z80.3 Family history of malignant neoplasm of breast; Z95.1 Presence of aortocoronary bypass graft; Z88.5 Allergy status to narcotic agent; Z72.89 Other problems related to lifestyle; Z87.891 Personal history of nicotine dependence; Z86.73 Personal history of transient ischemic attack (TIA), and cerebral infarction without residual deficits; Z91.81 History of falling; Z79.82 Long term (current) use of aspirin; Y92.009 Unspecified place in unspecified non-institutional (private) residence as the place of occurrence of the external cause
CPT/HCPCS: 36415; 70450; 70496; 70498; 70551; 71045; 80053; 80061; 81003; 81015; 82550; 82607; 82746; 83036; 83605; 83735; 84484; 85025; 85610; 85730; 86850; 86900; 86901; 87086; 93005; 93306; 99285; A9270-GY; G8978-GP-CI; G8979-GP-CH; J0360; J1650; J3475; Q9967

== ENCOUNTER 2018-08-12 13:55 | Emergency (ER) | payer MEDICARE ==
--- NOTE | 2018-08-12 14:12 | ED ---
Lower Extremity - HPI Summary HPI Summary: A 87 y/o female MIKAELA presents to ED c/o bilateral knee pain (left knee pain more than right). As per triage, "pt from [facility]. states her knees gave out and she fell, hit bilat knees on ground and is having pain. denies CP, dizziness, SOB". According to the patient, she was moving from a chair to her bed when her left knee gave out. Currently, both knees are in pain and she is able to ambulance a little, but not by much. She normally uses 4-wheeled walker. She denies any head/neck injury or back pain. 1605: As per son, she told the MD nothing about her tremors of left arm, slurred speech, and uncooperative left leg this afternoon. He stated that she told him that her left leg was not cooperative when she was trying to move it. She didnt want to tell anyone about them because she does not want to be in [facility] [place], or undergo any scans/medications. 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 He said that she is going to tell the MD that her doctor took her off of her BP medications, but the son stated that she does not like taking medications, as she is a holistic person. Although he has not talked to Dr. Barrios recently. She c/o all blood pressure medications making her dizzy and shaky, but is inconsistent with her stories. She is a terrible patient and will drive a doctor nuts. She was recently in [place] when she fell at home in which she told her son that something is not right, and even though the son advised ambulance, she denied it. She also spent 2 days at [facility] [place] in addition to [place], but nothing was found. 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 She doesnt have much time left. The son does not know what to do as it is frustrating for him. Patient did sign a DNR in the past. He stated that she lives at an [facility] ([employer] that does pretty well for her, but it is not assisted living. Family lives several hours away. Patient lost a lot of weight. Her quality of life is sitting in a room watching CNN with very few visitors. She has no mobility as she has other people grabbing stuff for her. 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 At 1613: The patient has a pulse of 80 BPM, O2 saturation of 98% and blood pressure of 198/110. The patient stated that she was feeling fine. Scans and other symptoms such as her tremors and dizziness were discussed. Patient would like to go home. Patient denies more scans and blood work for further evaluation. - History of Current Complaint Chief Complaint: EDExtremityLower Stated Complaint: KNEE PAIN Time Seen by Provider: 08/12/18 14:04 Hx Obtained From: Patient Mechanism Of Injury: Fall From A Standing Position Onset of Pain: Post Accident Onset/Duration: Hours Severity Initially: Moderate Severity Currently: Moderate Pain Intensity: 5 Pain Scale Used: 0-10 Numeric Timing: Constant Location: Is Discrete @ - BILATERAL KNEE Character Of Pain: Unable To Describe Associated Signs And Symptoms: Positive: Negative Aggravating Factor(s): Standing, Ambulation Alleviating Factor(s): Rest Able to Bear Weight: No - Allergies/Home Medications Allergies/Adverse Reactions: Allergies Allergy/AdvReac Type Severity Reaction Status Date / Time morphine Allergy Intermediate Shortness Verified 08/12/18 14:12 of Breath atorvastatin Allergy Mild Muscle Ache Verified 08/12/18 14:12 simvastatin Allergy Mild Muscle Ache Verified 08/12/18 14:12 amlodipine Allergy See Comment Verified 08/12/18 14:12 levofloxacin [From Levaquin] AdvReac Intermediate GI Upset Verified 08/12/18 14: 12 niacin AdvReac Intermediate GI Upset Verified 08/12/18 14:12 ramipril AdvReac Mild Coughing Verified 08/12/18 14:12 valsartan AdvReac Mild Fatigue Verified 08/12/18 14:12 PMH/Surg Hx/FS Hx/Imm Hx Endocrine/Hematology History: Reports: Hx Thyroid Disease - hypothyroidism Cardiovascular History: Reports: Hx Atrial Fibrillation, Hx Coronary Artery Disease, Hx Hypertension, Other Cardiovascular Problems/Disorders - A-fib Denies: Hx Pacemaker/ICD Musculoskeletal History: Reports: 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, per pt' s physician Denies: Hx Back Problems Sensory History: Reports: Hx Contacts or Glasses Denies: Hx Hearing Aid Opthamlomology History: Reports: Hx Contacts or Glasses Neurological History: Reports: Other Neuro Impairments/Disorders - occassional confusion & forgetfulness Psychiatric History: Reports: Hx Depression Denies: Hx Panic Disorder - Surgical History Surgery Procedure, Year, and Place: CABG 2006, TOTAL KNEE REPLACEMENT (LEFT), HERNIA, RIGHT HIP, LENSE REPLACEMENT IN EYES, TONSILS Hx Anesthesia Reactions: No Infectious Disease History: No Infectious Disease History: Reports: Hx Clostridium Difficile - 8 years ago Denies: Traveled Outside the [place] in Last 30 Days - Family History Known Family History: Positive: Cardiac Disease, Diabetes, Other - breast cancer - Social History Alcohol Use: Daily Alcohol Amount: 1 drink a day Substance Use Type: Reports: None Smoking Status (MU): Former Smoker Review of Systems Negative: Fever Negative: Chest Pain Negative: Shortness Of Breath Positive: Other - POSITIVE: BILATERAL KNEE PAIN Neurological: Other - NEGATIVE: DIZZINESS All Other Systems Reviewed And Are Negative: Yes Physical Exam - Summary Physical Exam Summary: VITAL SIGNS: Reviewed. GENERAL: Patient is a well-developed and nourished female who is lying comfortable in the stretcher. Patient is not in any acute respiratory distress. HEAD AND FACE: No signs of trauma. No ecchymosis, hematomas or skull depressions. No sinus tenderness. EYES: PERRLA, EOMI x 2, No injected conjunctiva, no nystagmus. EARS: Hearing grossly intact. Ear canals and tympanic membranes are within normal limits. MOUTH: Oropharynx within normal limits. NECK: Supple, trachea is midline, no adenopathy, no JVD, no carotid bruit, no c- spine tenderness, neck with full ROM. CHEST: Symmetric, no tenderness at palpation LUNGS: Clear to auscultation bilaterally. No wheezing or crackles. CVS: Regular rate and rhythm, S1 and S2 present, no murmurs or gallops appreciated. ABDOMEN: Soft, non-tender. No signs of distention. No rebound no guarding, and no masses palpated. Bowel sounds are normal. EXTREMITIES: Good ROM with tenderness in knees and in all major joints, no edema , no cyanosis or clubbing. K NEURO: Alert and oriented x 3. No acute neurological deficits. Speech is normal and follows commands. SKIN: Dry and warm. Slight hematoma in left knee Triage Information Reviewed: Yes Vital Signs On Initial Exam: Initial Vitals Temp Pulse Resp BP Pulse Ox 97.6 F 76 15 186/97 99 08/12/18 14:04 08/12/18 14:04 08/12/18 14:04 08/12/18 14:04 08/12/18 14:04 Vital Signs Reviewed: Yes Diagnostics - Vital Signs Vital Signs Temp Pulse Resp BP Pulse Ox 08/12/18 14:04 97.6 F 76 15 186/97 99 - Laboratory Lab Statement: Any lab studies that have been ordered have been reviewed, and results considered in the medical decision making process. - Radiology KNEE XR Radiology Interpretation Completed By: Radiologist - 1. Anatomic alignment of left knee prosthesis without evidence of loosening or fracture. 2. Incidentally noted is advanced calcified atherosclerosis of the visualized SFA, popliteal and infrapopliteal arteries. Please correlate to signs or symptoms of lower extremity arterial insufficiency. If the patient's symptoms persist, follow-up imaging is recommended. ED PHYSICIAN REVIEWED THIS RADIOLOGY REPORT. Lower Extremity Course/Dx - Course Assessment/Plan: This patient is a 87-year-old female who presents to the emergency department via ambulance with a chief complaint of having left knee pain. She reports that she was transferring from a chair to the couch and she lost her balance when her knees gave out and she fell. She denies any head trauma or neck trauma. Denies any back pain or hip pain. The patient reports that she fell in both knees but the pain is in the left knee. Patient has past medical history significant for dilated cardiomyopathy, atrial fibrillation, hypertension, CAD, coronary artery disease and bypass, anemia, hypothyroidism. Patient's son arrived at ED couple hours later and reports that the home health for the patient reported that the patient had slurred speech and left side weakness. Son was worried that the patient may have had a TIA versus CVA. He also reports that the patient is not adherent to any of the medications and she has history of atrial fibrillation and she denies taking any blood thinners. She also has history of hypertension and she doesn't take the blood pressure medications. I interviewed the patient again and I asked that she should have the scans, blood work and EKG based on slurred speech and the left side weakness and she firmly denied. She reports that she only lost her balance and fell. I asked if I can do a CAT scan of the head and blood work but she firmly declined. The patient's son also has a "this testing is however the patient declined. She also reported that she is not taking medications because she is taking a holiday break. I discussed the case with Dr. Barrios the patient's grain origination specialist and he reports that the patient is here for years she takes only medications that she wants and only when she wants. Again and had a long discussion with the patient and the patient's son for the need to do a CAT scan of the brain and blood work and the patient refused. At this point given the patient's son agrees not to get the workup for stroke or TIA since the patient' s symptoms seems to be back to her normal state. The patient was found to be very hypertensive and she refuses any medications for her blood pressure. After a long discussion with the patient about the benefits and versus risk of taking blood pressure medications she accepted to take carvedilol and spironolactone that she is supposed to take daily. She was also given Eliquis for atrial fibrillation. The patient's son is going to make sure that the patient is going to take her medications as indicated. The patient and the patient's son was instructed to return to the emergency department if the symptoms worsen. They understand and agree. - Diagnoses Provider Diagnoses: Accidental fall, Poorly controlled blood pressure, Knee pain - Physician Notifications Discussed Care Of Patient With: Latrell Barrios Time Discussed With Above Provider: 16:48 Instructed by Provider To: Other - Discussed patient's case and plan. - Critical Care Time Critical Care Time: 75-104 min Discharge - Sign-Out/Discharge Documenting (check all that apply): Patient Departure - DISCHARGE - Discharge Plan Condition: Stable Disposition: HOME Patient Education Materials: Knee Pain (ED) Referrals: Breanna Isabel MD [Primary Care Provider] - 3 Days Latrell Barrios MD [Medical Doctor] - 3 Days Additional Instructions: FOLLOW UP WITH PRIMARY CARE PHYSICIAN IN 2-[address] FOLLOW UP WITH DR. BARRIOS IN 2-3 DAYS. RETURN TO THE ED FOR ANY NEW OR WORSENING SYMPTOMS. FOLLOW UP WITH YOUR PRIMARY CARE PROVIDER WITHIN ONE WEEK FOR HIGH BLOOD PRESSURE NOTED TODAY. - Billing Disposition and Condition Condition: STABLE Disposition: Home - Attestation Statements Document Initiated by Scribe: Yes Documenting Scribe: Andrés Ryder Provider For Whom Scribe is Documenting (Include Credential): Raciel Adam MD Scribe Attestation: IAndrés, scribed for Raciel Adam MD on 08/13/18 at 1136. Scribe Documentation Reviewed: Yes Provider Attestation: The documentation as recorded by the scribe, Andrés Ryder accurately reflects the service I personally performed and the decisions made by me, Raciel Adam MD
--- NOTE | 2018-08-12 15:17 | RAD ---
INDICATION: Left knee pain in a patient with a history of left knee arthroplasty COMPARISON: None TECHNIQUE: 3 view radiograph of the left knee. FINDINGS: The left knee prosthesis is intact and anatomically aligned in the AP and lateral projections. There is no evidence of loosening or fracture. There is no joint effusion. The visualized bones are intact and appropriately aligned. Incidentally noted is advanced calcified atherosclerosis of the distal superficial femoral artery extending into the popliteal artery and the visualized proximal infrapopliteal arteries. IMPRESSION: 1. Anatomic alignment of left knee prosthesis without evidence of loosening or fracture. 2. Incidentally noted is advanced calcified atherosclerosis of the visualized SFA, popliteal and infrapopliteal arteries. Please correlate to signs or symptoms of lower extremity arterial insufficiency. If the patient's symptoms persist, follow-up imaging is recommended.
[2018-08-12] MEDS ORDERED: Spironolactone TAB* 25 MG PO ONE (15:54)
[2018-08-12] MEDS ORDERED: Carvedilol TAB* 6.25 MG PO ONE (15:54)
[2018-08-12] MEDS ORDERED: Apixaban* 2.5 MG TAB PO ONE (17:08)
[2018-08-12 18:08] VITALS: BP 198/98
== END 2018-08-12 18:07 | disposition home or self-care (01) ==
LOC: ED 13:55
DX: M25.562 Pain in left knee (principal); M25.561 Pain in right knee; Z87.891 Personal history of nicotine dependence; I10 Essential (primary) hypertension; I25.10 Atherosclerotic heart disease of native coronary artery without angina pectoris; Z91.81 History of falling
CPT/HCPCS: 99284; A9270-GY

== ENCOUNTER 2019-12-04 08:09 | Emergency (ER) | payer MEDICARE ==
--- OUTSIDE RECORDS SUMMARY | 2019-12-04 08:24 | XMS REPORT | Continuity of Care Document ---
:1930 External Reference #:[id number] Author Name Agnieszka Scanlon N.P. 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 Onset: 11/02/2011 Coronary arteriosclerosis Latrell Barrios M.D. Onset: 11/22/2012 Pure hypercholesterolemia Latrell Barrios M.D. Onset: 11/22/2012 Atrial fibrillation Latrell Barrios M.D. Onset: 11/22/2012 Chronic atrial fibrillation Latrell Barrios M.D. Onset: 08/25/2015 Social History Type Date Description Comments Sex Unknown Tobacco Use Start: Unknown End: Former Cigarette Smoker Pt denies smoking Unknown pipe, cigar, e-cigarettes, or chewing tobacco. Smoking Status Reviewed: 11/21/19 Former Cigarette Smoker Pt denies smoking pipe, cigar, e-cigarettes, or chewing tobacco. ETOH Use Occasionally consumes alcohol Tobacco Use Start: Unknown End: Patient is a former Unknown smoker Recreational Drug Use Denies Drug Use Exercise Type/Frequency Does not exercise Allergies, Adverse Reactions, Alerts Active Allergies Reaction Severity Comments Date Morphine Severe Resp Depression 10/19/2006 Levaquin nausea 11/24/2006 Digoxin nausea 08/17/2007 Niaspan gi upset? 08/17/2007 Altace cough 01/15/2008 Diovan HCT weakness fatigue 05/05/2008 Zocor myalgias 05/05/2008 Lipitor myalgias 07/19/2008 Norvasc not tolerated, d, dd, not not tolerated 08/13/2009 tolerated Diltiazem Nightmares, hallucinations 09/09/2015 Medications Active Medications SIG Qnty Indications Ordering Provider Date Furosemide 1 by mouth x1 14tabs R60.0 Agnieszka Scanlon, 11/21/2019 20mg Tablets then as needed N.P. for 3-5lb weight gain and swelling. Aspirin 1 po qd Latrell Fiore 12/11/2006 81mg Chewtabs Jaylin Barrios Co Q-10 1 po qd as Unknown 100mg Capsules needed Vitamin B Complex 1 po qd as 30tabs Unknown needed Tablets Magnesium 1 po qd as 30tabs Unknown 250mg Tablets needed Levo/Lioth 49.25/0.75ug SR Unknown 1 capsule by mouth every day Carvedilol 1 by mouth twice Unknown 3.125mg a day Tablets Escitalopram Oxalate 1 by mouth every Unknown 5mg day Tablets Immunizations Description No Information Available Vital Signs Date Vital Result Comment 11/21/2019 3:19pm Height 67 inches 5'7" Weight 132.00 lb with shoes Heart Rate 64 /min BP Systolic Sitting 118 mmHg lue reg cuff BP Diastolic Sitting 64 mmHg lue reg cuff BP Systolic Standing 122 mmHg lue reg cuff BP Diastolic Standing 64 mmHg lue reg cuff Respiratory Rate 12 /min BMI (Body Mass Index) 20.7 kg/m2 Ejection Fraction 50-55% echo. 09/26/18 05/07/2019 2:22pm Height 67 inches 5'7" Weight 120.50 lb with shoes Heart Rate 66 /min radial, regular BP Systolic Sitting 182 mmHg LA, reg cuff BP Diastolic Sitting 76 mmHg LA, reg cuff BP Systolic Standing 150 mmHg LA, reg cuff BP Diastolic Standing 80 mmHg LA, reg cuff BP Systolic Lying Down 128 mmHg la repeat sitting BP Diastolic Lying Down 63 mmHg la repeat sitting BMI (Body Mass Index) 18.9 kg/m2 Ejection Fraction 50-55% 09/26/2018 Results Description No Information Available Procedures Date Code Description Status 11/21/2019 50275 EKG Tracing & Interpretation Completed Medical Devices Description No Information Available Encounters Type Date Location Provider Dx Diagnosis Office Visit 11/21/2019 [facility] Agnieszka S. Foster, I42.9 Cardiomyopathy, 3:30p [facility] N[facility] unspecified I34.0 Nonrheumatic mitral (valve) insufficiency I25.10 Athscl heart disease of [place] coronary artery w/o ang pctrs I45.19 Other right bundle-branch block R60.0 Localized edema R53.83 Other fatigue Office Visit 08/19/2019 8:30a [facility] Fawad Zuñiga, L82.1 Other seborrheic MD keratosis Assessments Date Code Description Provider 11/21/2019 I42.9 Cardiomyopathy, unspecified Agnieszka Scanlon, N.P. 11/21/2019 I34.0 Nonrheumatic mitral (valve) insufficiency Agnieszka Scanlon, N.P. 11/21/2019 I25.10 Atherosclerotic heart disease of [place] Agnieszka Scanlon, N.P. coronary artery with 11/21/2019 I45.19 Right bundle branch block Agnieszka Scanlon, N.P. 11/21/2019 R60.0 Localized edema Agnieszka Scanlon, N.P. 11/21/2019 R53.83 Other fatigue Agnieszka Scanlon, N.P. 08/19/2019 L82.1 Other seborrheic keratosis Fawad Zuñiga MD Plan of Treatment Future Appointment(s):12/12/2019 11:00 am - Agnieszka Scanlon, N.P. at [facility]12/06/2019 11:00 am - [facility] ECHO Schedule at [facility]12/09/2019 9:00 am - Nurse Visit IC at [facility]2019 11:30 am - Nurse Visit IC at [facility]11/21/2019 - Agnieszka Scanlon N.P.I42.9 Cardiomyopathy, unspecifiedRecommendations:Fatigue may be due to heart function being lower.I34.0 Nonrheumatic mitral (valve) [id number] Atherosclerotic heart disease of [place] coronary artery withI45.19 Right bundle branch xnfulA24.0 Localized edemaNew Medication: Furosemide 20 mg - 1 by mouth x1 then as needed for 3-5lb weight gain and swelling.Follow up:3-4w [facility] 03/2020 JFMRecommendations:try to elevated legs Take water pill tomorrow AM and then await lab results for further instructions.R53.83 Other fatigueNew Orders:Holter Monitor, Ordered: 11/21/19 Functional Status Description No Information Available Mental Status Description No Information Available Referrals Description No Information Available
--- NOTE | 2019-12-04 08:30 | ED ---
Adult Trauma - HPI Summary HPI Summary: The patient is an 89 y/o female arriving by ambulance to [facility] from assisted living facility accompanied by her aide with a chief complaint of a mechanical fall sometime during the night. She reports that she had suddenly fallen while walking from her kitchen to her living room, but her research home economist noted that her blanket rack had been tipped over. She also was ambulating without a walker, and she was noted to be slightly confused initially when her aide arrived around 0700. She is unsure of how long she had been on the floor, but she denies any LOC or neck pain. She is unsure if she hit her head. She has not ambulated since the fall. She takes a baby ASA daily but is not on any other anticoagulants. She did not take her medications this morning. She is supposed to have an appointment with Dr. Barrios today. PMHx: thyroid disease, atrial fibrillation, HTN, CABG. Former smoker, occasional EtOH, no substance use. Medications reviewed. Allergies noted. - History of Current Complaint Stated Complaint: FALL Time Seen by Provider: 12/04/19 08:11 Hx Obtained From: Patient, Family/Local Company Truck Driver - aide Mechanism of Injury: Fall Ambulatory at the Scene: No Loss of Consciousness: no loss of consciousness Onset/Duration: Started Minutes Ago Onset Severity: Moderate Current Severity: Mild Pain Intensity: 0 Pain Scale Used: 0-10 Numeric Aggravating Factor(s): Nothing Alleviating Factor(s): Nothing Associated Signs & Symptoms: Negative: Loss of Consciousness, Other: - neck pain - Additional Pertinent History Primary Care Physician: AMADOR - Allergy/Home Medications Allergies/Adverse Reactions: Allergies Allergy/AdvReac Type Severity Reaction Status Date / Time morphine Allergy Intermediate Shortness Verified 12/04/19 08:19 of Breath atorvastatin Allergy Mild Muscle Ache Verified 12/04/19 08:19 simvastatin Allergy Mild Muscle Ache Verified 12/04/19 08:19 amlodipine Allergy See Comment Verified 12/04/19 08:19 levofloxacin [From Levaquin] AdvReac Intermediate GI Upset Verified 12/04/19 08: 19 niacin AdvReac Intermediate GI Upset Verified 12/04/19 08:19 ramipril AdvReac Mild Coughing Verified 12/04/19 08:19 valsartan AdvReac Mild Fatigue Verified 12/04/19 08:19 Home Medications: Home Medications Escitalopram * [Lexapro 5 mg (NF)] 5 mg PO DAILY 12/04/19 [History Confirmed ] Furosemide TAB* [Lasix TAB*] 20 mg PO DAILY 12/04/19 [History Confirmed 12/04/19 ] Spironolactone TAB* [Aldactone TAB*] 12.5 mg PO DAILY 12/04/19 [History Confirmed 12/04/19] PMH/Surg Hx/FS Hx/Imm Hx Endocrine/Hematology History: Reports: Hx Thyroid Disease - hypothyroidism Denies: Hx Diabetes Cardiovascular History: Reports: Hx Atrial Fibrillation, Hx Coronary Artery Disease, Hx Hypertension, Other Cardiovascular Problems/Disorders - A-fib Denies: Hx Pacemaker/ICD Respiratory History: Denies: Hx Asthma, Hx Chronic Obstructive Pulmonary Disease (COPD) GI History: Denies: Hx Ulcer Musculoskeletal History: Reports: 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, per pt' s physician Denies: Hx Back Problems Sensory History: Reports: Hx Contacts or Glasses Denies: Hx Hearing Aid Opthamlomology History: Reports: Hx Contacts or Glasses Neurological History: Reports: Other Neuro Impairments/Disorders - occassional confusion & forgetfulness Psychiatric History: Reports: Hx Depression Denies: Hx Panic Disorder - Surgical History Surgical History: Yes Surgery Procedure, Year, and Place: CABG 2006, TOTAL KNEE REPLACEMENT (LEFT), HERNIA, RIGHT HIP, LENSE REPLACEMENT IN EYES, TONSILS, triple bipass 1999' Hx Anesthesia Reactions: No Infectious Disease History: No Infectious Disease History: Reports: Hx Clostridium Difficile - 8 years ago Denies: Hx Hepatitis, Hx Human Immunodeficiency Virus (HIV), Traveled Outside the [place] in Last 30 Days - Family History Known Family History: Positive: Cardiac Disease, Diabetes, Other - breast cancer - Social History Alcohol Use: Occasionally Alcohol Amount: 1 drink a day Hx Substance Use: No Substance Use Type: Reports: None Hx Tobacco Use: Yes Smoking Status (MU): Former Smoker Review of Systems Negative: Other - neck pain Neurological: Other - Negative: LOC; unsure if hit head All Other Systems Reviewed And Are Negative: Yes Physical Exam - Summary Physical Exam Summary: Constitutional: Well-developed, Well-nourished, Alert HENT: Normocephalic. Atraumatic, No abrasions/contusions, Midface stable, No dental trauma, No trismus Eyes: EOM normal, PERRL Neck: Trachea midline, No stridor, No cervical step off, No posterior cervical spine tenderness Cardio: Rhythm regular, rate normal, Heart sounds normal, Radial pulses are 2+ and symmetric. Pulmonary/Chest wall: Effort normal, Breath sounds normal, (-) Stridor, Equal chest rise, No rib tenderness Abd: Soft, Appearance normal. (-) Distension, (-) Tenderness. Musculoskeletal: No extremity trauma. No TL midline tenderness. Neuro: Alert, GCS 15. Strength 5/5 all extremities. Ambulates w steady gait Skin: Warm, Dry, Skin intact Triage Information Reviewed: Yes Vital Signs On Initial Exam: Initial Vitals Temp Pulse Resp BP Pulse Ox 97.5 F 74 16 199/119 98 12/04/19 08:12 12/04/19 08:12 12/04/19 08:12 12/04/19 08:12 12/04/19 08:12 Vital Signs Reviewed: Yes - Diya Coma Scale Best Eye Response: 4 - Spontaneous Best Motor Response: 6 - Obeys Commands Best Verbal Response: 5 - Oriented Coma Scale Total: 15 Procedures - Sedation Patient Received Moderate/Deep Sedation with Procedure: No Diagnostics - Vital Signs Vital Signs Temp Pulse Resp BP Pulse Ox 12/04/19 08:12 97.5 F 74 16 199/119 98 - Laboratory Result Diagrams: 12/04/19 08:41 12/04/19 08:41 Lab Statement: Any lab studies that have been ordered have been reviewed, and results considered in the medical decision making process. - CT Brain CT CT Interpretation Completed By: Radiologist Summary of CT Findings: Impression: 1. No evidence for acute intracranial abnormality. 2. 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 ED physician has reviewed this report. Cervical Spine CT CT Interpretation Completed By: Radiologist Summary of CT Findings: Impression: 1. Osteopenia. 2. Degenerative disc disease and osteoarthritis. 3. Atherosclerosis. 4. 0.4 cm right apical lung nodule. The recommendations for followup and management of an incidentally detected pulmonary nodule less than 6 mm in size, in a patient without a history of malignancy, include no followup for a low-risk patient or optional followup CT in 12 months for a high risk patient. 5. 1.6 cm left thyroid nodule. [employer] Incidental Thyroid. Findings cCommittee recommends thyroid ultrasound for incidental nonsuspicious thyroid nodules greater than or equal to 1.5 cm in size for the patient over the age of 35. 6. No acute osseous injury of the cervical spine. Notes: size = average length and width; high risk is defined as a history of smoking or other known risk factors for lung cancer; low risk is defined as minimal or absent history of smoking or other known risk factors. ED physician has reviewed this report. - EKG 0831 Cardiac Rate: Other Rate - 76 bpm EKG Rhythm: Atrial Fibrillation EKG Comparison: No Significant Change - Compared to 05/29/2018, no significant change. Summary of EKG Findings: An EKG at 0831 reveals atrial fibrillation at 76 bpm, RBBB, PVCs. No STEMI. No acute changes. ED physician has reviewed and interpreted this EKG. Re-Evaluation - Re-Evaluation First Eval Re-Evaluation Time: 10:30 Comment: We discussed results and plan for discharge as long as her blood pressure improves. Ambulated w walker. Son at bedside and updated Adult Trauma Course/Dx - Course Course Of Treatment: 89 y/o F w hx afib, CHF presents after a fall. - VS notable for HTN (hx HTN). Exam w normal neuro exam, no complaints. - aid at bedside was concerned for possible AMS (none now). Check CT brain/cspine for fall, lab work, EKG and UA. Patient unable to provide urine sample. Is not confused and does not have urine symptoms. - labs notable for troponin 0.03 which is lower than baseline, creatinine at baseline. EKG w afib with a right bundle-branch block no change from prior. CT brain C-spine negative. Patient given home dose of Coreg. -Based on my eval today, no evidence of end organ damage from hypertension. -chemistry wnl,no EMELY noted, no chest pain/sob, no BETTENCOURT , neuro exam non-focal. Recommendations for BP management: -The pt likely suffers from essential hypertension. -In the absence of a hypertensive emergency, which the pt does not have, there is no indication to aggressively treat elevated blood pressure, even when it approaches the systolic ~180 range. -The patient needs superintendent terminal management of their blood pressure. -acutely, the pt may still have an elevated pressure, but over time the medication will take effect. - Diagnoses Provider Diagnoses: Fall, Hypertension, Atrial fibrillation Discharge ED - Sign-Out/Discharge Documenting (check all that apply): Patient Departure - Patient will be discharged home. - Discharge Plan Condition: Stable Disposition: HOME Patient Education Materials: Fall Prevention for Older Adults (ED), Chronic Hypertension (DC) Referrals: Breanna Isabel MD [Primary Care Provider] - Additional Instructions: You were seen in the emergency department for a fall. Your blood pressure is elevated. Your CT scan showed a nodule in your lung as well as one in your thyroid, so you should follow up with you primary care doctor regarding this. If any studies were not completed at the time of discharge you will be called with the relevant results. Please follow up with your primary care doctor in the next 2-3 days and return to the emergency department for worsening or concerning symptoms. It was a pleasure taking care of you today. - Billing Disposition and Condition Condition: STABLE Disposition: Home - Attestation Statements Document Initiated by Robin: Yes Documenting Scribe: Maura Guajardo Provider For Whom Robin is Documenting (Include Credential): Dr. Mackenzie Ortiz MD Scribe Attestation: Maura Lee, scribed for Dr. Mackenzie Ortiz MD on 12/04/19 at 1108. Scribe Documentation Reviewed: Yes Provider Attestation: The documentation as recorded by the Maura manning accurately reflects the service I personally performed and the decisions made by me, Dr. Mackenzie Ortiz MD Status of Scribe Document: Viewed
[2019-12-04 09:01] LABS: ABS Eosinophils 0.1 10^3/ul (0-0.6); ABS Lymphocytes 1.4 10^3/ul (1.0-4.8); ABS Monocytes 0.7 10^3/ul (0-0.8); ABS Neutrophils 2.8 10^3/ul (1.5-7.7); Eosinophil % 2.5 %; Hematocrit 37 % (35-47); Hemoglobin 12.7 g/dL (12.0-16.0); Lymphocyte % 28.1 %; Mean Corpuscular HGB Conc 34 g/dL (31-36); Mean Corpuscular Hemoglobin 30 pg (27-31); Mean Corpuscular Volume 89 fL (80-97); Mean Platelet Volume 8.6 fL (7.4-10.4); Nucleated Red Blood Cells % 0.1; Platelet Count 147 10^3/uL (150-450); Red Blood Count 4.22 10^6 /uL (3.70-4.87); Red Cell Distribution Width 15 % (10-15); White Blood Count 5.1 10^3/uL (3.5-10.8)
[2019-12-04 09:15] LABS: ALT 8 U/L (7-52); AST 17 U/L (13-39); Albumin 4.2 g/dL (3.2-5.2); Albumin/Globulin Ratio 1.1 (1-3); Alkaline Phosphatase 101 U/L (34-104); Anion Gap 11 mmol/L (2-11); BUN/Creatinine Ratio 26.2 (8-20); Blood Urea Nitrogen 33 mg/dL (6-24); CO2 Carbon Dioxide 27 mmol/L (22-32); Calcium 9.9 mg/dL (8.6-10.3); Chloride 100 mmol/L (101-111); EGFR African American 48.6 (>60); EGFR Non-African American 40.2 (>60); Glucose 84 mg/dL (70-100); Potassium 3.5 mmol/L (3.5-5.0); Sodium 138 mmol/L (135-145); Total Protein 8.2 g/dL (6.4-8.9)
[2019-12-04 09:22] LABS: Troponin I 0.03 ng/mL (<0.03)
[2019-12-04] MEDS ORDERED: Carvedilol TAB* 6.25 MG PO ONE (10:13)
[2019-12-04 10:52] VITALS: BP 170/100
== END 2019-12-04 11:10 | disposition home or self-care (01) ==
LOC: ED 08:09
DX: I10 Essential (primary) hypertension (principal); I48.91 Unspecified atrial fibrillation; W18.30XA Fall on same level, unspecified, initial encounter; Y92.000 Kitchen of unspecified non-institutional (private) residence as the place of occurrence of the external cause; E03.9 Hypothyroidism, unspecified; I25.10 Atherosclerotic heart disease of native coronary artery without angina pectoris; F32.9 Major depressive disorder, single episode, unspecified; Z87.891 Personal history of nicotine dependence; Z95.1 Presence of aortocoronary bypass graft; Z96.652 Presence of left artificial knee joint; Z79.82 Long term (current) use of aspirin; Z79.899 Other long term (current) drug therapy; Z88.1 Allergy status to other antibiotic agents; Z88.5 Allergy status to narcotic agent; Z88.8 Allergy status to other drugs, medicaments and biological substances; M50.30 Other cervical disc degeneration, unspecified cervical region; R91.1 Solitary pulmonary nodule; E04.1 Nontoxic single thyroid nodule
CPT/HCPCS: 36415; 70450; 72125; 80053; 84484; 85025; 93005; 99283; A9270-GY

== ENCOUNTER 2019-12-06 19:11 | Emergency (ER) | payer MEDICARE ==
--- NOTE | 2019-12-06 19:42 | ED ---
Adult Trauma - HPI Summary HPI Summary: Patient is an 89 y/o F presenting to the ED via EMS for a fall that occurred on 12/06/19. Patient states she was sitting on a stool when she fell on carpet around 19:30. Per EMS, patient yelled after the fall for help and a friend called EMS. Patient is unsure if she injured her head. Patient denies any LOC, myalgia, or abdominal pain. Any blood thinners use is denied. Three days ago, she also had a fall and she was seen at [facility]. PMHx is significant for HTN and CHF. Any tobacco, alcohol, or drug use is denied. She is able to ambulate with a walker. She lives at [facility]. Allergies noted. Medications reviewed. - History of Current Complaint Chief Complaint: EDFall Stated Complaint: FALL,WEAKNESS PER EMS Time Seen by Provider: 12/06/19 19:26 Hx Obtained From: Patient, EMS ?: No Mechanism of Injury: Fall Ambulatory at the Scene: Yes Loss of Consciousness: no loss of consciousness Onset/Duration: Traumatic - Fall, Resolved Onset Severity: Mild Current Severity: None Pain Intensity: 0 Pain Scale Used: 0-10 Numeric Aggravating Factor(s): Nothing Alleviating Factor(s): Nothing Associated Signs & Symptoms: Negative: Abdominal Pain, Loss of Consciousness, Other: - Negative myalgia Related History: Similar Episode - Additional Pertinent History Primary Care Physician: AMADOR - Allergy/Home Medications Allergies/Adverse Reactions: Allergies Allergy/AdvReac Type Severity Reaction Status Date / Time morphine Allergy Intermediate Shortness Verified 12/04/19 08:19 of Breath atorvastatin Allergy Mild Muscle Ache Verified 12/04/19 08:19 simvastatin Allergy Mild Muscle Ache Verified 12/04/19 08:19 amlodipine Allergy See Comment Verified 12/04/19 08:19 levofloxacin [From Levaquin] AdvReac Intermediate GI Upset Verified 12/04/19 08: 19 niacin AdvReac Intermediate GI Upset Verified 12/04/19 08:19 ramipril AdvReac Mild Coughing Verified 12/04/19 08:19 valsartan AdvReac Mild Fatigue Verified 12/04/19 08:19 Home Medications: Home Medications Carvedilol TAB* [Coreg TAB*] 3.125 mg PO BID 12/06/19 [History Confirmed ] PMH/Surg Hx/FS Hx/Imm Hx Previously Healthy: Yes Endocrine/Hematology History: Reports: Hx Thyroid Disease - hypothyroidism Denies: Hx Diabetes Cardiovascular History: Reports: Hx Atrial Fibrillation, Hx Congestive Heart Failure, Hx Coronary Artery Disease, Hx Hypertension, Other Cardiovascular Problems/Disorders - A-fib Denies: Hx Pacemaker/ICD Respiratory History: Denies: Hx Asthma, Hx Chronic Obstructive Pulmonary Disease (COPD) GI History: Denies: Hx Ulcer Musculoskeletal History: Reports: 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, per pt' s physician Denies: Hx Back Problems Sensory History: Reports: Hx Contacts or Glasses Denies: Hx Legally Blind, Hx Deafness, Hx Hearing Aid Opthamlomology History: Reports: Hx Contacts or Glasses Denies: Hx Legally Blind EENT History: Denies: Hx Deafness Neurological History: Reports: Other Neuro Impairments/Disorders - occassional confusion & forgetfulness Psychiatric History: Reports: Hx Depression Denies: Hx Panic Disorder - Surgical History Surgical History: Yes Surgery Procedure, Year, and Place: CABG 2005, TOTAL KNEE REPLACEMENT (LEFT), HERNIA, RIGHT HIP, LENSE REPLACEMENT IN EYES, TONSILS, triple bipass 1999' Hx Anesthesia Reactions: No Infectious Disease History: No Infectious Disease History: Reports: Hx Clostridium Difficile - 8 years ago Denies: Hx Hepatitis, Hx Human Immunodeficiency Virus (HIV), Traveled Outside the [place] in Last 30 Days - Family History Known Family History: Positive: Cardiac Disease, Diabetes, Other - breast cancer - Social History Occupation: Retired Lives: Assisted Living Alcohol Use: Occasionally Alcohol Amount: 1 drink a day Hx Substance Use: No Substance Use Type: Reports: None Hx Tobacco Use: Yes Smoking Status (MU): Former Smoker Review of Systems Negative: Abdominal Pain Negative: Myalgia Negative: Syncope - Negative LOC All Other Systems Reviewed And Are Negative: Yes Physical Exam - Summary Physical Exam Summary: Constitutional: Well-developed, Well-nourished, Alert. (-) Distressed Skin: Warm, Dry HENT: Normocephalic; Atraumatic Eyes: Conjunctiva normal Neck: Musculoskeletal ROM normal neck. (-) JVD, (-) Stridor, (-) Tracheal deviation Cardio: Rhythm regular, rate normal, Heart sounds normal; Intact distal pulses; Radial pulses are 2+ and symmetric. (-) Murmur Pulmonary/Chest wall: Effort normal. (-) Respiratory distress, (-) Wheezes, (-) Rales Abd: Soft, (-) tenderness, (-) Distension, (-) Guarding, (-) Rebound Musculoskeletal: (-) Edema. No tenderness or external trauma. Lymph: (-) Cervical adenopathy Neuro: Alert, Oriented to person Psych: Mood and affect Normal Triage Information Reviewed: Yes Vital Signs On Initial Exam: Initial Vitals Temp Pulse Resp BP Pulse Ox 97.6 F 69 16 137/67 97 12/06/19 19:15 12/06/19 19:15 12/06/19 19:15 12/06/19 19:15 12/06/19 19:15 Vital Signs Reviewed: Yes Procedures - Sedation Patient Received Moderate/Deep Sedation with Procedure: No Diagnostics - Vital Signs Vital Signs Temp Pulse Resp BP Pulse Ox 12/06/19 19:15 97.6 F 69 16 137/67 97 - Laboratory Result Diagrams: 12/06/19 19:45 12/06/19 19:45 Lab Statement: Any lab studies that have been ordered have been reviewed, and results considered in the medical decision making process. - EKG 19:48 Cardiac Rate: Other Rate - 59 BPM EKG Rhythm: Atrial Fibrillation ST Segment: Normal Ectopy: None Summary of EKG Findings: EKG at 19:48 shows atrial fibrillation with 59 BPM, ST depression in V4-V6, no obvious ST elevation, multiple PVCs, unchanged from EKG on 12/04/19. Reviewed and interpreted by Dr. Jacob. Re-Evaluation - Re-Evaluation First Eval Re-Evaluation Time: 20:54 Change: Unchanged Comment: At 20:54, patient's blood pressure responded to lying down. Patient was offered admission, but she declined. Adult Trauma Course/Dx - Course Course Of Treatment: Patient is here after a mechanical fall. Patient was sitting in her chair getting her dinner when she fell over. Patient states she was attempting to holdable of soup when she fell over. Patient had no injuries in the fall and had no areas of tenderness or signs of trauma. Patient was seen here 3 days ago for similar episode. Patient had an EKG which showed atrial fibrillation with no changes compared to prior EKG. Patient had troponin of 0.03 which is at her baseline. Patients other blood tests are all grossly unremarkable. Patient was found to be orthostatic when she stood up. Patient was offered admission to evaluate her orthostasis but she declined. Patient was encouraged to walk with a walker and to take all measures to prevent a fall. Patient will follow up with her PCP for reevaluation - Diagnoses Provider Diagnoses: Fall, Orthostatic hypertension, Atrial fibrillation Discharge ED - Sign-Out/Discharge Documenting (check all that apply): Patient Departure - Discharge - Discharge Plan Condition: Stable Disposition: HOME Patient Education Materials: Fall Prevention (ED) Referrals: Breanna Isabel MD [Primary Care Provider] - Additional Instructions: PLEASE RETURN TO EMERGENCY DEPARTMENT FOR CHEST PAIN, TROUBLE BREATHING, FEELING FAINT, OR ANY NEW OR WORSENING SYMPTOMS. Please follow up with your primary care physician. Please make all follow-ups in 1-3 days unless I advise you otherwise. Use a walker when walking. Sit in chairs that have an armrest. Hold onto things when sitting or standing. Avoid falling. - Billing Disposition and Condition Condition: STABLE Disposition: Home - Attestation Statements Document Initiated by Robin: Yes Documenting Robin: Katherine Al Provider For Whom Robin is Documenting (Include Credential): Keyon Jacob MD Scribe Attestation: Katherine Lee, scribed for Keyon Jacob MD on 12/06/19 at 2124. Scribe Documentation Reviewed: Yes Provider Attestation: The documentation as recorded by the Katherine manning accurately reflects the service I personally performed and the decisions made by me, Keyon Jacob MD Status of Scribe Document: Viewed
[2019-12-06 19:51] LABS: ABS Eosinophils 0.1 10^3/ul (0-0.6); ABS Lymphocytes 0.9 10^3/ul (1.0-4.8); ABS Monocytes 0.4 10^3/ul (0-0.8); ABS Neutrophils 3.4 10^3/ul (1.5-7.7); Eosinophil % 1.2 %; Hematocrit 37 % (35-47); Hemoglobin 12.8 g/dL (12.0-16.0); Lymphocyte % 19.5 %; Mean Corpuscular HGB Conc 34 g/dL (31-36); Mean Corpuscular Hemoglobin 30 pg (27-31); Mean Corpuscular Volume 88 fL (80-97); Mean Platelet Volume 8.5 fL (7.4-10.4); Platelet Count 148 10^3/uL (150-450); Red Blood Count 4.22 10^6 /uL (3.70-4.87); Red Cell Distribution Width 15 % (10-15); White Blood Count 4.9 10^3/uL (3.5-10.8)
[2019-12-06 20:09] LABS: ALT 8 U/L (7-52); AST 17 U/L (13-39); Albumin/Globulin Ratio 1.1 (1-3); Alkaline Phosphatase 90 U/L (34-104); Anion Gap 9 mmol/L (2-11); BUN/Creatinine Ratio 20.9 (8-20); Blood Urea Nitrogen 33 mg/dL (6-24); CO2 Carbon Dioxide 29 mmol/L (22-32); Calcium 9.8 mg/dL (8.6-10.3); Chloride 100 mmol/L (101-111); EGFR African American 37.4 (>60); EGFR Non-African American 30.9 (>60); Globulin 3.7 g/dL (2-4); Glucose 150 mg/dL (70-100); Potassium 3.4 mmol/L (3.5-5.0); Sodium 138 mmol/L (135-145); Total Protein 7.7 g/dL (6.4-8.9)
[2019-12-06 20:11] LABS: Troponin I 0.03 ng/mL (<0.03)
--- OUTSIDE RECORDS SUMMARY | 2019-12-06 20:15 | XMS REPORT | Continuity of Care Document ---
:1930 External Reference #:[id number] Author Name Agnieszka Scanlon N.P. (transmitted by agent of provider Gladys Boucher) Address [address] [place] [address] Care Team Providers Name Role Phone Breanna Bourne MD - Family Medicine Care Team Information Membership Administrator Problems Active Problems Provider Date Mitral valve [...] e-cigarettes, or chewing tobacco. Smoking Status Reviewed: 12/04/19 Former Cigarette Smoker Pt denies smoking pipe, [...] Medications Active Medications SIG Qnty Indications Ordering Date Provider Spironolactone 1/2 tablet by 30tabs Latrell Fiore 11/29/2019 25mg Tablets mouth every day Jaylin Barrios Furosemide 1 tablet by 30tabs R60.0 Agnieszka Scanlon, 11/21/2019 20mg Tablets mouth Mon, Mon, N.P. Fri Aspirin 1 po qd Latrell Fiore 12/11/2006 81mg Chewtabs Jaylin Barrios Co Q-10 1 po qd as Unknown 100mg Capsules needed Vitamin B Complex 1 po qd as 30tabs Unknown Tablets needed Magnesium 1 po qd as 30tabs Unknown 250mg Tablets needed Levo/Lioth 49.25/0.75ug SR Unknown 1 capsule by mouth every day Carvedilol 1 by mouth twice Unknown 3.125mg Tablets a day Escitalopram Oxalate 1 by mouth every Unknown 5mg day Tablets Immunizations Description No Information Available Vital Signs Date Vital Result Comment 12/04/2019 12:10pm Height 67 inches 5'7" Weight 121.00 lb with shoes Heart Rate 76 /min apical BP Systolic Sitting 108 mmHg Rue, reg cuff BP Diastolic Sitting 64 mmHg Rue, reg cuff BMI (Body Mass Index) 18.9 kg/m2 Ejection Fraction 30%-35% echocardiogram 11/25/19 11/21/2019 3:19pm Height 67 inches 5'7" Weight 132.00 lb with shoes Heart Rate 64 /min BP Systolic Sitting 118 mmHg lue reg cuff BP Diastolic Sitting 64 mmHg lue reg cuff BP Systolic Standing 122 mmHg lue reg cuff BP Diastolic Standing 64 mmHg lue reg cuff Respiratory Rate 12 /min BMI (Body Mass Index) 20.7 kg/m2 Ejection Fraction 50-55% echo. 09/26/18 Results Test Acquired Date Facility Test Result H/L Range Note Order 11/25/2019 [facility] Holter <pending> [address] [place] [address] [phone] Comp Metabolic 11/21/2019 [facility] Sodium 140 mmol/L Normal 135-[address] [place] [address] [phone] Potassium 3.7 mmol/L Normal 3.5-5.0 Chloride 108 mmol/L Normal 101-111 Co2 Carbon Dioxide 26 mmol/L Normal 22-32 Anion Gap 6 mmol/L Normal 2-11 Glucose 115 mg/dL High 70-100 Blood Urea Nitrogen 32 mg/dL High 6-24 Creatinine 1.14 mg/dL High 0.51-0.95 BUN/Creatinine Ratio 28.1 High 8-20 Calcium 8.7 mg/dL Normal 8.6-10.3 Total Protein 6.9 g/dL Normal 6.4-8.9 Albumin 3.8 g/dL Normal 3.2-5.2 Globulin 3.1 g/dL Normal 2-4 Albumin/Globulin Ratio 1.2 Normal 1-3 Total Bilirubin 0.60 mg/dL Normal 0.2-1.0 Alkaline Phosphatase 97 U/L Normal 34-104 Alt 11 U/L Normal 7-52 Ast 14 U/L Normal 13-39 Egfr Non- 45.1 >60 Egfr 54.6 >60 1 CBC Auto 11/21/2019 [facility] White Blood 4.6 10^3/uL Normal 3.5-10.[address] [place] [address] [phone] Red Blood Count 3.62 10^6/uL Low 3.70-4.87 Hemoglobin 11.1 g/dL Low 12.0-16.0 Hematocrit 33 % Low 35-47 Mean Corpuscular Volume 90 fL Normal 80-97 Mean Corpuscular Hemoglobin 31 pg Normal 27-31 Mean Corpuscular HGB Conc 34 g/dL Normal 31-36 Red Cell Distribution Width 15 % Normal 10-15 Platelet Count 160 10^3/uL Normal 150-450 Mean Platelet Volume 8.6 fL Normal 7.4-10.4 Abs Neutrophils 2.8 10^3/uL Normal 1.5-7.7 Abs Lymphocytes 1.3 10^3/uL Normal 1.0-4.8 Abs Monocytes 0.4 10^3/uL Normal 0-0.8 Abs Eosinophils 0.1 10^3/uL Normal 0-0.6 Abs Basophils 0.0 10^3/uL Normal 0-0.2 Abs Nucleated RBC 0.0 10^3/uL Granulocyte % 60.4 % Lymphocyte % 27.2 % Monocyte % 9.1 % Eosinophil % 2.8 % Basophil % 0.5 % Nucleated Red Blood Cells % 0.0 Laboratory test 11/21/2019 [facility] B-Type > 1300 High <= [address] Natriuretic pg/[place] [address] Peptide BNP [phone] 1 Because ethnic data is not always readily available, this report includes an eGFR for both -Americans and non- Americans. The National Kidney Disease Education Program (NKDEP) does not endorse the use of the MDRD equation for patients that are not between the ages of 18 and 70, are , have extremes of body size, muscle mass, or nutritional status, or are non- or non-. According to the National Kidney Foundation, irrespective of diagnosis, the stage of the disease is based on the level of kidney function: Stage Description GFR(mL/min/1.73 m(2)) 1 Kidney damage with normal or decreased GFR 90 2 Kidney damage with mild decrease in GFR 60-89 3 Moderate decrease in GFR 30-59 4 Severe decrease in GFR 15-29 5 Kidney failure <15 (or dialysis) Procedures Date Code Description Status 11/27/2019 78787 Holter Monitor Review (24 hr)dr review & interp only Completed 11/25/2019 89714 ECHO Transthoracic, Real-Time 2D With Doppler And Color Completed Flow 11/25/2019 71096 ECHO Transthoracic, Real-Time 2D With Doppler And Color Completed Flow 11/25/2019 03101 ECG Monitor/Recording W/Visual Superimposition Scanning Completed 11/25/2019 73639 ECG Monitor/Recording W/Visual Superimposition Scanning Completed 11/21/2019 59107 EKG Tracing & Interpretation Completed Medical Devices Description No Information Available Encounters Type Date Location Provider Dx Diagnosis Office Visit 11/21/2019 [facility] Agnieszka Scanlon, I42.9 Cardiomyopathy, 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 Capo, N.P. 12/04/2019 I42.9 Cardiomyopathy, unspecified Agnieszka SBimal Scanlon, N.P. 12/04/2019 I49.3 Ventricular premature depolarization Agnieszka S. Capo, N.P. 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 12/04/2019 R94.31 Abnormal electrocardiogram [ECG] [EKG] Agnieszka Scanlon, N.P. 12/04/2019 I25.10 Atherosclerotic heart disease of [place] Agnieszka S. Capo, N.P. coronary artery with 11/27/2019 R53.83 Other fatigue Latrell Barrios M.D. 11/27/2019 I48.91 Unspecified atrial fibrillation Latrell Barrios M.D. 11/27/2019 I49.3 Ventricular premature depolarization Latrell Barrios M.D. 11/25/2019 I42.9 Cardiomyopathy, unspecified Latrell Barrios M.D. 11/25/2019 I48.91 Unspecified atrial fibrillation Latrell Barrios M.D. 11/25/2019 R53.83 Other fatigue Nurse Visit 11/25/2019 I49.3 Ventricular premature depolarization Latrell Barrios M.D. 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 11/21/2019 I42.9 Cardiomyopathy, unspecified Agnieszka S. Capo, N.P. 11/21/2019 I45.19 Other right bundle-branch block Latrell Barrios M.D. 11/21/2019 I34.0 Nonrheumatic mitral (valve) insufficiency Agnieszka SBimal Scanlon, N.P. 11/21/2019 R94.31 Abnormal electrocardiogram [ECG] [EKG] Latrell Barrios M.D. 11/21/2019 I25.10 Atherosclerotic heart disease of [place] Agnieszka S. Capo, N.P. coronary artery with 11/21/2019 I45.19 Right bundle branch block Agnieszka S. Capo, N.P. 11/21/2019 R60.0 Localized edema Agnieszka S. Capo, N.P. 11/21/2019 R53.83 Other fatigue Agnieszka S. Capo, N.P. 08/19/2019 L82.1 Other seborrheic keratosis Fawad Zuñiga MD Plan of Treatment Future Appointment(s):02/03/2020 1:20 pm - Latrell Barrios M.D. at [facility]12/26/2019 11:30 am - Agnieszka Scanlon, N.P. at [facility]12/04/2019 - Agnieszka Scanlon, N.P.I34.0 Nonrheumatic mitral (valve) insufficiencyReferral:Wong Fisher MD, Interventional LwsabzgymnR80.9 Cardiomyopathy, unspecifiedFollow up:Move out [facility] 2 weeks [facility] 01/2020 please fit inRecommendations:Heart function is lower 30-35% Mitral valve very leaky which puts more pressure on right side and causes leaky tricuspid valve and weak right heart and leg swelling. Continue Spironolactone Decrease Lasix to M, W, F onlyI49.3 Ventricular premature lfnjobxfpgzbigI26.82 Biventricular congestive heart wvfhfgvF13.31 Abnormal electrocardiogram [ECG] [EKG]I25.10 Atherosclerotic heart disease of [place] coronary artery with Functional Status Description No Information Available Mental Status Description No Information Available Referrals Refer to Dr Reason for Referral Status Appt Date Wong Fisher MD severe, MR, TR, and EF 30-35% Sent [address] [place] [address] [phone]
[2019-12-06 21:20] VITALS: BP 148/77
== END 2019-12-06 21:18 | disposition home or self-care (01) ==
LOC: ED 19:11
DX: I95.1 Orthostatic hypotension (principal); I48.91 Unspecified atrial fibrillation; W07.XXXA Fall from chair, initial encounter; Y92.199 Unspecified place in other specified residential institution as the place of occurrence of the external cause; I11.0 Hypertensive heart disease with heart failure; I50.9 Heart failure, unspecified; E03.9 Hypothyroidism, unspecified; I25.10 Atherosclerotic heart disease of native coronary artery without angina pectoris; F32.9 Major depressive disorder, single episode, unspecified; Z95.1 Presence of aortocoronary bypass graft; Z96.652 Presence of left artificial knee joint; Z87.891 Personal history of nicotine dependence; Z79.899 Other long term (current) drug therapy
CPT/HCPCS: 36415; 80053; 84484; 85025; 93005; 99284

== ENCOUNTER 2019-12-08 17:06 | Inpatient (IN) | payer MEDICARE ==
--- NOTE | 2019-12-08 17:48 | ED ---
Complex/Multi-Sys Presentation - HPI Summary HPI Summary: 89 y/o female presented to [facility] after an episode of syncope. She was walking to the bathroom with her daughter when she became stiff, her eyes reportedly rolled back, and stated she felt shaky. She does not remember the episode. Pt denies weakness, pain, V/D. She was reportedly hypotensive earlier. She has had 3 similar episodes in the past week on 12/04, 12/05, and 12/06 in which she fell. She lives by herself, walks with a walker, and Hx of Afib is noted. She sees Dr. Barrios and her daughter notes that her medications were decreased recently. Medications reviewed. Allergies noted. 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 Negative: Weakness, Vomiting, Diarrhea Related History: Similar Episode/Diagnosed As: - 3 similar episodes in the past week - Allergies/Home Medications Allergies/Adverse Reactions: Allergies Allergy/AdvReac Type Severity Reaction Status Date / Time morphine Allergy Intermediate Shortness Verified 12/04/19 08:19 of Breath atorvastatin Allergy Mild Muscle Ache Verified 12/04/19 08:19 simvastatin Allergy Mild Muscle Ache Verified 12/04/19 08:19 amlodipine Allergy See Comment Verified 12/04/19 08:19 levofloxacin [From Levaquin] AdvReac Intermediate GI Upset Verified 12/04/19 08: 19 niacin AdvReac Intermediate GI Upset Verified 12/04/19 08:19 ramipril AdvReac Mild Coughing Verified 12/04/19 08:19 valsartan AdvReac Mild Fatigue Verified 12/04/19 08:19 PMH/Surg Hx/FS Hx/Imm Hx Endocrine/Hematology History: Reports: Hx Thyroid Disease - hypothyroidism Denies: Hx Diabetes Cardiovascular History: Reports: Hx Atrial Fibrillation, Hx Congestive Heart Failure, Hx Coronary Artery Disease, Hx Hypertension, Other Cardiovascular Problems/Disorders - A-fib Denies: Hx Pacemaker/ICD Respiratory History: Denies: Hx Asthma, Hx Chronic Obstructive Pulmonary Disease (COPD) GI History: Denies: Hx Ulcer Musculoskeletal History: Reports: 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, per pt' s physician Denies: Hx Back Problems Sensory History: Reports: Hx Contacts or Glasses Denies: Hx Legally Blind, Hx Deafness, Hx Hearing Aid Opthamlomology History: Reports: Hx Contacts or Glasses Denies: Hx Legally Blind Neurological History: Reports: Other Neuro Impairments/Disorders - occassional confusion & forgetfulness Psychiatric History: Reports: Hx Depression Denies: Hx Panic Disorder - Surgical History Surgery Procedure, Year, and Place: CABG 2006, TOTAL KNEE REPLACEMENT (LEFT), HERNIA, RIGHT HIP, LENSE REPLACEMENT IN EYES, TONSILS, triple bipass 1999' Hx Anesthesia Reactions: No Infectious Disease History: No Infectious Disease History: Reports: Hx Clostridium Difficile - 8 years ago Denies: Hx Hepatitis, Hx Human Immunodeficiency Virus (HIV), Traveled Outside the [place] in Last 30 Days - Family History Known Family History: Positive: Cardiac Disease, Diabetes, Other - breast cancer - Social History Alcohol Use: Occasionally Alcohol Amount: 1 drink a day Hx Substance Use: No Substance Use Type: Reports: None Hx Tobacco Use: Yes Smoking Status (MU): Former Smoker Review of Systems Negative: Vomiting, Diarrhea Negative: Arthralgia, Myalgia Positive: Syncope. Negative: Weakness All Other Systems Reviewed And Are Negative: Yes Physical Exam - Summary Physical Exam Summary: Constitutional: Well-developed, Well-nourished, Alert. (-) Distressed Skin: Warm, Dry HENT: Normocephalic; Atraumatic Eyes: Conjunctiva normal Neck: Musculoskeletal ROM normal neck. (-) JVD, (-) Stridor, (-) Tracheal deviation Cardio: Rhythm regular, rate normal, Heart sounds normal; Intact distal pulses. Radial pulses are 2+ and symmetric. (-) Murmur Pulmonary/Chest wall: Effort normal. (-) Respiratory distress, (-) Wheezes, (-) Rales Abd: Soft. (-) Tenderness, (-) Distension, (-) Guarding, (-) Rebound Musculoskeletal: (-) Edema Lymph: (-) Cervical adenopathy Neuro: Alert, Oriented x3, Strength normal, Cranial nerves II-XII are grossly intact. (-) Dysmetria, (-) Nystagmus, (-) Ataxia by finger to nose testing, (-) Sensory deficit. NIH 0. Psych: Mood and affect Normal Triage Information Reviewed: Yes Vital Signs On Initial Exam: Initial Vitals Temp Pulse Resp BP Pulse Ox 98.3 F 55 16 131/62 97 12/08/19 17:14 12/08/19 17:14 12/08/19 17:14 12/08/19 17:14 12/08/19 17:14 Vital Signs Reviewed: Yes Procedures - Sedation Patient Received Moderate/Deep Sedation with Procedure: No Diagnostics - Vital Signs Vital Signs Temp Pulse Resp BP Pulse Ox 12/08/19 17:14 98.3 F 55 16 131/62 97 - Laboratory Result Diagrams: 12/08/19 17:52 12/08/19 17:52 Lab Statement: Any lab studies that have been ordered have been reviewed, and results considered in the medical decision making process. - EKG 1811 Cardiac Rate: Bradycardia EKG Rhythm: Atrial Fibrillation Summary of EKG Findings: Afib at 54bpm. Multiple PVCs. RBBB. No STEMI. Unchanged from prior on 12/04/19. Complex Multi-Symp Course/Dx Course Of Treatment: Patient is here for the third time in roughly 1 week. Patient has been having multiple falls asleep. Patient is accompanied by an aid today who says patient had an episode where her eyes rolled back her head and she became stiff. On prior visits, patient states she does have mechanical falls. Patient had repeat labs performed which are at her baseline. Patient was started on medications and had some medication adjustments easily but cannot state what those meds were. Patient has even more severe orthostatic hypotension this time. Patient's EKG is unchanged from her baseline. Given patient's frequent falls, severe orthostatic hypotension, patient was admitted to the hospital - Diagnoses Provider Diagnoses: Orthostatic hypotension, Multiple falls, Atrial fibrillation - Physician Notifications Discussed Care Of Patient With: Kirill Corado Time Discussed With Above Provider: 18:45 Instructed by Provider To: Other - Pt case was discussed with Dr. Corado, who agreed to admit the pt. Discharge ED - Sign-Out/Discharge Documenting (check all that apply): Patient Departure - admit - Discharge Plan Condition: Stable Disposition: ADMITTED TO [facility] - Billing Disposition and Condition Condition: STABLE Disposition: Admitted to [facility] - Attestation Statements Document Initiated by Scribe: Yes Documenting Scribe: Anatoly Osorio Provider For Whom Robin is Documenting (Include Credential): Keyon Jacob MD Scribe Attestation: Anatoly Lee, scribed for Keyon Jacob MD on 12/08/19 at 2109. Scribe Documentation Reviewed: Yes Provider Attestation: The documentation as recorded by the Anatoly manning accurately reflects the service I personally performed and the decisions made by me, Keyon Jacob MD Status of Scribe Document: Viewed
[2019-12-08 17:58] LABS: ABS Basophils 0.1 10^3/ul (0-0.2); ABS Eosinophils 0.1 10^3/ul (0-0.6); ABS Lymphocytes 1.6 10^3/ul (1.0-4.8); ABS Monocytes 0.7 10^3/ul (0-0.8); ABS Neutrophils 3.3 10^3/ul (1.5-7.7); Eosinophil % 1.8 %; Hematocrit 37 % (35-47); Hemoglobin 12.5 g/dL (12.0-16.0); Lymphocyte % 28.3 %; Mean Corpuscular HGB Conc 34 g/dL (31-36); Mean Corpuscular Hemoglobin 30 pg (27-31); Mean Corpuscular Volume 89 fL (80-97); Mean Platelet Volume 8.6 fL (7.4-10.4); Nucleated Red Blood Cells % 0.1; Platelet Count 158 10^3/uL (150-450); Red Blood Count 4.16 10^6 /uL (3.70-4.87); Red Cell Distribution Width 15 % (10-15); White Blood Count 5.7 10^3/uL (3.5-10.8)
[2019-12-08 18:19] LABS: Urine Appearance Turbid; Urine Bilirubin Negative (Negative); Urine Blood 1+ (Negative); Urine Color Amber; Urine Glucose Negative (Negative); Urine Ketones Trace (Negative); Urine Nitrite Negative (Negative); Urine Protein 1+(30 mg/dL) (Negative); Urine Specific Gravity 1.014 (1.010-1.030); Urine Urobilinogen Positive (Negative)
[2019-12-08 18:22] LABS: Albumin 3.8 g/dL (3.2-5.2); Albumin/Globulin Ratio 1.1 (1-3); BUN/Creatinine Ratio 23.2 (8-20); Calcium 9.3 mg/dL (8.6-10.3); EGFR African American 35.9 (>60); EGFR Non-African American 29.6 (>60); Globulin 3.5 g/dL (2-4); Potassium 3.3 mmol/L (3.5-5.0); Total Bilirubin 0.9 mg/dL (0.2-1.0); Total Protein 7.3 g/dL (6.4-8.9)
[2019-12-08 18:26] LABS: Urine Bacteria 3+ (Absent); Urine Red Blood Cell Trace(0-2/hpf) (Absent); Urine Squamous Epithelial Cell Present (Absent); Urine White Blood Cell 1+(6-10/hpf) (Absent)
[2019-12-08 18:35] LABS: Troponin I 0.04 ng/mL (<0.03)
[2019-12-08] MEDS ORDERED: Potassium Chlor TAB* 20 MEQ TAB.ER PO ONE (19:26)
[2019-12-08] MEDS ORDERED: NS 0.9% 1000 ML** 1,000 ML IV SCH (19:30)
--- NOTE | 2019-12-08 21:26 | HP ---
CC: Dr. Breanna Isabel; Dr. Latrell Barrios HISTORY AND PHYSICAL: DATE OF ADMISSION: 12/08/19 CHIEF COMPLAINT: Status post near syncope, multiple falls recently. PRIMARY CARE PROVIDER: Dr. Breanna Isabel. PRIMARY HUMAN RESOURCES TECHNICIAN: Dr. Latrell Barrios. HISTORY OF PRESENT ILLNESS: This is an 89-year-old female with history of atrial fibrillation, coronary artery disease with CABG, ischemic cardiomyopathy with ejection fraction of 20% to 25%, history of mitral valve disorder, who now comes to the emergency room after a near syncopal episode. The caregiver who is her aide is present at bedside, who reports that the patient has been found on the floor several times in the past week by herself. The patient has had 2 ER visits for such. This morning or sometime during the day today, the patient was using her walker to go to the bathroom, at which point she stiffened up and was about to fall when her aide caught her. The aide noted that the patient was stiffening up and her eyes kind of rolled towards the back. The caregiver was concerned and the patient was subsequently brought to the emergency room. The patient recalls the event, however, cannot give full details as to what happened to her during the episode. The patient did not experience any shortness of breath, no palpitations, no chest pain. She is unsure if she was having any lightheadedness. It seems like the patient was having lower extremity edema the week of 11/13, at which point she was introduced to diuretics and her diuretics were increased in dosage. Subsequently this week, the patient was seen by her acoustical installer it seems and her diuretic was decreased to furosemide Monday, Monday, and Monday and continued on spironolactone. PAST MEDICAL HISTORY: 1. Atrial fibrillation. 2. Coronary artery disease with CABG. 3. Hypertension. 4. CVA. 5. Cardiomyopathy with ejection fraction 20% to 25%. PAST SURGICAL HISTORY: 1. CABG. 2. Left total knee replacement. 3. Right hip pinning. 4. Lens implantation. HOME MEDICATIONS: Include: 1. Furosemide 20 mg Monday, Monday, and Monday. 2. Coreg 3.125 mg twice a day. 3. Aspirin 325 mg daily. 4. Aldactone 12.5 mg daily. 5. Escitalopram (Lexapro) 5 mg daily. ALLERGIES: Include: 1. MORPHINE. 2. ATORVASTATIN. 3. SIMVASTATIN. 4. AMLODIPINE. 5. LEVAQUIN. 6. NIACIN. 7. RAMIPRIL. 8. VALSARTAN. Family history. The patient's family has a history of type 1 diabetes in her mother and her father had coronary artery disease. Social history. The patient lives at the [facility]. Her surrogate decision maker is her son, Fidel, phone number [phone]. The patient is a do not resuscitate. The patient is a former smoker. REVIEW OF SYSTEMS: The patient does not have any fevers, no chills, no recent changes in her weight, no blurry vision, no double vision, no ear aches, no changes in her hearing, no sore throat, no neck pain, no trouble swallowing, no runny nose. Cardiovascular: See HPI. No orthopnea, no paroxysmal nocturnal dyspnea, no shortness of breath, no palpitations, no nausea, no vomiting, no diarrhea, no dysuria, no increase in urinary frequency, no headaches. She has been having multiple falls lately. No rashes or lesions. Otherwise, full 14 system review of systems was done, otherwise was negative, otherwise as listed in HPI. PHYSICAL EXAMINATION GENERAL: This is an elderly female, well developed, well nourished, lying in ER stretcher, in no acute distress. VITAL SIGNS: Blood pressure when lying down is 117/78, when sitting is 87/60, and when standing is 76/50; saturation of 97% on room air; respiratory rate of 16; heart rate of 68; temperature of 98.3 Fahrenheit. HEENT: Pupils equal, round, reactive to light. Atraumatic, normocephalic. The oral mucosa is dry. There is no nystagmus. NECK: Neck is supple with no JVD, no thyromegaly. LUNGS: There is no tachypnea, no use of accessory muscles. Lungs are clear without any wheezing, rales, or rhonchi. HEART: There is no chest wall tenderness, irregularly irregular, sternal scar is noted with 3/6 systolic murmur heard at the apex. ABDOMEN: Normoactive bowel sounds. Abdomen is soft, nontender, nondistended. EXTREMITIES: There is no lower extremity edema, no calf tenderness. Dorsalis pedis is 2+ bilaterally. Scar noted at the left knee. Radial pulse is 2+ bilaterally. NEUROLOGICAL: The patient is awake, alert, oriented x1 to person. She is moving all 4 extremities without any focal neurological deficit. SKIN: Poor skin turgor. DIAGNOSTIC STUDIES/LAB DATA: WBC 5.7, hemoglobin 12.5, hematocrit 37, platelet of 158. Sodium 137, potassium 3.3, chloride 101, bicarb 28, BUN 38, creatinine 1.64, glucose 141. Troponin I of 0.04. BNP of 610. Urinalysis shows turbid urine with squamous cell present, 3+ bacteria, 1+ wbc, negative for nitrite, and negative for urine leuk esterases. The patient underwent an EKG which revealed atrial fibrillation with deep inverted T-waves, noted in prior EKG as well, in the leads V2, V3, V4, V5. T- wave inversions also noted in leads II and III and in the aVF. IMPRESSION AND PLAN: 1. Near syncopal episode: This likely is secondary to dehydration/ overdiuresis. At this point, I will start the patient on IV fluids, hold the patient's Lasix as well as spironolactone. Gentle IV hydration. Need to be cautious with fluid status as the patient does have ejection fraction of 20% to 25%. I spoke with the patient's son, Fidel, via the telephone, , who reports to me that the patient had an echocardiogram done at Dr. Barrios's office this week and was noted to have worsening mitral valve disorder as well as decrease in ejection fraction. He did not know the specifics, I will get the results of the echocardiogram from Dr. Barrios's office. At this point, I will check orthostatics in the morning as well. 2. Mildly elevated troponin, the troponin is 0.04. This likely is demand due to decreased blood pressure. At this point, I will get a repeat EKG and troponin in the morning. 3. Acute kidney injury in the setting of overdiuresis/dehydration. Start the patient on gentle hydration. Hold home diuretics. 4. Hypokalemia. We will replete potassium. 5. History of atrial fibrillation, currently is rate controlled. The patient is not on anticoagulation due to her history of GI bleed while being on Xarelto. 6. History of stroke, continue aspirin 325 mg daily. I will also get a physical therapy evaluation. 7. History of CAD with CABG: continue daily aspirin 325mg, and coreg. 8. History of cardiomyopathy: EF 20-25%, Obtain Echocardiogram from Dr. Barrios' s office. Hold diuretics, monitor fluid status. 9. DVT prophylaxis with sequential compression device. The patient will be monitored on telemetry. 10. Code status. The patient is a do not resuscitate. Her prior MOLST form is in the computer system. I have discussed with the healthcare aide at bedside to get us the updated MOLST form from her home [id number] #: [id number] MTDD
[2019-12-08] MEDS: Carvedilol TAB* 3.125 MG PO SCH (22:26)
[2019-12-09 06:29] LABS: Anion Gap 7 mmol/L (2-11); BUN/Creatinine Ratio 26.8 (8-20); Blood Urea Nitrogen 38 mg/dL (6-24); CO2 Carbon Dioxide 27 mmol/L (22-32); Chloride 104 mmol/L (101-111); EGFR African American 42.3 (>60); Glucose 100 mg/dL (70-100); Phosphorus 2.8 mg/dL (2.5-5.0); Potassium 3.8 mmol/L (3.5-5.0); Sodium 138 mmol/L (135-145)
[2019-12-09 06:30] LABS: Troponin I 0.03 ng/mL (<0.03)
[2019-12-09 06:45] LABS: TSH (Thyroid Stimulating Horm) 2.07 mcIU/mL (0.34-5.60)
[2019-12-09] MEDS ORDERED: Aspirin TAB* 325 MG PO SCH (09:00)
[2019-12-09] MEDS: Carvedilol TAB* 3.125 MG PO SCH ×3 (09:31→21:01)
[2019-12-09] MEDS: Escitalopram * 5 MG TAB PO SCH (09:36)
[2019-12-09] MEDS: Aspirin TAB* 325 MG PO SCH (09:36)
[2019-12-09] MEDS ORDERED: NS 0.9% 500 ML* 500 ML IV ONE (12:36)
--- NOTE | 2019-12-09 12:36 | PN ---
Subjective Date of Service: 12/09/19 Interval History: HOSPITALIST PROGRESS NOTE Patient seen and examined at bedside. Care reviewed and d/w Carlos Stevens RN. She feels well today. Denies dizziness, lightheadedness. Has ambulated to the bathroom with no issues. Denies CP, palpitations, or dyspnea. Family History: Unchanged from Admission Social History: Unchanged from Admission Past Medical History: Unchanged from Admission Objective Active Medications: Aspirin (Aspirin Tab*) 325 mg PO DAILY [facility] Last Admin: 12/09/19 09:36 Dose: 325 mg Carvedilol (Coreg Tab*) 3.125 mg PO BID [facility] Last Admin: 12/09/19 09:31 Dose: Not Given Escitalopram Oxalate (Lexapro *) 5 mg PO DAILY [facility]; Protocol Last Admin: 12/09/19 09:36 Dose: 5 mg Vital Signs - 8 hr 12/09/19 12/09/19 12/09/19 06:01 06:03 07:15 Temperature 98.3 F Pulse Rate 59 69 59 Respiratory 16 Rate Blood Pressure 152/77 77/45 159/80 (mmHg) O2 Sat by Pulse 99 Oximetry 12/09/19 12/09/19 12/09/19 08:00 09:48 09:49 Temperature Pulse Rate 115 57 Respiratory 16 Rate Blood Pressure 124/93 78/55 (mmHg) O2 Sat by Pulse Oximetry Oxygen Devices in Use Now: None Appearance: Pleasant elderly lady sitting up in bed in NAD Eyes: No Scleral Icterus Ears/Nose/Mouth/Throat: Mucous Membranes Moist Neck: Trachea Midline Respiratory: Symmetrical Chest Expansion and Respiratory Effort, Clear to Auscultation Cardiovascular: RRR - Normal S1 and S2 Abdominal: NL Sounds; No Tenderness; No Distention Neurological: Alert and Oriented x 3, NL Muscle Strength and Tone Result Diagrams: 12/08/19 17:52 12/09/19 05:45 Assess/Plan/Problems-Billing Assessment: Mrs Montaño is an 89yo F with PMH of Afib not on AC due to GI bleed, CAD s/p CABG, HTN, CVA, HFrEF who presented to ED after a syncopal episode, found to have orthostatic hypotension due to overdiuresis. - Patient Problems (1) Syncope Comment: - In the setting of HFrEF and overdiuresis with orthostatic hypotension. - Seen by Cardiology as outpatient on 12/04/2019 and Furosemide was reduced to 3x/week, but still developed syncope. She has severe MR, TR with RV dysfunction on top of her EF 30% - she was referred to see Dr Fisher for possible MV repair, but unclear if candidate. - Will discuss with Cardiology if Midodrine is appropriate. (2) EMELY (acute kidney injury) Comment: - Pre renal in the setting of overdiuresis. - Renal function close to baseline now. (3) DVT prophylaxis Comment: - SCDs. (4) DNR (do not resuscitate) Status and Disposition: OBV
--- NOTE | 2019-12-09 17:34 | PN ---
Hospitalist Progress Note Date of Service: 12/09/19 HOSPITALIST ADDENDUM Son (Fidel Montaño) was called at [phone] and updated about his mother's condition. He's interested in Palliative care and a consult was requested with Dr Mckeon. We will meet tomorrow at 8AM to discuss it further.
[2019-12-09] MEDS: cefTRIAXone(*) 1 GM in NS 0.9% 50 ML* 50 ML IVPB SCH (17:45)
--- NOTE | 2019-12-10 01:14 | EEG ---
DATE OF STUDY: 12/09/19 - ROOM #440 PATIENT OF: Dr. Simpson. HISTORY: This is an 89-year-old woman being evaluated for near syncope and syncope multiple times. There was an episode where the patient stiffened and had eyes rolling back. During her last fall on 12/06/19, the patient was confused upon awakening. The study is done to evaluate for possible seizures. MEDICATIONS: Include: 1. Aspirin. 2. Coreg. 3. Escitalopram. INTERPRETATION: With the patient awake, background cerebral activity consisted of diffuse rhythm that reaches 8 Hz and there is further slowing into the slow theta range. No focal abnormalities, epileptiform potentials, major asymmetries of background are noted. CLINICAL IMPRESSION: Awake EEG shows no epileptiform potentials or major asymmetries of background. The generalized slowing on the tracing may be consistent with a mild generalized encephalopathy. The patient's age may be contributing to this slowing as well. [id number]/CPS #: [id number] MTDD
[2019-12-10 07:12] LABS: BUN/Creatinine Ratio 26.7 (8-20); EGFR African American 51.4 (>60); EGFR Non-African American 42.5 (>60); Potassium 3.9 mmol/L (3.5-5.0)
[2019-12-10] MEDS: Aspirin TAB* 325 MG PO SCH (08:17)
[2019-12-10] MEDS: Escitalopram * 5 MG TAB PO SCH (08:17)
[2019-12-10] MEDS: Carvedilol TAB* 3.125 MG PO SCH ×2 (08:17→20:42)
--- NOTE | 2019-12-10 12:11 | CONSULT ---
Palliative / Hospice Consult Ordering Provider: Suzanne Kelly - PCP-Josiah'Mirna Referal Reason: Goals of care/no bowel meds/no narcotics - Subjective Code Status: DNR Advance Directives Location: In Chart MOLST Part A Completed: Yes - on chart MOL[facility] Part E Completed:: Yes - on chart - History or Present Illness History or Present Illness: 89yo female with afib and CHF presents to ER with near syncope and multiple falls. PMH is significant for afib, CAD s/p quadruple bypass, ischemic cardiomyopathy EF 30-35%, mitral valve disease, HTN, CVA x 6 and mild dementia. PSHx-lives at 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 Studies ekg-afib, RBBB, H/H 12.5/37, BUN/Cr 38/ 1.42, egfr 35, troponin .03, BNP 610 and alb 3.8. Pt admitted with near syncope , dehydration, mild increase troponin and EMELY. Three prior ER visits for falls and ankle injury. All history is from the pt, family and medical record. Lab Values: Abnormal Lab Results 12/10/19 06:46 Sodium 136 Potassium 3.9 Chloride 104 Carbon Dioxide 24 Anion Gap 8 BUN 32 H Creatinine 1.20 H Est GFR ( Amer) 51.4 Est GFR (Non-Af Amer) 42.5 BUN/Creatinine Ratio 26.7 H Glucose 85 Calcium 9.0 Laboratory Last Values WBC 5.7 10^3/uL (3.5-10.8) 12/08/19 17:52 RBC 4.16 10^6 /uL (3.70-4.87) 12/08/19 17:52 Hgb 12.5 g/dL (12.0-16.0) 12/08/19 17:52 Hct 37 % (35-47) 12/08/19 17:52 MCV 89 fL (80-97) 12/08/19 17:52 MCH 30 pg (27-31) 12/08/19 17:52 MCHC 34 g/dL (31-36) 12/08/19 17:52 RDW 15 % (10-15) 12/08/19 17:52 Plt Count 158 10^3/uL (150-450) 12/08/19 17:52 MPV 8.6 fL (7.4-10.4) 12/08/19 17:52 Neut % (Auto) 57.2 % 12/08/19 17:52 Lymph % (Auto) 28.3 % 12/08/19 17:52 Carlton % (Auto) 11.8 % 12/08/19 17:52 Eos % (Auto) 1.8 % 12/08/19 17:52 Baso % (Auto) 0.9 % 12/08/19 17:52 Absolute Neuts (auto) 3.3 10^3/ul (1.5-7.7) 12/08/19 17:52 Absolute Lymphs (auto) 1.6 10^3/ul (1.0-4.8) 12/08/19 17:52 Absolute Monos (auto) 0.7 10^3/ul (0-0.8) 12/08/19 17:52 Absolute Eos (auto) 0.1 10^3/ul (0-0.6) 12/08/19 17:52 Absolute Basos (auto) 0.1 10^3/ul (0-0.2) 12/08/19 17:52 Absolute Nucleated RBC 0.0 10^3/ul 12/08/19 17:52 Nucleated RBC % 0.1 12/08/19 17:52 Sodium 136 mmol/L (135-145) 12/10/19 06:46 Potassium 3.9 mmol/L (3.5-5.0) 12/10/19 06:46 Chloride 104 mmol/L (101-111) 12/10/19 06:46 Carbon Dioxide 24 mmol/L (22-32) 12/10/19 06:46 Anion Gap 8 mmol/L (2-11) 12/10/19 06:46 BUN 32 mg/dL (6-24) H 12/10/19 06:46 Creatinine 1.20 mg/dL (0.51-0.95) H 12/10/19 06:46 Est GFR ( Amer) 51.4 (>60) 12/10/19 06:46 Est GFR (Non-Af Amer) 42.5 (>60) 12/10/19 06:46 BUN/Creatinine Ratio 26.7 (8-20) H 12/10/19 06:46 Glucose 85 mg/dL (70-100) 12/10/19 06:46 Calcium 9.0 mg/dL (8.6-10.3) 12/10/19 06:46 Phosphorus 2.8 mg/dL (2.5-5.0) 12/09/19 05:45 Magnesium 2.0 mg/dL (1.9-2.7) 12/09/19 05:45 Total Bilirubin 0.90 mg/dL (0.2-1.0) 12/08/19 17:52 AST 17 U/L (13-39) 12/08/19 17:52 ALT 8 U/L (7-52) 12/08/19 17:52 Alkaline Phosphatase 88 U/L (34-104) 12/08/19 17:52 Troponin I 0.03 ng/mL (<0.03) H* 12/09/19 05:45 B-Natriuretic Peptide 610 pg/mL (<=100) H 12/08/19 17:52 Total Protein 7.3 g/dL (6.4-8.9) 12/08/19 17:52 Albumin 3.8 g/dL (3.2-5.2) 12/08/19 17:52 Globulin 3.5 g/dL (2-4) 12/08/19 17:52 Albumin/Globulin Ratio 1.1 (1-3) 12/08/19 17:52 TSH 2.07 mcIU/mL (0.34-5.60) 12/09/19 05:45 Urine Color Feli 12/08/19 17:55 Urine Appearance Turbid 12/08/19 17:55 Urine pH 7.0 (5-9) 12/08/19 17:55 Ur Specific [place] 1.014 (1.010-1.030) 12/08/19 17:55 Urine Protein 1+(30 mg/dl) (Negative) A 12/08/19 17:55 Urine Ketones Trace (Negative) A 12/08/19 17:55 Urine Blood 1+ (Negative) A 12/08/19 17:55 Urine Nitrate Negative (Negative) 12/08/19 17:55 Urine Bilirubin Negative (Negative) 12/08/19 17:55 Urine Urobilinogen Positive (Negative) A 12/08/19 17:55 Ur Leukocyte Esterase Negative (Negative) 12/08/19 17:55 Urine WBC (Auto) 1+(6-10/hpf) (Absent) A 12/08/19 17:55 Urine RBC (Auto) Trace(0-2/hpf) (Absent) 12/08/19 17:55 Ur Squamous Epith Cells Present (Absent) A 12/08/19 17:55 Urine Bacteria 3+ (Absent) A 12/08/19 17:55 Hyaline Casts Present (Absent) A 12/08/19 17:55 Urine Glucose Negative (Negative) 12/08/19 17:55 - Objective Active Medications: Aspirin (Aspirin Tab*) 325 mg PO DAILY [facility] Last Admin: 12/10/19 08:17 Dose: 325 mg Carvedilol (Coreg Tab*) 3.125 mg PO BID [facility] Last Admin: 12/10/19 08:17 Dose: 3.125 mg Escitalopram Oxalate (Lexapro *) 5 mg PO DAILY [facility]; Protocol Last Admin: 12/10/19 08:17 Dose: 5 mg Ceftriaxone Sodium 1 gm/ (Sodium Chloride) 50 mls @ 100 mls/hr IVPB Q24H [facility] Last Admin: 12/09/19 17:45 Dose: 100 mls/hr Vital Signs: Vital Signs: Temp Pulse Resp BP Pulse Ox 97.5 F 49 14 92/59 98 12/10/19 07:15 12/10/19 11:55 12/10/19 07:45 12/10/19 11:55 12/10/19 07:15 Patient Weight: Weight 54.068 kg Intake and Output: Intake & Output 12/08/19 12/09/19 12/10/19 12/11/19 06:59 06:59 06:59 06:59 Intake Total 0 2039 240 Balance 0 2039 240 Weight 54.068 kg Intake: Oral 0 2039 240 Other: Estimated Void Medium Medium # Bowel Movements 1 Estimated Stool Amount Large # Voids 1 1 ADLs: Meal Record Start: 12/08/19 20: 48 Freq: DAILY@0900,1400,1800 Status: Active Protocol: Created 12/08/19 20:48 System (Rec: 12/08/19 20:48 System [id number]) Document 12/09/19 09:00 [id number] (Rec: 12/09/19 11:46 [id number] TELE-C07) Document 12/09/19 13:32 [id number] (Rec: 12/09/19 13:32 [id number] TELE-C07) Document 12/09/19 18:00 [id number] (Rec: 12/09/19 18:11 [id number] TELE-C07) Document 12/10/19 09:00 [id number] (Rec: 12/10/19 10:06 [id number] TELE-C03) Intake and Output Start: 12/08/19 17: 23 Freq: Status: Active Protocol: Created 12/08/19 17:23 System (Rec: 12/08/19 17:23 System [id number]) Intake and Output Start: 12/08/19 20: 48 Freq: DAILY@0600,1400,2200 Status: Active Protocol: Created 12/08/19 20:48 System (Rec: 12/08/19 20:48 System [id number]) Document 12/08/19 22:00 [id number] (Rec: 12/09/19 04:25 [id number] MED-M26) Document 12/09/19 05:13 [id number] (Rec: 12/09/19 05:14 [id number] TELE-C06) Document 12/09/19 05:20 [id number] (Rec: 12/09/19 05:21 [id number] TELE-C13) Document 12/09/19 14:00 [id number] (Rec: 12/09/19 14:32 [id number] TELE-C07) Document 12/09/19 22:00 [id number] (Rec: 12/09/19 22:52 [id number] MED-M26) Document 12/10/19 06:00 [id number] (Rec: 12/10/19 06:24 [id number] TELE-C03) Eyes: No Scleral Icterus Ears/Nose/Mouth/Throat: Mucous Membranes Moist Neck: Trachea Midline Respiratory: Symmetrical Chest Expansion and Respiratory Effort Abdominal: NL Sounds; No Tenderness; No Distention Neurological: Alert and Oriented x 3, NL Muscle Strength and Tone - Assessment Assessment: 89yo female with CHF and mitral valve disease admitted with near syncope due to dehydration - Plan Consult Plan (MU): Palliative Plan: Long discussion with pt's 2 sons Fidel and Will who are pt's HCP about goals of care. They are interested in rehab in a correction facility [facility] or [facility] [place]. We also discussed options after rehab which include home with VNS, home with hospice or SNF with hospice. Information/brochure given about hospice. They are familiar with hospice from their [facility] Pt is angry about hospice and not interested as of now. Pt lives at [facility] with an aide that checks in with her 3x a day. They will need more aide support if pt goes home. Also spoke with pt who said she knows her health is going "down the slide" and she is not interested in valve replacement. Doesn't want hospice as of now but would like to go back to [facility]. Also talked about moving to be closer to her son in [place] but she refused. Pt may be eligible for hospice with a diagnosis of mitral valve disease not wanting intervention, CHF EF 30% and extensive cardiac disease and CVAs. KPS 50%, PPS 50% - Time On Unit Date of Evaluation: 12/10/19 Hospice Consult Time in: 11:00 Hospice Consult Time Out: 12:00 Hospice Consult Time Total: 60 > 50% of Time Spend In Counseling or Coordinating Care: Yes
--- NOTE | 2019-12-10 13:49 | PN ---
Subjective Date of Service: 12/10/19 Interval History: HOSPITALIST PROGRESS NOTE Patient seen and examined at bedside. Care reviewed and d/w Carlos Stevens RN. She is in good spirits, states she had a good night. Breathing is easy, denies CP or pressure. Stood up for orthostatic VS earlier today, but has not worked with PT yet. Family History: Unchanged from Admission Social History: Unchanged from Admission Past Medical History: Unchanged from Admission Objective Active Medications: Aspirin (Aspirin Tab*) 325 mg PO DAILY [facility] Last Admin: 12/10/19 08:17 Dose: 325 mg Carvedilol (Coreg Tab*) 3.125 mg PO BID [facility] Last Admin: 12/10/19 08:17 Dose: 3.125 mg Escitalopram Oxalate (Lexapro *) 5 mg PO DAILY [facility]; Protocol Last Admin: 12/10/19 08:17 Dose: 5 mg Ceftriaxone Sodium 1 gm/ (Sodium Chloride) 50 mls @ 100 mls/hr IVPB Q24H [facility] Last Admin: 12/09/19 17:45 Dose: 100 mls/hr Vital Signs - 8 hr 12/10/19 12/10/19 12/10/19 06:13 06:16 06:17 Temperature Pulse Rate 60 84 74 Respiratory Rate Blood Pressure 175/81 140/80 139/73 (mmHg) O2 Sat by Pulse 100 98 98 Oximetry 12/10/19 12/10/19 12/10/19 07:15 07:45 08:21 Temperature 97.5 F Pulse Rate 59 Respiratory 16 14 Rate Blood Pressure 181/80 168/80 (mmHg) O2 Sat by Pulse 98 Oximetry 12/10/19 11:55 Temperature Pulse Rate 49 Respiratory Rate Blood Pressure 92/59 (mmHg) O2 Sat by Pulse Oximetry Oxygen Devices in Use Now: None Appearance: Elderly lady lying in bed in NAD Eyes: No Scleral Icterus Ears/Nose/Mouth/Throat: Mucous Membranes Moist Neck: Trachea Midline Respiratory: Symmetrical Chest Expansion and Respiratory Effort, - - BS+ bilaterally with bibasilar crackles Cardiovascular: RRR - Normal S1 and S2, +SM Abdominal: NL Sounds; No Tenderness; No Distention Extremities: No Edema Neurological: NL Muscle Strength and Tone Result Diagrams: 12/08/19 17:52 12/10/19 06:46 Microbiology and Other Data: Microbiology 12/08/19 19:50 Nasal Screen MRSA (PCR) - Final Nasal Mrsa Not Detected Assess/Plan/Problems-Billing Assessment: Mrs Montaño is an 89yo F with PMH of Afib not on AC due to GI bleed, CAD s/p CABG, HTN, CVA, HFrEF who presented to ED after a syncopal episode, found to have orthostatic hypotension due to overdiuresis. - Patient Problems (1) Syncope Comment: - In the setting of HFrEF and overdiuresis with orthostatic hypotension. - Seen by Cardiology as outpatient on 12/04/2019 and Furosemide was reduced to 3x/week, but still developed syncope. She has severe MR, TR with RV dysfunction on top of her EF 30% - she was referred to see Dr Fisher for possible MV repair, but unclear if candidate. - Conversation with Dr Keyes 12/09/2019 - Midodrine can cause more side effects than benefits. Lengthy conversation with patient and sons at bedside today. Inclined not to pursue any aggressive measures, but interested in medication optimization and rehab. Will give Coreg, and recheck BP later to decide if will resume Aldactone as I'm concerned she will progress to fluid overload again. - Palliative care consult requested. (2) EMELY (acute kidney injury) Comment: - Pre renal in the setting of overdiuresis. - Renal function close to baseline now. (3) DVT prophylaxis Comment: - SCDs. (4) DNR (do not resuscitate) Status and Disposition: Change to inpatient. 40 minutes patient care, > half of the time face to face with patient and coordination of care.
[2019-12-10] MEDS: cefTRIAXone(*) 1 GM in NS 0.9% 50 ML* 50 ML IVPB SCH (17:39)
[2019-12-11] MEDS ORDERED: hydrALAZINE IV* 20 MG/ML VIAL IV SLOW PU ONE (04:03)
[2019-12-11] MEDS: Carvedilol TAB* 3.125 MG PO SCH (06:06)
[2019-12-11 06:35] LABS: BUN/Creatinine Ratio 25.8 (8-20); Calcium 8.8 mg/dL (8.6-10.3); EGFR African American 51.4 (>60); EGFR Non-African American 42.5 (>60)
[2019-12-11] MEDS: Escitalopram * 5 MG TAB PO SCH (09:01)
[2019-12-11] MEDS: Aspirin TAB* 325 MG PO SCH (09:01)
--- NOTE | 2019-12-11 12:36 | PN ---
Subjective Date of Service: 12/11/19 Interval History: HOSPITALIST PROGRESS NOTE Patient seen and examined at bedside. Care reviewed and d/w Anita Colvin RN. She offers no new complaints today, but as per RN, she was near syncopal yesterday when trying to get up with PT. Family History: Unchanged from Admission Social History: Unchanged from Admission Past Medical History: Unchanged from Admission Objective Active Medications: Aspirin (Aspirin Tab*) 325 mg PO DAILY [facility] Last Admin: 12/11/19 09:01 Dose: 325 mg Carvedilol (Coreg Tab*) 3.125 mg PO Q12H [facility] Escitalopram Oxalate (Lexapro *) 5 mg PO DAILY [facility]; Protocol Last Admin: 12/11/19 09:01 Dose: 5 mg Ceftriaxone Sodium 1 gm/ (Sodium Chloride) 50 mls @ 100 mls/hr IVPB Q24H [facility] Last Admin: 12/10/19 17:39 Dose: 100 mls/hr Vital Signs - 8 hr 12/11/19 12/11/19 12/11/19 06:03 06:05 06:07 Temperature Pulse Rate Respiratory Rate Blood Pressure 185/90 181/83 186/87 (mmHg) O2 Sat by Pulse Oximetry 12/11/19 12/11/19 12/11/19 06:11 07:57 08:00 Temperature 98.2 F Pulse Rate 61 Respiratory 16 20 Rate Blood Pressure 156/64 169/79 (mmHg) O2 Sat by Pulse 100 Oximetry 12/11/19 12/11/19 12/11/19 09:56 09:59 10:01 Temperature Pulse Rate 54 60 68 Respiratory Rate Blood Pressure 156/64 141/58 98/57 (mmHg) O2 Sat by Pulse Oximetry 12/11/19 12/11/19 12/11/19 11:30 12:02 12:05 Temperature 97.6 F Pulse Rate 57 63 65 Respiratory 16 Rate Blood Pressure 171/72 152/67 168/85 (mmHg) O2 Sat by Pulse 99 Oximetry 12/11/19 12:07 Temperature Pulse Rate 72 Respiratory Rate Blood Pressure 144/59 (mmHg) O2 Sat by Pulse Oximetry Oxygen Devices in Use Now: None Appearance: Elderly lady sitting up in bed in NAD Eyes: No Scleral Icterus Ears/Nose/Mouth/Throat: Mucous Membranes Moist Neck: Trachea Midline Respiratory: Symmetrical Chest Expansion and Respiratory Effort, - - BS+ bilaterally with bibasilar crackles Cardiovascular: RRR - Normal S1 and S2, +SM Abdominal: NL Sounds; No Tenderness; No Distention Extremities: No Edema Neurological: Alert and Oriented x 3, NL Muscle Strength and Tone Result Diagrams: 12/08/19 17:52 12/11/19 05:50 Microbiology and Other Data: Microbiology 12/08/19 19:50 Nasal Screen MRSA (PCR) - Final Nasal Mrsa Not Detected Assess/Plan/Problems-Billing Assessment: Mrs Montaño is an 89yo F with PMH of Afib not on AC due to GI bleed, CAD s/p CABG, HTN, CVA, HFrEF who presented to ED after a syncopal episode, found to have orthostatic hypotension due to overdiuresis. - Patient Problems (1) Syncope Comment: - In the setting of HFrEF and overdiuresis with orthostatic hypotension. - Seen by Cardiology as outpatient on 12/04/2019 and Furosemide was reduced to 3x/week, but still developed syncope. She has severe MR, TR with RV dysfunction on top of her EF 30% - she was referred to see Dr Fisher for possible MV repair, but not interested in procedures. - Conversation with Dr Keyes 12/09/2019 - Midodrine can cause more side effects than benefits. Lengthy conversation with patient and sons at bedside . Inclined not to pursue any aggressive measures, but interested in medication optimization and rehab. - Palliative care consult appreciated. - Cardiology consult requested to see what other options, if any, are available. - Orthostatic hypotension is still the major issue - will place thigh high stockings and talk about Midodrine again. (2) EMELY (acute kidney injury) Comment: - Pre renal in the setting of overdiuresis. - Renal function close to baseline now. (3) DVT prophylaxis Comment: - SCDs. (4) DNR (do not resuscitate) Status and Disposition: Inpatient.
--- NOTE | 2019-12-11 17:42 | CONS ---
CC: Dr. Latrell Barrios; Dr. Breanna Isabel; Hospitalist; Dr. Fisher CONSULTATION NOTE: DATE OF CONSULT: 12/11/19 REASON FOR CONSULT: Orthostatic hypotension. HISTORY OF PRESENT ILLNESS: Ms. Mely Montaño is an 89-year-old woman followed for many years by my partner, Dr. Latrell Barrios. She has coronary artery disease, chronic AFib and known cardiomyopathy for many years. The patient has been intolerant to many medications impacting on optimizing her regimen for cardiomyopathy. In October 2019, the patient's legs were edematous. Diuretics were initiated and then earlier this month, the diuretic dose was lowered. The patient had lost 11 pounds on Lasix 20 mg a day over 2 weeks and then fell walking to the bathroom. The patient's diuretics were backed off to Lasix 3 days a week and Aldactone daily, but the patient had another episode the next day on 12/08/19 where she had a fall with syncope versus near syncope (unwitnessed). In the hospital, the patient was noted to have marked orthostatic blood pressure changes, high blood pressures lying or sitting and 60 point drops with standing (per Dr. Barrios, this is not new). The patient had her diuretics completely stopped, was given IV hydration, but despite these measures, she continues to have significant orthostatic changes. I saw her just after her orthostatics were checked today and she denied feeling dizzy when standing today, but there are concerns of how to get her back to [facility] under independent living with recurrent falling and syncopal episodes and persistent marked orthostatic changes. The patient denies chest pain, pressure, heaviness. She says she sleeps well and she says she sleeps flat, but her niece who is present with her says that typically she will sleep in a recliner chair at [facility]. PAST MEDICAL HISTORY: The patient has a past medical history: 1. Coronary artery disease, status post bypass surgery in 2005 (Dr. Jono Epperson), HSU to the LAD, saphenous vein graft to OM and saphenous vein graft to right coronary artery. 2. Atrial septal defect, secundum, status post repair in 2005. 3. Chronic atrial fibrillation, not on anticoagulation due to GI bleeding. 4. Mitral insufficiency since at least 2009. 5. Tricuspid insufficiency, marked since at least 2010. 6. Hypothyroid disease. 7. Dyslipidemia. 8. Hypertension. 9. Chronic intermittent congestive heart failure. 10. Long history of falling. 11. Stroke in 2014, unable to write with the right hand. 12. Clostridium difficile in 2002, status post knee replacement. PAST SURGICAL HISTORY: 1. CABG as above. 2. Knee replacement. 3. Right hip pinning. 4. Lens implantation. MEDICATIONS: Outpatient medications included: 1. Spironolactone 12.5 mg a day. 2. Lasix 20 mg 3 days a week. 3. Aspirin 81 mg a day. 4. Coenzyme Q p.r.n. 5. Vitamin B complex. 6. Magnesium. 7. Levo/lioth 49.25/0.75 SR 1 daily. 8. Coreg 3.125 mg b.i.d. 9. Escitalopram 5 mg a day. Inpatient medications include: 1. Aspirin 325 mg a day. 2. Ceftriaxone IV. 3. Lexapro 5 mg a day. 4. Coreg 3.125 mg b.i.d. ALLERGIES AND MEDICATION INTOLERANCE: Include MORPHINE, ATORVASTATIN, SIMVASTATIN, NIACIN, VALSARTAN, RAMIPRIL, LEVOFLOXACIN, AMLODIPINE. FAMILY HISTORY: Positive for diabetes and cardiac disease, sister had coronary disease at age 64, breast cancer in a sister and brother with heart problems. SOCIAL HISTORY: The patient is , has 2 supportive sons. Lives at [facility]. Former smoker, none recently. No current alcohol intake. REVIEW OF SYSTEMS: See above, but negative for orthopnea, PND and negative for chest pain, pressure, heaviness. She ambulates with a walker. She denies pain. Positive for recent marked lower extremity edema in October and recurrent falling. The patient is vague about circumstances for the falling. The patient denies fevers, chills, sweats, coughing, respiratory symptoms, hematuria, dysuria, diarrhea, or constipation. All other 14-point review of systems is negative. PHYSICAL EXAM: The patient is 5 feet 5 inches, weighs 119 pounds with a BMI of 20. Vital signs on arrival on 12/08/19, blood pressure 131/62, pulse is 55, respiratory rate is 16, oxygen saturation is 97% on room air. Orthostatic vitals obtained this morning showed blood pressure 156/64 with a pulse of 54 lying; sitting blood pressure 141/48 sitting and a pulse of 60; and standing blood pressure 90/57 with a pulse of 68. General Appearance: Thin, elderly woman, seated in a chair, niece is present, in no acute distress. Psychologically, pleasant and cooperative. Neurologically, awake, alert and oriented to person and place. I did not check for time. Speech is articulate. Comprehension is good. She follows commands well in the chair, I did not watch her ambulate. Skin: Warm and dry without appreciable cyanosis or rashes. HEENT: Mucous membranes moderately moist. Neck: Hard to evaluate even though thin, but no bounding JVD noted. Breath sounds had easily audible crackles in the left base, rare crackles in the right base and upper lung brothers are clear, though a bit distant. Coronary: S1, S2, irregular with a low pitched pansystolic murmur heard at the apex and slightly higher pitched, but still in the lower range, systolic murmur heard at the apex. I did not appreciate hepatomegaly, pulsatile liver, but she was in a seated position. There was no epigastric discomfort, no ascites. Normal bowel sounds. The abdomen was nontender. Lower extremities were free of edema with compression stockings on. DIAGNOSTIC STUDIES/LAB DATA: Echocardiogram from 11/25/19 showed an ejection fraction of 30% to 35% on the left, severe right ventricular hypokinesis and right ventricular dilatation. She has mild aortic valve stenosis, moderate-to- severe mitral insufficiency with mitral annular calcification and restriction and leaflet excursion, severe tricuspid insufficiency. Severe pulmonary hypertension estimated at 69 mmHg. She had [id number] pulmonic valve insufficiency. Chest x-ray not done this admission. Labs: White count 5.7, hematocrit 37, platelets 158. On arrival, sodium 137, potassium 3.3, BUN 38, creatinine 1.64, and troponin 0.04, troponin #2 is 0.03 and BNP of 610. Current electrolytes today, sodium 137, potassium 4.0, chloride 105, bicarb 26, BUN 31, creatinine 1.2, TSH 2.07. Urinalysis positive for protein, blood, urobilinogen, white cells and bacteria. Urine culture is positive for Klebsiella pneumoniae and Aerococcus. IMPRESSION: In summary, Mely Montaño is an 89-year-old woman admitted for recurrent falls, syncope/near syncope in the setting of severe biventricular heart failure and significant mitral and tricuspid insufficiency (chronic atrial fibrillation). I feel that Mely's relatively new right heart failure explains her relatively recent presentation with lower extremity edema followed by falling and orthostatic problems with diuresis. To prevent recurrent falling with her severe tricuspid insufficiency and severe RV hypokinesis, she is going to need to avoid overdiuresis. Her right ventricle needs preload to maintain blood pressure. I explained this to the patient and her niece that we would likely have her have some swelling in the legs in order to prevent dizziness, fainting and falling. Thigh high compression stockings were recommended and had already been initiated. Other potential suggestions would include stopping her Coreg to allow for increased heart rate. Potentially, we could replace with Corlanor which would not drop blood pressure or a low dose of a pure beta-juan. For the orthostasis itself, in addition to avoiding dehydration and a compression stockings and taking off beta-juan, I could consider adding midodrine/agree with Dr Miller's suggestion, I pulled up some papers that showed there is some improvement in heart failure and it does not lead to fluid retention the way Yudelkarajanikirk does. We are going to try a dose to see if there is improvement and then could initiate while as an inpatient and observe. In the big picture, one could question if a MitraClip could reverse or improve left heart failure and right heart failure, but as this has been going on so many years and now with such severe right heart failure and tricuspid insufficiency, my personal opinion is that she is now at end-stage biventricular failure. She has previously been referred to Dr. Fisher. The patient herself is not interested in any major procedures, but we/cardiology could certainly curbside Dr. Fisher as to his opinion if Renea and/or tricuspid clips were performed or does she have enough ventricular function left to lead to real improvement/reversal of left and right function. I did discuss Palliative and [facility] with the patient and as with her other practitioners, she is vehemently not interested. She wants to get back to [facility] where she is under independent living. The patient asked about the possibility of sudden , I said that I thought most likely her most recent falls were related to drops in blood pressure and not ventricular tachycardia. We did discuss that she certainly has significant risk of sudden . As per this discussion, she is hoping that she would of sudden . She is certainly not afraid of this. Additional recommendations will be made for this complex patient pending her response to the above measures. I discussed the patient and above issues and recommendations with Dr Barrios. Thank you for allowing me to assist. [id number]/[facility] #: [id number] LAURY
[2019-12-11] MEDS: cefTRIAXone(*) 1 GM in NS 0.9% 50 ML* 50 ML IVPB SCH (17:58)
[2019-12-11] MEDS ORDERED: Carvedilol TAB* 3.125 MG PO SCH (21:00)
[2019-12-11] MEDS ORDERED: Enalapril TAB* 5 MG PO ONE (21:39)
[2019-12-12] MEDS: Aspirin TAB* 325 MG PO SCH (09:14)
[2019-12-12] MEDS: Escitalopram * 5 MG TAB PO SCH (09:14)
--- NOTE | 2019-12-12 10:43 | PN ---
Subjective Date of Service: 12/12/19 Interval History: HOSPITALIST PROGRESS NOTE Patient seen and examined at bedside. Care reviewed and d/w Anita Colvin RN. She is depressed today. She tells me she's having a difficult time dealing with all the information she's been giving, especially accepting how advanced her heart disease is. Otherwise she offers no complaints. Denies CP, palpitations, dyspnea. Family History: Unchanged from Admission Social History: Unchanged from Admission Past Medical History: Unchanged from Admission Objective Active Medications: Aspirin (Aspirin Tab*) 325 mg PO DAILY [facility] Last Admin: 12/12/19 09:14 Dose: 325 mg Escitalopram Oxalate (Lexapro *) 5 mg PO DAILY [facility]; Protocol Last Admin: 12/12/19 09:14 Dose: 5 mg Ceftriaxone Sodium 1 gm/ (Sodium Chloride) 50 mls @ 100 mls/hr IVPB Q24H [facility] Last Admin: 12/11/19 17:58 Dose: 100 mls/hr Midodrine (Midodrine) 5 mg PO TID [facility]; Protocol Last Admin: 12/12/19 09:14 Dose: 5 mg Vital Signs - 8 hr 12/12/19 12/12/19 12/12/19 03:03 08:00 08:57 Temperature 97.6 F 97.9 F Pulse Rate 55 52 Respiratory 16 18 18 Rate Blood Pressure 110/29 173/78 (mmHg) O2 Sat by Pulse 98 98 Oximetry 12/12/19 12/12/19 12/12/19 08:58 09:01 09:03 Temperature Pulse Rate 52 71 88 Respiratory Rate Blood Pressure 173/78 141/67 107/72 (mmHg) O2 Sat by Pulse Oximetry Oxygen Devices in Use Now: None Appearance: Pleasant elderly lady sitting up in a recliner in NAD Eyes: No Scleral Icterus Ears/Nose/Mouth/Throat: Mucous Membranes Moist Neck: Trachea Midline Respiratory: Symmetrical Chest Expansion and Respiratory Effort, Clear to Auscultation Cardiovascular: RRR - Normal S1 and S2 Abdominal: NL Sounds; No Tenderness; No Distention Extremities: No Edema Neurological: Alert and Oriented x 3, NL Muscle Strength and Tone Result Diagrams: 12/08/19 17:52 12/11/19 05:50 Microbiology and Other Data: Microbiology 12/08/19 19:50 Nasal Screen MRSA (PCR) - Final Nasal Mrsa Not Detected Assess/Plan/Problems-Billing Assessment: Mrs Montaño is an 89yo F with PMH of Afib not on AC due to GI bleed, CAD s/p CABG, HTN, CVA, HFrEF who presented to ED after a syncopal episode, found to have orthostatic hypotension due to overdiuresis. - Patient Problems (1) Syncope Comment: - In the setting of HFrEF and overdiuresis with orthostatic hypotension. - Seen by Cardiology as outpatient on 12/04/2019 and Furosemide was reduced to 3x/week, but still developed syncope. She has severe MR, TR with RV dysfunction on top of her EF 30% - she was referred to see Dr Fisher for possible MV repair, but not interested in procedures. - Conversation with Dr Keyes 12/09/2019 - Midodrine can cause more side effects than benefits. Lengthy conversation with patient and sons at bedside . Inclined not to pursue any aggressive measures, but interested in medication optimization and rehab. - Palliative care consult appreciated. - Cardiology consult appreciated - lengthy conversation with Dr Fall and patient - trial of Midodrine 5mg TID. She may be more hypertensive, but she certainly needs the preload to keep her CO. Avoid overnight medications for her BP, especially if asymptomatic. (2) EMELY (acute kidney injury) Comment: - Pre renal in the setting of overdiuresis. - Renal function close to baseline now. (3) DVT prophylaxis Comment: - SCDs. (4) DNR (do not resuscitate) Status and Disposition: Inpatient.
[2019-12-12] MEDS: cefTRIAXone(*) 1 GM in NS 0.9% 50 ML* 50 ML IVPB SCH (17:36)
[2019-12-13 06:38] LABS: ABS Eosinophils 0.2 10^3/ul (0-0.6); ABS Lymphocytes 1.6 10^3/ul (1.0-4.8); ABS Monocytes 0.8 10^3/ul (0-0.8); ABS Neutrophils 3.4 10^3/ul (1.5-7.7); Eosinophil % 3.2 %; Hematocrit 35 % (35-47); Hemoglobin 11.9 g/dL (12.0-16.0); Lymphocyte % 26.6 %; Mean Corpuscular HGB Conc 34 g/dL (31-36); Mean Corpuscular Hemoglobin 31 pg (27-31); Mean Corpuscular Volume 89 fL (80-97); Mean Platelet Volume 8.6 fL (7.4-10.4); Platelet Count 157 10^3/uL (150-450); Red Cell Distribution Width 15 % (10-15)
[2019-12-13 07:08] LABS: BUN/Creatinine Ratio 27.9 (8-20); Calcium 9.1 mg/dL (8.6-10.3); EGFR African American 56.3 (>60); EGFR Non-African American 46.5 (>60); Potassium 4.4 mmol/L (3.5-5.0)
[2019-12-13] MEDS: Escitalopram * 5 MG TAB PO SCH (08:59)
[2019-12-13] MEDS: Aspirin TAB* 325 MG PO SCH (08:59)
--- NOTE | 2019-12-13 13:04 | PN ---
Subjective Date of Service: 12/13/19 Interval History: HOSPITALIST PROGRESS NOTE Patient seen and examined at bedside. Care reviewed and d/w Teresa Tapia RN. She is much brighter today. Had a good night of sleep. Denies CP, palpitations, or dyspnea. Was able to ambulate around the unit once with no near syncope. Family History: Unchanged from Admission Social History: Unchanged from Admission Past Medical History: Unchanged from Admission Objective Active Medications: Aspirin (Aspirin Tab*) 325 mg PO DAILY [facility] Last Admin: 12/13/19 08:59 Dose: 325 mg Escitalopram Oxalate (Lexapro *) 5 mg PO DAILY [facility]; Protocol Last Admin: 12/13/19 08:59 Dose: 5 mg Ceftriaxone Sodium 1 gm/ (Sodium Chloride) 50 mls @ 100 mls/hr IVPB Q24H [facility] Last Admin: 12/12/19 17:36 Dose: 100 mls/hr Midodrine (Midodrine) 5 mg PO TID [facility]; Protocol Last Admin: 12/13/19 08:59 Dose: 5 mg Vital Signs - 8 hr 12/13/19 12/13/19 12/13/19 06:00 07:15 07:39 Temperature Pulse Rate 66 67 77 Respiratory Rate Blood Pressure 173/59 177/72 143/59 (mmHg) O2 Sat by Pulse Oximetry 12/13/19 12/13/19 12/13/19 07:42 08:00 11:30 Temperature 97.3 F 97.1 F Pulse Rate 69 57 Respiratory 18 18 18 Rate Blood Pressure 178/66 157/75 (mmHg) O2 Sat by Pulse 100 98 Oximetry Oxygen Devices in Use Now: None Appearance: Pleasant elderly lady sitting up in bed in NAD Eyes: No Scleral Icterus Ears/Nose/Mouth/Throat: Mucous Membranes Moist Neck: Trachea Midline Respiratory: Symmetrical Chest Expansion and Respiratory Effort, - - BS+ bilaterally with bibasilar crackles Cardiovascular: RRR - Normal S1 and S2 Abdominal: NL Sounds; No Tenderness; No Distention Extremities: No Edema Neurological: Alert and Oriented x 3, NL Muscle Strength and Tone Result Diagrams: 12/13/19 06:07 12/13/19 06:07 Assess/Plan/Problems-Billing Assessment: Mrs Montaño is an 89yo F with PMH of Afib not on AC due to GI bleed, CAD s/p CABG, HTN, CVA, HFrEF who presented to ED after a syncopal episode, found to have orthostatic hypotension due to overdiuresis. - Patient Problems (1) Syncope Comment: - In the setting of HFrEF and overdiuresis with orthostatic hypotension. - Seen by Cardiology as outpatient on 12/04/2019 and Furosemide was reduced to 3x/week, but still developed syncope. She has severe MR, TR with RV dysfunction on top of her EF 30% - she was referred to see Dr Fisher for possible MV repair, but not interested in procedures. - Conversation with Dr Keyes 12/09/2019 - Midodrine can cause more side effects than benefits. Lengthy conversation with patient and sons at bedside . Inclined not to pursue any aggressive measures, but interested in medication optimization and rehab. - Palliative care consult appreciated. - Cardiology consult appreciated - lengthy conversation with Dr Fall and patient - trial of Midodrine 5mg TID. She may be more hypertensive, but she certainly needs the preload to keep her CO. Avoid overnight medications for her BP, especially if asymptomatic. - Seems to be responding well to Midodrine so far, with no untoward effects. (2) EMELY (acute kidney injury) Comment: - Pre renal in the setting of overdiuresis. - Renal function back to baseline. (3) DVT prophylaxis Comment: - SCDs. (4) DNR (do not resuscitate) Status and Disposition: Inpatient. If she continues to respond well to Midodrine, anticipate d/c to [facility] tomorrow.
[2019-12-13] MEDS: cefTRIAXone(*) 1 GM in NS 0.9% 50 ML* 50 ML IVPB SCH (17:28)
[2019-12-14] MEDS: Aspirin TAB* 325 MG PO SCH (07:51)
[2019-12-14] MEDS: Escitalopram * 5 MG TAB PO SCH (07:51)
--- NOTE | 2019-12-14 11:06 | PN ---
Subjective Date of Service: 12/14/19 Interval History: HOSPITALIST PROGRESS NOTE Patient seen and examined at bedside. Care reviewed and d/w Jacqui Hamilton RN. She was near syncopal again this AM when checking orthostatics. Family History: Unchanged from Admission Social History: Unchanged from Admission Past Medical History: Unchanged from Admission Objective Active Medications: Aspirin (Aspirin Tab*) 325 mg PO DAILY [facility] Last Admin: 12/14/19 07:51 Dose: 325 mg Escitalopram Oxalate (Lexapro *) 5 mg PO DAILY [facility]; Protocol Last Admin: 12/14/19 07:51 Dose: 5 mg Ceftriaxone Sodium 1 gm/ (Sodium Chloride) 50 mls @ 100 mls/hr IVPB Q24H [facility] Last Admin: 12/13/19 17:28 Dose: 100 mls/hr Midodrine (Midodrine) 5 mg PO TID [facility]; Protocol Last Admin: 12/14/19 07:51 Dose: 5 mg Vital Signs - 8 hr 12/14/19 12/14/19 12/14/19 03:15 03:35 07:24 Temperature 97.7 F Pulse Rate 64 64 Respiratory 19 16 Rate Blood Pressure 96/80 175/73 (mmHg) O2 Sat by Pulse 97 Oximetry 12/14/19 12/14/19 07:26 09:44 Temperature 98.3 F Pulse Rate 71 111 Respiratory 16 Rate Blood Pressure 188/85 78/37 (mmHg) O2 Sat by Pulse 96 Oximetry Oxygen Devices in Use Now: None Appearance: Pleasant elderly lady sitting up in recliner in NAD Eyes: No Scleral Icterus Ears/Nose/Mouth/Throat: Mucous Membranes Moist Neck: Trachea Midline Respiratory: Symmetrical Chest Expansion and Respiratory Effort, Clear to Auscultation Cardiovascular: RRR - Normal S1 and S2 Abdominal: NL Sounds; No Tenderness; No Distention Extremities: No Edema Neurological: Alert and Oriented x 3, NL Muscle Strength and Tone Result Diagrams: 12/13/19 06:07 12/13/19 06:07 Assess/Plan/Problems-Billing Assessment: Mrs Montaño is an 89yo F with PMH of Afib not on AC due to GI bleed, CAD s/p CABG, HTN, CVA, HFrEF who presented to ED after a syncopal episode, found to have orthostatic hypotension due to overdiuresis. - Patient Problems (1) Syncope Comment: - In the setting of HFrEF and overdiuresis with orthostatic hypotension. - Seen by Cardiology as outpatient on 12/04/2019 and Furosemide was reduced to 3x/week, but still developed syncope. She has severe MR, TR with RV dysfunction on top of her EF 30% - she was referred to see Dr Fisher for possible MV repair, but not interested in procedures. - Conversation with Dr Keyes 12/09/2019 - Midodrine can cause more side effects than benefits. Lengthy conversation with patient and sons at bedside . Inclined not to pursue any aggressive measures, but interested in medication optimization and rehab. - Palliative care consult appreciated. - Cardiology consult appreciated - lengthy conversation with Dr Fall and patient - trial of Midodrine 5mg TID. She may be more hypertensive, but she certainly needs the preload to keep her CO. Avoid overnight medications for her BP, especially if asymptomatic. - Her near syncopal episode today was in the setting of checking orthostatics without compression stockings. When repeated with stockings on, she was still orthostatic, but with less variation. D/w Cardiology - will increase Midodrine to 7.5mg in AM, 5mg afternoon and evening and monitor. (2) EMELY (acute kidney injury) Comment: - Pre renal in the setting of overdiuresis. - Renal function back to baseline. (3) DVT prophylaxis Comment: - SCDs. (4) DNR (do not resuscitate) Status and Disposition: Inpatient. Anticipate d/c to [facility] when stable.
--- NOTE | 2019-12-14 16:10 | PN ---
Subjective Date of Service: 12/14/19 - CC: hypotension. Interval History: Pt lethargic, sleeping. Denies SOB, says she eating enough, sleeping well. Medications Active Medications: Aspirin (Aspirin Tab*) 325 mg PO DAILY [facility] Last Admin: 12/14/19 07:51 Dose: 325 mg Escitalopram Oxalate (Lexapro *) 5 mg PO DAILY [facility]; Protocol Last Admin: 12/14/19 07:51 Dose: 5 mg Midodrine (Midodrine) 7.5 mg PO DAILY@0800 [facility]; Protocol Midodrine (Midodrine) 5 mg PO 1400,2100 [facility]; Protocol Objective Vital Signs: Temp Pulse Resp BP Pulse Ox 98.4 F 56 20 165/71 96 12/14/19 15:15 12/14/19 15:15 12/14/19 15:15 12/14/19 15:15 12/14/19 15:15 Vital Signs - 12 hr Temp Pulse Resp BP Pulse Ox 12/14/19 15:15 98.4 F 56 20 165/71 96 12/14/19 11:33 98.0 F 54 16 98 12/14/19 11:32 70 97/46 12/14/19 09:44 111 78/37 12/14/19 07:26 98.3 F 71 16 188/85 96 12/14/19 07:24 16 Intake and Output Last 24 Hours 12/12/19 12/13/19 12/14/19 12/15/19 04:59 04:59 04:59 04:59 Intake Total 1065 1030 440 240 Output Total 0 Balance 1065 1030 440 240 Intake: IV Fluids 30 ABX - CEFTRIAXONE 30 IVPB 55 50 ABX - CEFTRIAXONE 55 50 Oral 1010 1030 360 240 Output: Urine 0 Other: Estimated Void Medium Medium # Bowel Movements 1 1 Estimated Stool Amount Small # Voids 1 1 3 Oxygen Devices in Use Now: None Appearance: Elderly, thin, frail. Eyes: No Scleral Icterus, PERRLA Ears/Nose/Mouth/Throat: Clear Oropharnyx, Mucous Membranes Moist Neck: Trachea Midline, No Thyroid Enlargement, Masses Respiratory: Clear to Auscultation - laterally Cardiovascular: - - SM apex, LLSB, Abdominal: - - no HSM appreciated. Extremities: No Edema Skin: No Rash or Ulcers Neurological: - - Lying in recliner chair, opens eyes, one word/brief answers to question. Lines/Tubes/Other Access: Clean, Dry and Intact Peripheral IV Laboratory Results: 12/13/19 06:07 12/13/19 06:07 Total Bilirubin 0.90 mg/dL (0.2-1.0) 12/08/19 17:52 AST 17 U/L (13-39) 12/08/19 17:52 ALT 8 U/L (7-52) 12/08/19 17:52 Alkaline Phosphatase 88 U/L (34-104) 12/08/19 17:52 B-Natriuretic Peptide 610 pg/mL (<=100) H 12/08/19 17:52 Total Protein 7.3 g/dL (6.4-8.9) 12/08/19 17:52 Albumin 3.8 g/dL (3.2-5.2) 12/08/19 17:52 Globulin 3.5 g/dL (2-4) 12/08/19 17:52 Albumin/Globulin Ratio 1.1 (1-3) 12/08/19 17:52 TSH 2.07 mcIU/mL (0.34-5.60) 12/09/19 05:45 12/08/19 12/09/19 17:52 05:45 Troponin I 0.04 H* 0.03 H* Assessment/Plan 89 yo with recurrent falls, marked OS BP changes, severe BiV cardiomyopathy, chronic afib, significant MR, TR and pulmonary HTN. Some improvement with compression stockings, midodrine added and removal of diuretics, carvedilol. More OS today, but it turns out she didn't have compression stockings on. Agree with increasing Midodrine. Consideration of Corlinor for CHF as doesn't drop BP, is used off label for antonomic insufficienty, but not on formulary here. Consider Toprol XL 12.5 - 25 mg now or in the future. Consider not fully reclining/supine at night to minimize rise in BP w/sleep. See my consult for more comprehensive review.
[2019-12-15] MEDS: Aspirin TAB* 325 MG PO SCH (07:29)
[2019-12-15] MEDS: Escitalopram * 5 MG TAB PO SCH (07:29)
--- NOTE | 2019-12-15 11:48 | PN ---
Subjective Date of Service: 12/15/19 - CC: falling. BiV CHF Interval History: Pt seen with son, feels much better today. Not dizzy, no SOB, no orthopnea or PND. Medications Active Medications: Aspirin (Aspirin Tab*) 325 mg PO DAILY [facility] Last Admin: 12/15/19 07:29 Dose: 325 mg Escitalopram Oxalate (Lexapro *) 5 mg PO DAILY [facility]; Protocol Last Admin: 12/15/19 07:29 Dose: 5 mg Midodrine (Midodrine) 7.5 mg PO DAILY@0800 [facility]; Protocol Last Admin: 12/15/19 07:30 Dose: 7.5 mg Midodrine (Midodrine) 5 mg PO 1400,2100 [facility]; Protocol Last Admin: 12/14/19 21:49 Dose: 5 mg Objective Vital Signs: Temp Pulse Resp BP Pulse Ox 98.3 F 64 16 183/81 100 12/15/19 07:15 12/15/19 08:47 12/15/19 07:32 12/15/19 08:47 12/15/19 07:15 Vital Signs 12/14/19 12/14/19 12/14/19 15:15 17:57 19:30 Temperature 98.4 F 98.1 F Pulse Rate 56 63 74 Respiratory 20 14 Rate Blood Pressure 165/71 160/62 179/68 (mmHg) O2 Sat by Pulse 96 100 Oximetry 12/14/19 12/14/19 12/15/19 20:00 23:00 02:46 Temperature 98.5 F 97.2 F Pulse Rate 69 64 Respiratory 14 20 19 Rate Blood Pressure 169/94 173/80 (mmHg) O2 Sat by Pulse 98 99 Oximetry 12/15/19 12/15/19 12/15/19 07:15 07:32 08:47 Temperature 98.3 F Pulse Rate 57 57 Respiratory 18 16 Rate Blood Pressure 150/65 (mmHg) O2 Sat by Pulse 100 Oximetry OS vitals today: SBP dropped 175 to 150 lying to standing. Oxygen Devices in Use Now: None Appearance: Elderly, thin, frail, pale, seated in chair, animated appearance. Eyes: No Scleral Icterus, PERRLA Ears/Nose/Mouth/Throat: Clear Oropharnyx, Mucous Membranes Moist Neck: Trachea Midline, No Thyroid Enlargement, Masses Respiratory: - - diminished BS left base, distant throughout. Cardiovascular: - - SM apex, LLSB, Abdominal: - - no HSM appreciated. Extremities: No Edema Skin: No Rash or Ulcers Neurological: - - Lying in recliner chair, opens eyes, one word/brief answers to question. Lines/Tubes/Other Access: Clean, Dry and Intact Peripheral IV Laboratory Results: 12/13/19 06:07 12/13/19 06:07 Total Bilirubin 0.90 mg/dL (0.2-1.0) 12/08/19 17:52 AST 17 U/L (13-39) 12/08/19 17:52 ALT 8 U/L (7-52) 12/08/19 17:52 Alkaline Phosphatase 88 U/L (34-104) 12/08/19 17:52 B-Natriuretic Peptide 610 pg/mL (<=100) H 12/08/19 17:52 Total Protein 7.3 g/dL (6.4-8.9) 12/08/19 17:52 Albumin 3.8 g/dL (3.2-5.2) 12/08/19 17:52 Globulin 3.5 g/dL (2-4) 12/08/19 17:52 Albumin/Globulin Ratio 1.1 (1-3) 12/08/19 17:52 TSH 2.07 mcIU/mL (0.34-5.60) 12/09/19 05:45 12/08/19 12/09/19 17:52 05:45 Troponin I 0.04 H* 0.03 H* EKG Data: Telemetry: afib, rate 50's at rest. Assessment/Plan 89 yo with recurrent falls, marked OS BP changes, severe BiV cardiomyopathy, chronic afib, significant MR, TR and pulmonary HTN. Some improvement with compression stockings, midodrine added and removal of diuretics, carvedilol. BP's higher today, elevated, othrostasis persists but much improved on higher midodrine and compression stockings. This high risk patient looks ready for transfer to a rehab facility. Should f/u with cardiology, Dr Barrios in 1-2 weeks.
--- NOTE | 2019-12-15 13:29 | PN ---
Subjective Date of Service: 12/15/19 Interval History: HOSPITALIST PROGRESS NOTE Patient seen and examined at bedside. Care reviewed and d/w Jacqui Hamilton RN. She is in good spirits today. Able to get up from bed today with no symptoms. Family History: Unchanged from Admission Social History: Unchanged from Admission Past Medical History: Unchanged from Admission Objective Active Medications: Aspirin (Aspirin Tab*) 325 mg PO DAILY [facility] Last Admin: 12/15/19 07:29 Dose: 325 mg Escitalopram Oxalate (Lexapro *) 5 mg PO DAILY [facility]; Protocol Last Admin: 12/15/19 07:29 Dose: 5 mg Midodrine (Midodrine) 7.5 mg PO DAILY@0800 [facility]; Protocol Last Admin: 12/15/19 07:30 Dose: 7.5 mg Midodrine (Midodrine) 5 mg PO 1400,2100 [facility]; Protocol Last Admin: 12/14/19 21:49 Dose: 5 mg Vital Signs - 8 hr 12/15/19 12/15/19 12/15/19 07:15 07:32 08:47 Temperature 98.3 F Pulse Rate 57 57 Respiratory 18 16 Rate Blood Pressure 150/65 (mmHg) O2 Sat by Pulse 100 Oximetry 12/15/19 11:15 Temperature 97.5 F Pulse Rate 58 Respiratory 18 Rate Blood Pressure 173/69 (mmHg) O2 Sat by Pulse 98 Oximetry Oxygen Devices in Use Now: None Appearance: Pleasant elderly lady sitting up in bed in NAD Eyes: No Scleral Icterus Ears/Nose/Mouth/Throat: Mucous Membranes Moist Neck: Trachea Midline Respiratory: Symmetrical Chest Expansion and Respiratory Effort, Clear to Auscultation Cardiovascular: RRR - Normal S1 and S2 Abdominal: NL Sounds; No Tenderness; No Distention Extremities: No Edema Neurological: Alert and Oriented x 3, NL Muscle Strength and Tone Result Diagrams: 12/13/19 06:07 12/13/19 06:07 Assess/Plan/Problems-Billing Assessment: Mrs Montaño is an 89yo F with PMH of Afib not on AC due to GI bleed, CAD s/p CABG, HTN, CVA, HFrEF who presented to ED after a syncopal episode, found to have orthostatic hypotension due to overdiuresis. - Patient Problems (1) Syncope Comment: - In the setting of HFrEF and overdiuresis with orthostatic hypotension. - Seen by Cardiology as outpatient on 12/04/2019 and Furosemide was reduced to 3x/week, but still developed syncope. She has severe MR, TR with RV dysfunction on top of her EF 30% - she was referred to see Dr Fisher for possible MV repair, but not interested in procedures. - Conversation with Dr Keyes 12/09/2019 - Midodrine can cause more side effects than benefits. Lengthy conversation with patient and sons at bedside . Inclined not to pursue any aggressive measures, but interested in medication optimization and rehab. - Palliative care consult appreciated. - Cardiology consult appreciated - lengthy conversation with Dr Fall and patient - trial of Midodrine 5mg TID. She may be more hypertensive, but she certainly needs the preload to keep her CO. Avoid overnight medications for her BP, especially if asymptomatic. - Another near syncopal episode 12/14 was in the setting of checking orthostatics without compression stockings. When repeated with stockings on, she was still orthostatic, but with less variation. - Continue Midodrine 7.5mg in AM, 5mg afternoon and evening - responding well so far. (2) EMELY (acute kidney injury) Comment: - Pre renal in the setting of overdiuresis. - Renal function back to baseline. (3) DVT prophylaxis Comment: - SCDs. (4) DNR (do not resuscitate) Status and Disposition: Inpatient. Anticipate d/c to [facility] when stable.
--- NOTE | 2019-12-15 21:55 | DS ---
CC: Dr. Breanna Isabel; Dr. Latrell Barrios; Dr. Talita Mckeon; Dr. Eastman, [facility] * DISCHARGE SUMMARY: DATE OF ADMISSION: 12/08/19 TENTATIVE DATE OF DISCHARGE: 12/16/19 PRIMARY CARE PROVIDER: Dr. Breanna Isabel. INFORMATION SYSTEMS CONSULTANT: Dr. Latrell Barrios. PALLIATIVE CARE PHYSICIAN: Dr. Talita Mckeon. DISCHARGE DIAGNOSES: 1. Multiple episodes of near syncope secondary to significant orthostatic hypotension. 2. Autonomic dysfunction. 3. Severe biventricular cardiomyopathy/end-stage cardiomyopathy. 4. Severe mitral and tricuspid regurgitation. SECONDARY DIAGNOSES: 1. Atrial fibrillation, not on anticoagulation due to history of gastrointestinal bleed. 2. Coronary artery disease, status post coronary artery bypass graft. 3. Hypertension. 4. History of cerebrovascular accident. 5. Heart failure with reduced ejection fraction, with ejection fraction 20% to 25%. MEDICATIONS AT THE TIME OF TRANSFER: 1. Midodrine 7.5 mg p.o. daily at 8 a.m., 5 mg at 2 p.m. and 9 p.m. 2. Lexapro 5 mg p.o. daily. 3. Aspirin 325 mg p.o. daily. Carvedilol, furosemide, and spironolactone were discontinued due to hypotension and bradycardia. HOSPITAL COURSE: Ms. Montaño is an 89-year-old female with a past medical history stated above that presented to the emergency room on 12/08/19 after a near syncopal episode. She had had prior visits for similar complaints. For more details about her presentation, I refer you to her history and physical. As per son, the patient did not have issues with shortness of breath but she had significant peripheral edema. She had been seen by Dr. Barrios as outpatient and furosemide had been added to her regimen and her son endorses weight loss of greater than 11 pounds. She was having near syncopal episodes at home, so she was seen by Dr. Barrios and a nurse practitioner as an outpatient. At that point, her furosemide dose had been decreased to 3 times a week but she continued to be symptomatic. On admission, she was found to be intravascularly dry, had acute kidney injury, prerenal, and she received gentle IV hydration due to her poor ejection fraction and diuretics were held. Although her renal function went back to normal, she continued to have significant orthostatism. She was seen in consultation by Cardiology (Dr. Fall) and decision was made to start midodrine to help with her orthostatic changes. Her impression was that the patient had been admitted for recurrent falls, syncope, near syncope in the setting of severe biventricular heart failure and significant mitral and tricuspid insufficiency with chronic atrial fibrillation. She felt that the patient's new right-sided heart failure explained her relatively recent presentation with lower extremity edema followed by falling and orthostatic problems with diuresis. To prevent recurrent falling with her severe tricuspid insufficiency and severe RV hypokinesis, she is going to need to avoid overdiuresis. Her right ventricle needs preload to maintain blood pressure. Dr. Fall also recommended thigh-high compression stockings while the patient is out of bed. She also discussed the case with Dr. Barrios and provided literature. The midodrine would be a better option than Florinef as it does not cause fluid retention and it would help with her blood pressure. The patient had been referred to see Dr. Fisher as outpatient for possible mitral valve repair, but Dr. Fall felt that since this has been going on for so many years and now the patient has severe right heart failure and tricuspid insufficiency, it was her personal opinion that the patient was already at her end-stage biventricular failure. I had multiple conversations with the patient and her son regarding her poor prognosis and the patient was very clear that she would not want to pursue any invasive or aggressive measures. She would like to go to rehab and work towards returning to her apartment in [facility] and at that point, if her condition continues to decline, she would be open to the idea of hospice, although she is having a difficult time accepting that that is the stage she is in at this time. The patient had a prolonged hospital stay as we had to adjust her medications multiple times. At this point, with the current dose of midodrine and diligent use of thigh-high compression stockings, the patient still has drops in her blood pressure with changing position, but with no symptoms. Today, her blood pressure lying down was 175/73, standing up was 152/65, and she was able to ambulate with no dizziness or lightheadedness. Her Coreg was discontinued to allow for compensatory tachycardia and to also give more blood pressure room. Dr. Fall felt that if episodes of near syncope continued to happen, an option would be to add Corlanor for her CHF as it could be used off label for her autonomic insufficiency. Another option would be to consider adding Toprol- XL 12.5 to 25 mg if just the midodrine and thigh-high compression stockings are not enough. The patient is medically stable for discharge and the plan is for her to continue her rehabilitation process and return to independent living at [facility]. PHYSICAL EXAMINATION: Vital Signs: Temperature 97.3, heart rate is 55, respiratory rate is 18, oxygen saturation is 98% on room air, blood pressure is 167/72. General: The patient is a pleasant, elderly lady, sitting up in bed, in no acute distress. CVS: Normal S1, S2. Irregularly irregular. Chest: Breath sounds bilaterally with bibasilar crackles. Abdomen: Soft, nontender, nondistended. Bowel sounds present. Extremities: No pitting edema. Neuro: She is alert and oriented x3. Able to move all 4 extremities. Face is symmetric. DIET: Regular diet. ACTIVITIES: As tolerated. The patient should have thigh-high stockings at all times when out of bed. DISPOSITION: To [facility] for rehab. CONDITION AT THE TIME OF DISCHARGE: Fair. STATUS WHILE IN THE HOSPITAL: Inpatient. Please keep in mind, this is a summarized version of this patient's prolonged hospital stay. If you need more information, please feel free to call me at [phone] or please obtain full medical records. TIME SPENT: Approximately 50 minutes was spent to complete this discharge. [id number]/CPS #: [id number] LAURY
[2019-12-16] MEDS: Aspirin TAB* 325 MG PO SCH (07:19)
[2019-12-16] MEDS: Escitalopram * 5 MG TAB PO SCH (07:19)
--- NOTE | 2019-12-16 08:53 | DCNOTE ---
Subjective Date of Service: 12/16/19 Interval History: No c/o. No dyspnea, chest pain, dizziness. Slept well. Good appetite. Family History: Unchanged from Admission Social History: Unchanged from Admission Past Medical History: Unchanged from Admission Objective Active Medications: Aspirin (Aspirin Tab*) 325 mg PO DAILY [facility] Last Admin: 12/16/19 07:19 Dose: 325 mg Escitalopram Oxalate (Lexapro *) 5 mg PO DAILY [facility]; Protocol Last Admin: 12/16/19 07:19 Dose: 5 mg Midodrine (Midodrine) 7.5 mg PO DAILY@0800 [facility]; Protocol Last Admin: 12/16/19 07:19 Dose: 7.5 mg Midodrine (Midodrine) 5 mg PO 1400,2100 [facility]; Protocol Last Admin: 12/15/19 20:51 Dose: 5 mg Vital Signs - 8 hr 12/16/19 12/16/19 03:08 06:41 Temperature 98.1 F Pulse Rate 63 Respiratory 18 16 Rate Blood Pressure 176/78 (mmHg) O2 Sat by Pulse 97 Oximetry Oxygen Devices in Use Now: None Appearance: Alert, in a chair. In good spirits. Looks comfortable. Eyes: No Scleral Icterus Ears/Nose/Mouth/Throat: Clear Oropharnyx, Mucous Membranes Moist Neck: NL Appearance and Movements; NL JVP, No Thyroid Enlargement, Masses Respiratory: Symmetrical Chest Expansion and Respiratory Effort, Clear to Percussion, - - mild rhonchi L base Cardiovascular: No Edema, - - Irreg. 1/6 systolic murmur LSB Extremities: No Edema, No Clubbing, Cyanosis, - Neurological: Alert and Oriented x 3, NL Sensation Result Diagrams: 12/13/19 06:07 12/13/19 06:07 Microbiology and Other Data: Microbiology 12/08/19 19:50 Nasal Screen MRSA (PCR) - Final Nasal Mrsa Not Detected Assess/Plan/Problems-Billing Assessment: Mrs Montaño is an 89yo F with PMH of Afib not on AC due to GI bleed, CAD s/p CABG, HTN, CVA, HFrEF who presented to ED after a syncopal episode, found to have orthostatic hypotension due to overdiuresis. - Patient Problems (1) Syncope Current Visit: Yes Status: Acute Code(s): R55 - SYNCOPE AND COLLAPSE SNOMED Code(s): 897435055 Comment: - In the setting of HFrEF and overdiuresis with orthostatic hypotension. - Seen by Cardiology as outpatient on 12/04/2019 and Furosemide was reduced to 3x/week, but still developed syncope. She has severe MR, TR with RV dysfunction on top of her EF 30% - she was referred to see Dr Fisher for possible MV repair, but not interested in procedures. - Conversation with Dr Keyes 12/09/2019 - Midodrine can cause more side effects than benefits. Lengthy conversation with patient and sons at bedside . Inclined not to pursue any aggressive measures, but interested in medication optimization and rehab. - Palliative care consult appreciated. - Cardiology consult appreciated - lengthy conversation with Dr Fall and patient - trial of Midodrine 5mg TID. She may be more hypertensive, but she certainly needs the preload to keep her CO. Avoid overnight medications for her BP, especially if asymptomatic. - Another near syncopal episode 12/14 was in the setting of checking orthostatics without compression stockings. When repeated with stockings on, she was still orthostatic, but with less variation. - Continue Midodrine 7.5mg in AM, 5mg afternoon and evening - responding well so far. (2) Ischemic dilated cardiomyopathy Current Visit: No Status: Acute Code(s): I25.5 - ISCHEMIC CARDIOMYOPATHY; I42.0 - DILATED CARDIOMYOPATHY SNOMED Code(s): 203241589 Comment: LVEF 20-25% by echo 05/2018. (3) Slurred speech Current Visit: No Status: Acute Code(s): R47.81 - SLURRED SPEECH SNOMED Code(s): 636724763 Comment: Speech and mental state are improved this AM. (4) Atrial fibrillation Current Visit: No Status: Chronic Code(s): I48.91 - UNSPECIFIED ATRIAL FIBRILLATION SNOMED Code(s): 64547962 Comment: No AC due to hx GI bleed. - Currently rate controlled Status and Disposition: Discharge to [facility] today. Discussed with private aide at bedside also.
[2019-12-16 09:00] VITALS: BP 178/90
== END 2019-12-16 12:11 | DRG 312 ==
LOC: ED 17:06 → MEDTELE 19:26 → OBSVTOIN 12-09 13:00
PROVIDERS: ADMIT Internal Medicine; ATTEND Internal Medicine
PROC: 4A00X4Z Measurement of Central Nervous Electrical Activity, External Approach (ICD-10-PCS; principal; 2019-12-11)
DX: I95.1 Orthostatic hypotension (principal); I48.20 Chronic atrial fibrillation, unspecified; I50.22 Chronic systolic (congestive) heart failure; N17.9 Acute kidney failure, unspecified; I42.0 Dilated cardiomyopathy; R29.6 Repeated falls; I50.82 Biventricular heart failure; Z66 Do not resuscitate; F03.90 Unspecified dementia, unspecified severity, without behavioral disturbance, psychotic disturbance, mood disturbance, and anxiety; I25.5 Ischemic cardiomyopathy; E86.0 Dehydration; I45.10 Unspecified right bundle-branch block; T50.2X5A Adverse effect of carbonic-anhydrase inhibitors, benzothiadiazides and other diuretics, initial encounter; I27.20 Pulmonary hypertension, unspecified; M19.90 Unspecified osteoarthritis, unspecified site; Z96.652 Presence of left artificial knee joint; E87.6 Hypokalemia; R79.89 Other specified abnormal findings of blood chemistry; R47.81 Slurred speech; F45.8 Other somatoform disorders; I25.10 Atherosclerotic heart disease of native coronary artery without angina pectoris; I08.1 Rheumatic disorders of both mitral and tricuspid valves; E03.9 Hypothyroidism, unspecified; E78.5 Hyperlipidemia, unspecified; I11.0 Hypertensive heart disease with heart failure; Z91.81 History of falling; Z86.73 Personal history of transient ischemic attack (TIA), and cerebral infarction without residual deficits; Z95.1 Presence of aortocoronary bypass graft; Z79.82 Long term (current) use of aspirin; Z79.899 Other long term (current) drug therapy; Z79.890 Hormone replacement therapy; Z88.5 Allergy status to narcotic agent; Z88.8 Allergy status to other drugs, medicaments and biological substances; Z88.1 Allergy status to other antibiotic agents; Z87.891 Personal history of nicotine dependence; Y92.9 Unspecified place or not applicable
CPT/HCPCS: 36415; 80048; 80053; 81003; 81015; 83735; 83880; 84100; 84443; 84484; 85025; 87077; 87086; 87186; 87641; 93005; 95816; 99283; A9270-GY; G0378; J0360; J0696